=== PATIENT | female | born 1955 | race Caucasian/White ===

== ENCOUNTER 2018-10-09 07:00 | Day surgery (SDC) | payer OTHER ==
[~2018-10-09] VITALS: Ht 162.6 cm; Wt 83.9 kg
[~2018-10-09 07:00] MED LIST: 24 HOUR ALLERG9.9 ML NAS; ATENOLOL50 MG PO; BIOTIN1 MG PO; BUPROPION HCL200 MG PO; COZAAR100 MG PO; CYCLOBENZAPRINE10 MG PO; DOXYCYCLINE HY100 MG PO; FIBER THERAPY0.52 GM PO; FLUCONAZOLE150 MG PO; HAIR, SKIN & N1 EAC1 PO; HYDROCHLOROTH12.5 MG PO; LORATADINE10 MG PO; LOVASTATIN40 MG PO; MAGNESIUM400 M1 PO; MELOXICAM15 MG PO; NAPROXEN375 MG PO; NORCO 5-325 TA1 EACH PO; OMEPRAZOLE20 MG PO; OXYCODONE HCL5 MG PO; PROAIR HFA8.5 GM INH; PROBIOTIC1 EAC5 PO; VITAMIN D31000 UNI1 PO
--- NOTE | 2018-10-09 10:05 | NUR ---
10/09/18 Kurt5 Saranya Martin 1000 PT TO PACU AWAKE AND ALERT DENIES PAIN, RESP UNLABORDED. DRESSING CLEAN AND DRY
--- NOTE | 2018-10-09 10:23 | NUR ---
PT ALERT, ORIENTED AND SUPPORTED BY A FRIEND. THIS FWILL BE SURGERY #30 FOR PT. SHE SEEMED RELAXED AND HAD FEW QUESTIONS. PT REQUESTED PRAYER, WILL FOLLOW NEEDED
--- NOTE | 2018-10-09 16:07 | OR ---
[facility] [address], [place] [address] Signed DATE OF OPERATION: 10/09/2018 SURGEON: Ruslan Tamayo MD PREOPERATIVE DIAGNOSIS: Recurrent right axillary cyst/abscesses x3. POSTOPERATIVE DIAGNOSIS: Recurrent right axillary cyst/abscesses x3. PROCEDURE: Excision right axillary cyst x3. ESTIMATED BLOOD LOSS: None. INDICATIONS: Magi is a 63-year-old female who has had trouble with recurring right axillary cyst x3. There were two smaller ones inferiorly and one superiorly really up on proximal inner arm. It is closer to the axillary artery and vein. Her primary care provider had lanced these in the office, but felt they were too deep to pursue that any further. There was concern they were tracking as well since there were multiple. She was asked to see me as a general surgeon. She said she had them on and off for many years. She has also had some underneath her bra line and underneath her pannus. She said the doxycycline and the clindamycin have helped tremendously. She says she has never felt better in many many years. She has been very grateful to her primary care provider in that regard. In the office, I explained to Magi they often do track. We thought because of this and since there were multiple locations, we do it over at the hospital under good lighting with some IV sedation along with some local anesthetic. I reviewed with her the nature of the surgery along with the risks including, but not limited to bleeding, infection, scarring, change in contour of the skin as well as recurrent cyst in the same or other locations. She had expressed understanding and wished to proceed. PROCEDURE NOTE: Magi was seen in our preoperative area. We marked the three areas in the right axillary cyst. She was given 2 mg of Versed in our preop area. She was given preoperative antibiotics along with subcutaneous heparin. After this, she was taken into our operating room and placed in the supine position. SCDs were placed on her lower extremities. We did add 100 mcg of fentanyl in the operating room. After she was prepped and draped, we then used elliptical incisions around each of three areas and we Electronically Signed By: RUSLAN TAMAYO MD 10/09/18 1607 PATIENT NAME: MAGI MENA OPERATIVE REPORT DATE OF : 55 REPORT #: [id number] PHYSICIAN: RUSLAN TAMAYO MD PCP: REVA YOUNG REPORT IS CONFIDENTIAL AND NOT TO BE RELEASED WITHOUT AUTHORIZATION [facility] [address], [place] [address] Signed developed that sharply with a #15 blade knife as well as the cautery. We looked very carefully and did not find any tracking underneath the skin. All three cysts were markedly improved since I had seen her previously, I think with the help of her doxycycline and clindamycin. The underlying fat was quite healthy and we saw no tracking. After this, we had closed the dermis with interrupted 5-0 Monocryl sutures. The skin edges were reapproximated with a running 6-0 fast absorbing plain gut suture. Dry gauze and tape were then applied. Magi tolerated the procedure quite well. Ruslan Tamayo MD ALB/MODL /[id number] cc: VANITA Julian MD Copies: REVA YOUNG ANDREW L MD ~ Electronically Signed By: RUSLAN TAMAYO MD 10/09/18 1607 PATIENT NAME: MAGI MENA OPERATIVE REPORT DATE OF : 55 REPORT #: [id number] PHYSICIAN: RUSLAN TAMAYO MD PCP: REVA YOUNG REPORT IS CONFIDENTIAL AND NOT TO BE RELEASED WITHOUT AUTHORIZATION
== END 2018-10-09 10:47 | disposition home or self-care (01) ==
LOC: DS 07:00
PROVIDERS: Colon & Rectal Surgery
PROC: 0HBBXZZ Excision of Right Upper Arm Skin, External Approach (ICD-10-PCS; principal; 2018-10-09 09:00)
DX: L72.0 Epidermal cyst (principal); L02.411 Cutaneous abscess of right axilla; L90.5 Scar conditions and fibrosis of skin; I10 Essential (primary) hypertension; E78.5 Hyperlipidemia, unspecified; F17.210 Nicotine dependence, cigarettes, uncomplicated; Z88.2 Allergy status to sulfonamides; Z88.1 Allergy status to other antibiotic agents; Z88.8 Allergy status to other drugs, medicaments and biological substances; Z79.899 Other long term (current) drug therapy
CPT/HCPCS: 99153; G0500; J1100; J1644; J2250; J2405; J3010; J7120

== ENCOUNTER 2019-12-12 20:10 | Emergency (ER) | payer OTHER ==
[~2019-12-12] VITALS: Ht 162.6 cm; Wt 74.4 kg
--- OUTSIDE RECORDS SUMMARY | ~2019-12-12 | XMS | Encounter Summary ---
Demographics + + + | Address | [address] | | | [place] [address] | + + + | Home Phone | | + + + | Preferred Language | Unknown | + + + | Marital Status | Single | + + + | Anglican Affiliation | Unknown | + + + | Race | White | + + + | Ethnic Group | Not or | + + + Author + + + | Organization | Unknown | + + + | Address | Unknown | + + + | Phone | Unavailable | + + + Support + + + + + | Name | Relationship | Address | Phone | + + + + + | Kaila Ascencio | ECON | [place] | | | | | [address] | | + + + + + Care Team Providers + +------+ + | Care Director Operations Broadcast Name | Role | Phone | + +------+ + PCP | Unavailable | + +------+ + Encounter Details +--------+ + + + + | Date | Type | Department | Care Team | Description | +--------+ + + + + | 11/25/ | Transcribed | | Dictation, Other | Transcribed | | 1999 | | | | | +--------+ + + + [...] | | | + + + | Not on file | | + + + + + + + | Job Start Date | Occupation | Industry | + + + + | Not on file | Not on file | Not on file | + + + + + + + + | Travel History | Travel Start | Travel End | + + + + + + | No recent travel history available. | + + documented as of this encounter Progress Notes Interface, Pump House Technician In - 08/13/2006 3:11 AM [facility] [place] [address] [place], [place] [address] or November 25, 1998 DON SOLITARIO DO [address] [place] [address] RE: Magi Gómez MR#: [id number] Solitario: It was our pleasure to see Mrs. Gómez today in Urology Clinic. Thank you very much for sending with her the x-rays, nuclear scan and CT scan, as well as the summary of your excellent workup. You are well aware of her symptoms, so I will not bother to reiterate them for you. 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 Because of her chronic pain and recurring infections, I believe her best option is to have the upper pole segment removed. She is a single mom with four children at home, and is really unable to have this done before the end of the school year. I think it is acceptable for her to wait until then as long as she continues on suppressive antibiotics to prevent another round of pyelonephritis. Also, she is requiring occasional pain medication for which she ordinarily takes Ibuprofen and occasional Vicodin, and I think that is an acceptable treatment to see her through until January. Thank you for the kind referral and allowing me to participate in this woman's care. If you have any questions or concerns, please do not hesitate to give me a call. Sincerely, Keshav Prado M.D. EF:[id number] cc: ARLENE WEST MD [address], [address] [place] [email or web address] signed by Interface, Pump House Technician In at 08/13/2006 3:11 AM PSTdocumented in this encounter Plan of Treatment Not on filedocumented as of this encounter Visit Diagnoses Not on filedocumented in this encounter"
--- OUTSIDE RECORDS SUMMARY | ~2019-12-12 | XMS | Encounter Summary ---
Demographics + + + | Address | [address] | | | [place] [address] | + + + | Home Phone | | + + + | Preferred Language | Unknown | + + + | Marital Status | Single | + + + | Anabaptism Affiliation | Unknown | + + + | Race | White | + + + | Ethnic Group | Not or | + + + Author + + + | Author | [facility] | + + + | Organization | [facility] | + + + | Address | Unknown | + + + | Phone | Unavailable | + + + Support + + + + + | Name | Relationship | Address | Phone | + + + + + | Kaila Ascencio | [address] | [place] | | | | | [address] | | + + + + + Care Team Providers + +------+ + | Care Soda Fountain Operator Name | Role | Phone | + +------+ + PCP | Unavailable | + +------+ + Encounter Details +--------+ + + + + | Date | Type | Department | Care Team | Description | +--------+ + + + + | 01/10/ | Results | [facility] | Keshav Prado MD | | | 1998 | Only | [address] | | | | | | Loop Mailcode: [id number] | | | | | | Physician's | | | | | | [address] | | | | | | [place], [place] | | | | | | [address] | | | | | | [phone] | | | +--------+ + + + [...] as of this encounter Plan of Treatment Not on filedocumented as of this encounter Procedures + +--------+ + + + | Procedure Name | Priori | Date/Time | Associated Diagnosis | Comments | | | ty | | | | + +--------+ + + + | CHEST, 1 VIEW, | Urgent | 01/10/1999 | | Results for this | | PORTABLE | | 5:10 PM | | procedure are in the | | | | PDT | | results section. | + +--------+ + + + documented in this encounter Results CHEST, 1 VIEW, PORTABLE (01/10/1999 5:10 PM PDT) + + + + + + | Component | Value | Ref Range | Performed | Pathologist | | | | | At | Signature | + + + + + + | CHEST, 1 | Radiologist 1: MARIOLA, | | | | | VIEW, | Yasmine ALEJANDRO-Radiologist | | | | | PORTABLE | 2: FLAVIA GARNETT | | | | | Tamiko UnderwoodPORTABLE AP VIEW OF | | | | | | THE CHEST: 01/10/99. | | | | | | Dictated 01/12/99 | | | | | | FINDINGS: In the right | | | | | | mid lung, there is a | | | | | | small amount of | | | | | | linearsubsegmental | | | | | | atelectasis. The lungs | | | | | | are otherwise clear. | | | | | | The heartand | | | | | | mediastinal contours are | | | | | | unremarkable. There | | | | | | is no effusion | | | | | | orpneumothorax. The | | | | | | tip of an epidural | | | | | | catheter is over the | | | | | | midthoracic spine. | | | | | | IMPRESSION: 1. Small | | | | | | amount of right mid | | | | | | lung, linear | | | | | | subsegmental | | | | | | atelectasis. 2. | | | | | | Epidural catheter. | | | | | | END OF IMPRESSION: | | | | + + + + + + + + | Specimen | + + | | + + + +---------+ + + | Performing | Address | City/State/Zipcode | Phone Number | | Organization | | | | + +---------+ + + | [facility] | | | | | RADIOLOGY | | | | + +---------+ + + documented in this encounter Visit Diagnoses Not on filedocumented in this encounter"
--- OUTSIDE RECORDS SUMMARY | ~2019-12-12 | XMS | Encounter Summary ---
Demographics + + + | Address | [address] | | | [place] [address] | + + + | Home Phone | | + + + | Preferred Language | Unknown | + + + | Marital Status | Single | + + + | Mosque Affiliation | Unknown | + + + | Race | White | + + + | Ethnic Group | Not or | + + + Author + + + | Author | [facility] | + + + | Organization | [facility] | + + + | Address | Unknown | + + + | Phone | Unavailable | + + + Support + + + + + | Name | Relationship | Address | Phone | + + + + + | Kaila Ascencio | [address] | [place] | | | | | [address] | | + + + + + Care Team Providers + +------+ + | Care It Security Manager Name | Role | Phone | + +------+ + PCP | Unavailable | + +------+ + Encounter Details +--------+ + + + + | Date | Type | Department | Care Team | Description | +--------+ + + + + | 01/10/ | Results | LAB CORE [address] | Tam, Faculty | | | 1998 | Only | [address] | [phone] | | | | | [place], [place] | | | | | | [address] | | | | | | [phone] | | | +--------+ + + + [...] | + +--------+ + + + | SURGICAL PATHOLOGY | Routin | 01/10/1999 | | Results for this | | | e | | | procedure are in the | | | | | | results section. | + +--------+ + + + documented in this encounter Results SURGICAL PATHOLOGY (01/10/1999) + + + + + + | Component | Value | Ref Range | Performed | Pathologist | | | | | At | Signature | + + + + + + | SURGICAL | SOURCE OF SPECIMEN: SEE | | [facility] | | | PATHOLOGY | RESULTS | | DEPARTMENT | | | | Preliminary | | OF | | | | History:CLINICAL HISTORY | | PATHOLOGY | | | | Patient Age: | | | | | | 43 year old female. 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 | | | | | | Recurrentpyelonephritis | | | | | | and nonfunctioning upper | | | | | | pole. GROSS | | | | | | DESCRIPTION | | | | | | Specimens received: 1 | | | | | | in formalin. #1 | | | | | | UPPER POLE, LEFT | | | | | | KIDNEY AND LEFT UPPER | | | | | | POLE, URETER: Received | | | | | | is aportion of kidney | | | | | | measuring 2.5 x 2.5 x | | | | | | 1.5 cm, remnant of | | | | | | uretermeasuring 1.5 cm | | | | | | in length x 0.5 cm in | | | | | | diameter, and slight | | | | | | amounts ofattached | | | | | | perinephric fat weighing | | | | | | 8 grams. The serosa | | | | | | is varela to darkred, | | | | | | smooth to slightly | | | | | | scabrous. Also | | | | | | received is a length of | | | | | | ureter measuring 7.5 cm | | | | | | in length x 0.5 cmin | | | | | | diameter. The ureter | | | | | | is opened longitudinally | | | | | | to reveal a varela tolight | | | | | | pink, smooth mucosa | | | | | | with a circumference | | | | | | measuring 1.0 cm. | | | | | | Thecapsule pulls with | | | | | | ease to reveal a | | | | | | cortical surface that is | | | | | | varela to red,and | | | | | | granular. The specimen | | | | | | and the remnants of | | | | | | attached ureter | | | | | | arebivalved to reveal a | | | | | | patent ureter with a varela | | | | | | to pink mucosa. | | | | | | Thekidney reveals a | | | | | | varela to red cortex | | | | | | measuring 0.5 cm thick | | | | | | with medullaryrays and | | | | | | blunted pyramids. The | | | | | | ureter is probe patent | | | | | | into the renalpelvis. | | | | | | Palpation of the | | | | | | attached perinephric fat | | | | | | reveals no lymphnodes. | | | | | | CASSETTE INDEX:1A | | | | | | transverse and | | | | | | longitudinal section of | | | | | | ureter received free in | | | | | | specimen container, | | | | | | RS.1B anterior aspect | | | | | | of upper pole of | | | | | | kidney, with attached | | | | | | remnant of ureter, | | | | | | RS.1C posterior aspect | | | | | | of left upper pole of | | | | | | kidney with attached | | | | | | remnant of ureter, | | | | | | RS. All tissue | | | | | | sections taken are | | | | | | submitted for | | | | | | microscopic | | | | | | evaluation.SP/AH:EH/WR:t | | | | | | m FINAL | | | | | | DIAGNOSIS#1 UPPER | | | | | | POLE, LEFT KIDNEY AND | | | | | | LEFT UPPER POLE, URETER: | | | | | | RENAL TISSUE WITH | | | | | | CHANGES CONSISTENT WITH | | | | | | CHRONIC NEPHRITIS | | | | | | URETER WITH CHRONIC | | | | | | INFLAMMATION Case | | | | | | reviewed by: Dedrick Delarosa | | | | | | Yasmine MadrigalAlso seen by: | | | | | | Ronak Pino, | | | | | | Yasmine Anthony I have | | | | | | reviewed the keyfindings | | | | | | of this case with the | | | | | | fellow and agree with | | | | | | the | | | | | | interpretationprovided.T | | | | | | :01/13/99/ My | | | | | | electronic signature | | | | | | indicates that I have | | | | | | personally reviewed | | | | | | alldiagnostic slides, | | | | | | the gross and/or | | | | | | microscopic portion of | | | | | | thisreport and | | | | | | formulated the final | | | | | | diagnosis. | | | | + + + + + + + + | Specimen | + + | Other | + + + + + + + | Performing | Address | City/State/Zipcode | Phone Number | | Organization | | | | + + + + + | [facility] | [address] | [place] [address] | | | PATHOLOGY | [address] | | | + + + + + documented in this encounter Visit Diagnoses Not on filedocumented in this encounter"
--- OUTSIDE RECORDS SUMMARY | ~2019-12-12 | XMS | Clinical Summary ---
Demographics + + + | Address | [address] | | | [place] [address] | + + + | Home Phone | | + + + | Preferred Language | Unknown | + + + | Marital Status | | + + + | Mandaeism Affiliation | Unknown | + + + | Race | Unknown | + + + | Ethnic Group | Unknown | + + + Author + + + | Author | [facility] (Historical as of | | | 04-05-19) | + + + | Organization | [facility] (Historical as of | | | 04-05-19) | + + + | Address | Unknown | + + + | Phone | Unavailable | + + + Support + + +---------+ + | Name | Relationship | Address | Phone | + + +---------+ + | Janak Ascencio | ECON | Unknown | | + + +---------+ + | Jessica Thakkar | ECON | Unknown | | + + +---------+ + | Aure Ascencio | ECON | Unknown | | + + +---------+ + | Farhad Stearns | ECON | Unknown | | + + +---------+ + Care Team Providers + +------+ + | Care Shot Lighter Name | Role | Phone | + +------+ + | Karla Payna PA-C | STEVE | Unavailable | + +------+ + Allergies + + + + + + | Active Allergy | Reactions | Severity | Noted | Comments | | | | | Date | | + + + + + + | Sulfa Antibiotics | Hives | High | 10/01/19 | | | | | | 15 | | + + + + + + Current Medications + + +-------+---------+------+------+-------+ | Prescription | Sig. | Disp. | Refills | Star | End | Statu | | | | | | t | Date | s | | | | | | Date | | | + + +-------+---------+------+------+-------+ | TGT PSYLLIUM FIBER | Take 3 tablets by | | | | | Activ | | PO | mouth daily. | | | | | e | + + +-------+---------+------+------+-------+ | VIT | Take 1 tablet by | | | | | Activ | | W/NO-XJBJCCYNI-AR PO | mouth daily. | | | | | e | + + +-------+---------+------+------+-------+ | loratadine | Take 10 mg by mouth | | | | | Activ | | (CLARITIN) 10 MG | daily. | | | | | e | | tablet | | | | | | | + + +-------+---------+------+------+-------+ | naproxen sodium | Take 220 mg by mouth | | | | | Activ | | (ANAPROX) 220 MG | daily. | | | | | e | | tablet | | | | | | | + + +-------+---------+------+------+-------+ | omeprazole | Take 20 mg by mouth | | | | | Activ | | (PRILOSEC) 20 MG | every morning before | | | | | e | | capsule | breakfast. | | | | | | + + +-------+---------+------+------+-------+ | Calcium | Take 1 tablet by | | | | | Activ | | Citrate-Vitamin D | mouth daily. | | | | | e | | (CALCIUM CITRATE + | | | | | | | | D) 315-250 MG-UNIT | | | | | | | | TABS | | | | | | | + + +-------+---------+------+------+-------+ | doxycycline | Take 100 mg by mouth | | | | | Activ | | (MONODOX) 100 MG | 2 (two) times | | | | | e | | capsule | daily. | | | | | | + + +-------+---------+------+------+-------+ | Probiotic Product | Take 1 tablet by | | | | | Activ | | (TRIPLE PROBIOTIC | mouth daily. | | | | | e | | PO) | | | | | | | + + +-------+---------+------+------+-------+ | losartan (COZAAR) | Take 100 mg by mouth | | | | | Activ | | 100 MG tablet | daily. | | | | | e | + + +-------+---------+------+------+-------+ | | Take 25 mg by mouth | | | | | Activ | | hydrochlorothiazide | daily. | | | | | e | | (HYDRODIURIL) 25 MG | | | | | | | | tablet | | | | | | | + + +-------+---------+------+------+-------+ | buPROPion | Take 150 mg by mouth | | | | | Activ | | (WELLBUTRIN SR) 150 | 2 (two) times | | | | | e | | MG 12 hr tablet | daily. | | | | | | + + +-------+---------+------+------+-------+ | lovastatin | Take 20 mg by mouth | | | | | Activ | | (MEVACOR) 20 MG | nightly. | | | | | e | | tablet | | | | | | | + + +-------+---------+------+------+-------+ Active Problems + + + | Problem | Noted Date | + + + | Cervical radicular pain | 10/01/2014 | + + + + + | Last Assessment & Plan: This patient's symptoms started in | | 2013 without injury or trauma. The most severe pain she had was | | in May when her boyfriend was fighting cancer and passed | | away. Her pain over the past week has significant improved. She | | reports minimal neck pain, but the majority complaint is arm | | numbness and tingling and pain. She denies any bowel/bladder | | dysfunction. She denies any cervicogenic headaches. She has | | tried NSAIDs, Wellbutrin and a steroid pack. She had a cervical | | MRI that showed a mild broad based disk bulges at C5-6 Combined | | with facet hypertrophy contributes to severe bilateral foraminal | | narrowing. Broad based disk bulge with posterior ligament | | calcifications contributing to left foraminal narrowing. At this | | time her symptoms have mostly resolved. She is going to | | continue with conservative measures for now, however if her | | symptoms return, then she will call the office. Her symptoms are | | most likely due to the disk bulge at C5-6 and C6-7. Would | | probably proceed with a C7-T1 cervical epidural steroid injection | | under fluoroscopic guidance. We also discussed other treatment | | options, including physical therapy, gabapentin, NSAIDs, | | acupuncture, chiropractic, massage.Plan, alternatives, risks and | | potential benefits of the procedure were explained to the patient | | in great detail. The patient understands that there is no | | guarantee they will get pain relief with this procedure. They | | also understand that if they do get pain relief that there is no | | way to know how long it will last. They also understand there is | | a risk to the procedure itself which includes but are not | | limited to infection, abscess, hematoma, nerve damage, paraplegia | | or quadriplegia, increased pain, spinal headache, stroke, and | | side effects from the medications themselves. The patient wishes | | to proceed. 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) | | + + + + + | Last Assessment & Plan: Please see discussion under cervical | | radicular pain | + + Family History + + +------+ + | Medical History | Relation | Name | Comments | + + +------+ + | Heart disease | Father | | | + + +------+ + | Stroke | Father | | | + + +------+ + | Hypertension | Mother | | | + + +------+ + + +------+ + + | Relation | Name | Status | Comments | + +------+ + + | Father | | | | + +------+ + + | Mother | | Alive | | + +------+ + + Social History + +-------+ +--------+------+ | Tobacco Use | Types | Packs/Day | Years | Date | | | | | Used | | + +-------+ +--------+------+ | Current Every Day | | 0.5 | | | | Smoker | | | | | + +-------+ +--------+------+ + + +---------+ + | Alcohol Use | Drinks/We | oz/Week | Comments | | | ek | | | + + +---------+ + | Yes | 3-4 | 0.0 | | | | Standard | | | | | drinks or | | | | | | | | | | equivalen | | | | | t | | | + + +---------+ + + + + | Sex Assigned at | Date Recorded | | | | + + + | Not on file | | + + + Last Filed Vital Signs + + + + | Vital Sign | Reading | Time Taken | + + + + | Blood Pressure | 130/86 | 10/01/2014 11:39 AM PST | + + + + | Pulse | - | - | + + + + | Temperature | - | - | + + + + | Respiratory Rate | - | - | + + + + | Oxygen Saturation | - | - | + + + + | Inhaled Oxygen | - | - | | Concentration | | | + + + + | Weight | 81.6 kg (180 lb) | 10/01/2014 11:39 AM PST | + + + + | Height | 161.3 cm (5' 3.5") | 10/01/2014 11:39 AM PST | + + + + | Body Mass Index | 31.39 | 10/01/2014 11:39 AM PST | + + + + Plan of Treatment + + + + + | Health Maintenance | Due Date | Last Done | Comments | + + + + + | Vaccine: | | | | | Dtap/Tdap/Td (1 - | 4 | | | | Tdap) | | | | + + + + + | Cervical Cancer | | | | | Screening (Pap) | 5 | | | + + + + + | Vaccine: Zoster (1 | | | | | of 2) | 5 | | | + + + + + | Vaccine: Influenza | | | | | (Season Ended) | 0 | | | + + + + + Results Not on filefrom Last 3 Months Insurance + +--------+ +------+-------+ + | Payer | Benefi | Subscriber | Type | Phone | Address | | | t Plan | ID | | | | | | / | | | | | | | Group | | | | | + +--------+ +------+-------+ + | MEDICAID | [place] | [id number] | | | [address] | | | N | | | | [place], [place] | | | [place] | | | | [phone] | | | [employer] | | | | | + +--------+ +------+-------+ + + +--------+ +--------+ + + | Guarantor Name | Accoun | Relation to | Date | Phone | Billing Address | | | t Type | Patient | of | | | | | | | | | | + +--------+ +--------+ + + | MAGI GÓMEZ | Person | Self | [birth year] | Work: | [address] | | [address] | | [phone] | [phone] | [place] [address] | | | vince | | | [phone] Home: | | | | | | | | | | | | | | [phone] | | | | | | | 1 | | + +--------+ +--------+ + +
--- OUTSIDE RECORDS SUMMARY | ~2019-12-12 | XMS | Clinical Summary ---
Demographics + + + | Address | [address] | | | [place] [address] | + + + | Home Phone | | + + + | Preferred Language | Unknown | + + + | Marital Status | Single | + + + | Worship Affiliation | Unknown | + + + [...] [place] | | | | | [id number] | | + + + + + Care Team Providers + +------+ + | Care Pulper Tender Name | Role | Phone | + +------+ + PCP | Unavailable | + +------+ + Source Comments KEENAN is fully live on both [facility] and [facility] Allergies Not on File Medications Not on file Active Problems Not on file Social History + +-------+ +--------+------+ | Tobacco [...] recent travel history available. | + + Last Filed Vital Signs Not on file Plan of Treatment + + + + + | Health Maintenance | Due Date | Last Done | Comments | + + + + + | Influenza (Flu) | | | | | vaccination (#1) | 9 | | | + + + + + | Pneumococcal | Aged Out | | No longer eligible | | vaccination | | | based on patient's | | | | | age to complete this | | | | | topic | + + + + + Results Not on filefrom Last 3 Months"
--- OUTSIDE RECORDS SUMMARY | ~2019-12-12 | XMS | Encounter Summary ---
Demographics + + + | Address | [address] | | | [place] [address] | + + + | Home Phone | | + + + | Preferred Language | Unknown | + + + | Marital Status | Single | + + + | Hoahaoism Affiliation | Unknown | + + + | Race | White | + + + | Ethnic Group | Not or | + + + Author + + + | Author | [facility] | + + + | Organization | [facility] | + + + | Address | Unknown | + + + | Phone | Unavailable | + + + Support + + + + + | Name | Relationship | Address | Phone | + + + + + | Kaila Ascencio | JOEY | [place] | | | | | [phone] | | + + + + + Care Team Providers + +------+ + | Care Military Source Operations Specialist Name | Role | Phone | + +------+ + PCP | Unavailable | + +------+ + Encounter Details +--------+ + + + + | Date | Type | Department | Care Team | Description | +--------+ + + + + | 11/25/ | Office | [facility] | Note, Outpatient | Progress Note | | 1998 | Visit-Trans | MEDICINE | Clinic | | | | cribed | | | | +--------+ + + [...] as of this encounter Progress Notes Interface, Computer Forensics Analyst In - 08/13/2006 3:11 AM PSTCLINIC DATE: 11/25/1998 ADULT UROLOGY CLINIC HISTORY OF PRESENT ILLNESS: The patient is a 45-year-old female who is referred from her family practitioner, Dany Orozco M.D., in [facility] for chronic pyelonephritis. The patient notes that she has had urinary difficulties dating back as far as 20 years ago. She was hospitalized at age 18 for pyelonephritis and has had a history of one to two kidney infections since. The patient reports that her kidney infections are always on her left side. When she begins experiencing this left-sided flank pain, she contacts her family practitioner in [place], who then treats her with a 10-day course of antibiotics. The symptoms always resolve after the course of antibiotics, but then recur. The patient had a hysterectomy three years ago, and since the hysterectomy, the left-sided kidney infections have increased in frequency to three to four times per year. In July of 1998, the patient presented to an emergency room in [place] with excruciating left-sided flank pain and was found to have a white blood cell count of 23,000 and a temperature of 101F. She was hospitalized and treated for pyelonephritis for five days. After discharge from this hospital in [place], the patient received a Urology consult. A CAT scan showed a probable ureterocele and cystoscopy confirmed the ureterocele. 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 The patient reports that she is currently in constant left-sided flank pain, which she describes more as a discomfort. She takes aspirin and Tylenol for the pain, but has taken Vicodin in the past. She does have urgency with urination and gets up one to times per night to urinate. She denies having any dysuria. She does occasionally have stress incontinence. She denies any hematuria. She denies any fever or chills at this time. PAST MEDICAL HISTORY: Negative. PAST SURGICAL HISTORY: Includes: a hysterectomy in 1996 for irregular Pap smears; a right ovarian cyst removal at age 12; an appendectomy at age 12, at the same time as the right ovarian cyst removal; two subsequent surgeries for ovarian cysts; gallbladder removal in 1989; section in 1982; three vaginal births; and bone spur removal from her left elbow in 1984. MEDICATIONS: 1. Macrodantin, 100 mg q.h.s. 2. Premarin, 1.25 mg q.d. 3. Claritin-D, 24-Hour, 1 q.d. 4. Aspirin p.r.n. 5. Tylenol p.r.n. 6. Multivitamin. HABITS: The patient is a smoker. She smokes one-half pack per day for the past 20 years. She drinks alcohol in the amount of three to five beers per night. SOCIAL HISTORY: The patient lives in [facility]. She is a single mother with four children, ranging in age from 10 to 18. 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 FAMILY HISTORY: There is no family history of kidney problems and no family history of cancer. The patient's mother has hypertension. There is no family history of coronary artery disease or diabetes mellitus. REVIEW OF SYSTEMS: GENERAL: The patient is a pleasant 45-year-old white female who appears her stated age, is cooperative, and does not appear to be in any acute distress. HEENT: Negative, other than that the patient wears glasses. The patient denies any increased fatigue. She says that she is under a lot of stress and has gained 40 lb. since her hysterectomy three years ago. CARDIOVASCULAR: Negative. LUNGS: Negative. GI: Negative. NEUROLOGICAL: The patient does have some dizziness, which she attributes to inner ear problems. The patient also has occasional tension headaches, but denies any focal neural symptoms. MUSCULOSKELETAL: Negative. GENITOURINARY: As above. PHYSICAL EXAMINATION: VITAL SIGNS: BLOOD PRESSURE: 120/74. HEART: Regular rate and rhythm, without murmurs. LUNGS: Clear to auscultation bilaterally. ABDOMEN: Mildly obese, but nondistended. Normoactive bowel sounds are present. No tenderness is present, and no masses were felt. No hepatosplenomegaly is present. BACK: There is left-sided costovertebral angle tenderness but no right-sided costovertebral angle tenderness. EXTREMITIES: Show no edema. LABORATORY DATA: Urinalysis showed a specific gravity of 1.005, pH 6, and was negative for glucose, protein, blood, leukocyte esterase, and nitrites. ASSESSMENT: 1. Chronic pyelonephritis. 2. Left-sided duplex renal system with ureterocele. 3. Poorly-functioning left upper pole of kidney. PLAN: 1. A discussion was had with the patient regarding options for treatment of her chronic pyelonephritis. The patient was in agreement that surgery would be the best option. The patient will call Dr. Prado to schedule a left upper pole nephrectomy for sometime during the summer of 1998. 2. The patient was advised to continue Macrodantin, 100 mg q.h.s., which can be taken as 100 mg b.i.d. if the patient experiences symptoms of increasing left-sided flank pain. 3. The patient was given Vicodin, to be taken 1 q.6h., p.r.n., #30, for left-sided flank pain. Jennie Singh, MS3 Dictating for: Yasmine Fox/ documented in this encounter Plan of Treatment Not on filedocumented as of this encounter Visit Diagnoses Not on filedocumented in this encounter"
--- OUTSIDE RECORDS SUMMARY | ~2019-12-12 | XMS | Encounter Summary ---
Demographics + + + | Address | [address] | | | [place] [address] | + + + | Home Phone | | + + + | Preferred Language | Unknown | + + + | Marital Status | | + + + | Confucianist Affiliation | [id number] | + + + | Race | Unknown | + + + | Ethnic Group | Unknown | + + + Author + + + | Author | [facility] | | | and [place] | + + + | Organization | [facility] | | | and [place] | + + + | Address | Unknown | + + + | Phone | Unavailable | + + + Support + + +---------+ + | Name | Relationship | Address | Phone | + + +---------+ + | Aure Ascencio | ECON | Unknown | | + + +---------+ + Care Team Providers + +------+ + | Care Promotion Manager Name | Role | Phone | + +------+ + PCP | Unavailable | + +------+ + Encounter Details +--------+ + + + + | Date | Type | Department | Care Team | Description | +--------+ + + + + | 08/18/ | Hospital | [facility] [place] [facility] | Conversion | Pain | | 2014 | Encounter | CONVERSION DEP [address] | Transaction, | | | | | DERRICK RIZZO | Provider Unknown | | | | | [place] | | | | | | [phone] | | | | | | [phone] | | | +--------+ + + + [...] Note | + + | Magdaleno Michaels Conversion - 04/04/2019 6:02 PM PDT This is a non-reportable procedure | | without a radiologist report and isused for image storage only | + + documented in this encounter Visit Diagnoses + + | Diagnosis | + + | Pain Generalized pain | + + documented in this encounter"
--- OUTSIDE RECORDS SUMMARY | ~2019-12-12 | XMS | Clinical Summary ---
Demographics + + + | Address | [address] | | | [place] [address] | + + + | Home Phone | | + + + | Preferred Language | Unknown | + + + | Marital Status | Single | + + + | Congregation Affiliation | Unknown | + + + [...] [place] | | | | | [address] | | + + + + + Care Team Providers + +------+ + | Care Javascript Front End Developer Name | Role | Phone | + +------+ + PCP | Unavailable | + +------+ + Source Comments KEENAN is fully live on both [facility] and [facility] InPatient.[facility] Allergies Not on File Medications Not on [...]
--- OUTSIDE RECORDS SUMMARY | ~2019-12-12 | XMS | Encounter Summary ---
Demographics + + + | Address | [address] | | | [place] [address] | + + + | Home Phone [...] [place] | | | | | [address] | | + + + + + Care Team Providers + +------+ + | Care Poultry Farmer Name | Role | Phone | + [...] as of this encounter Progress Notes Interface, Shop Cooper In - 08/13/2006 3:11 AM [facility] and [place] [id number] [place], [place] [address] or November 25, 1998 DON SOLITARIO DO [address] [place] [address] RE: Magi Gómez MR#: [id number] [...] [address], [address] [place] [address]Urnaesggavsevs signed by Interface, Shop Cooper In at 08/13/2006 3:11 AM PSTdocumented in this encounter Plan of Treatment Not on filedocumented as of this encounter Visit Diagnoses Not on filedocumented in this encounter"
--- OUTSIDE RECORDS SUMMARY | ~2019-12-12 | XMS | Encounter Summary ---
Demographics + + + | Address | [address] | | | [place] [address] | + + + | Home Phone | | + + + | Preferred Language | Unknown | + + + | Marital Status | Single | + + + | Buddhism Affiliation | Unknown | + + + [...] [place] | | | | | [address] | | + + + + + Care Team Providers + +------+ + | Care Jewelry Setter Name | Role | Phone | + [...] | Transcriptions | + + | Interface, Inking Machine Tender In - 08/10/2006 5:08 AM PST | | [place] [address] | | [place], [place] [address] | | [facility] CountyOPER[facility] RECORDMed Rec No.: | | [id number] Date: 01/10/1999Name: Magi GómezREINALDO SURGEON:Keshav Daniels | | Yasmine PradoASSISTANTS: Bridger [...] a running 3-0 Chromic. Next, the 10th ztt72ky ribs were | | approximated with a single 0-Biosyn and the posterior fasciawas approximated using a | | running 0-Biosyn. Next, the anterior fascia wasclosed with xyuelm-cx-rrdgw 0-Maxon. | | Prior to starting the closure, weplaced a #20 Latvian red Macias catheter into | | the [...] | Urology Professor, Surgery/UrologyCK:x11D: 01/10/1999T: | | 01/11/1999#[id number]: | |incision was made over the 11th [...] the anterior fascia was | |closed with brrmfw-hd-ikiam 0-Maxon. Prior to starting the closure, we | |placed a #20 Latvian red Macias catheter into the pleural cavity [...] | | | | | | | |#[id number] | | | | | |[id number] | |CC: | + + documented in this encounter Visit Diagnoses Not on filedocumented in this encounter"
--- OUTSIDE RECORDS SUMMARY | ~2019-12-12 | XMS | Clinical Summary ---
Demographics + + + | Address | [address] | | | [place] [address] | + + + | Home Phone | | + + + | Preferred Language | Unknown | + + + | Marital Status | | + + + | Sikh Affiliation | 1073 | + + + | Race | Unknown | + + + | Ethnic Group | Unknown | + + + Author + + + | Author | [facility] | | | and [place] | + + + | Organization | [facility] | | | and [...] Providers + +------+ + | Care Child Care Aide Name | Role | Phone | + +------+ + | Karla Payan PA-C | PCP | | + +------+ + Allergies Not on File Medications Not on file Active Problems Not on file Family History + + +------+ + | [...] | | + +------+ + + | Father | | | | + +------+ + + | Mother | | Alive | | + +------+ + + | Mother | | | | + +------+ + [...] + + + | Hepatitis C | | | | | Screening | 5 | | | + + + + + | Vaccine: | | | | | Pneumococcal 19- | 1 | | | | (1 of 1 - PPSV23) | | | | + + + + + | Vaccine: | | | | | Dtap/Tdap/Td (1 - | 6 | | | | Tdap) | | | | + + + + + | Cervical Cancer | | | | | Screening (Pap) | 5 | | | + + + + + | Colorectal Cancer | | | | | Screening | 5 | | | | (Colonoscopy) | | | | + + + [...] Results Not on filefrom Last 3 Months Advance Directives + + + + + | Type | Date Recorded | Patient | Explanation | | | | Account Classification Clerk | | + + + + + | Power of | | | | | Repack Room Worker | | | | + + + + + | Advance | | | | | Directive | | | | + + + + +"
--- OUTSIDE RECORDS SUMMARY | ~2019-12-12 | XMS | Encounter Summary ---
Demographics + + + | Address | [address] | | | [place] [address] | + + + | Home Phone | | + + + | Preferred Language | Unknown | + + + | Marital Status | Single | + + + | Catholic Affiliation | Unknown | + + + [...] [place] | | | | | [address] | | + + + + + Care Team Providers + +------+ + | Care Willower Name | Role | Phone | + [...] | Transcriptions | + + | Interface, Municipal Court Magistrate In - 08/10/2006 5:08 AM PST | | [place] [address] [address] | | [place], [place] [address] | | [facility] | | [id number] Date: [...] a running 3-0 Chromic. Next, the 10th buo50qd ribs were | | approximated with a single 0-Biosyn and the posterior fasciawas approximated using a | | running 0-Biosyn. Next, the anterior fascia wasclosed with cftsar-dd-zhbzr 0-Maxon. | | Prior to starting the closure, weplaced a #20 Armenian red Macias catheter into | | the [...] | Urology Professor, Surgery/UrologyCK:x11D: 01/10/1999T: | | 01/11/1999#[id number]: | |incision was made over the 11th [...] the anterior fascia was | |closed with iyvmov-ou-oeyfb 0-Maxon. Prior to starting the closure, we | |placed a #20 Armenian red Macias catheter into the pleural cavity [...] | | | | | | | |#[id number] | | | | | |[id number] | |CC: | + + documented in this encounter Visit Diagnoses Not on filedocumented in this encounter"
--- OUTSIDE RECORDS SUMMARY | ~2019-12-12 | XMS | Encounter Summary ---
Demographics + + + | Address | [address] | | | [place] [address] | + + + | Home Phone | | + + + | Preferred Language | Unknown | + + + | Marital Status | Single | + + + | Gnosticism Affiliation | Unknown | + + + | Race | White | + + + | Ethnic Group | Not or | + + + Author + + + | Author | [facility] | + + + | Organization | [facility] | + + + | Address | Unknown | + + + | Phone | Unavailable | + + + Support + + + + + | Name | Relationship | Address | Phone | + + + + + | Kaila Ascencio | JOEY | [place] | | | | | [address] | | + + + + + Care Team Providers + +------+ + | Care Gas Station Cashier Name | Role | Phone | + [...] as of this encounter Progress Notes Interface, Dry Wall Plasterer In - 08/08/2006 1:08 AM PSTCLINIC DATE: [...] sought care at the emergency room in [place], [place] where she was started on antibiotics. [...] Follow up with her primary doctor in [place], [place]. Bridger Gonzalez M.D. Keshav Prado M.D. DORIS/niraj cc: ARLENE WEST DO [address] [facility] [id number] signed by Interface, Dry Wall Plasterer In at 08/08/2006 1 :08 AM PSTdocumented in this encounter Plan of Treatment Not on filedocumented as of this encounter Visit Diagnoses Not on filedocumented in this encounter"
--- OUTSIDE RECORDS SUMMARY | ~2019-12-12 | XMS | Encounter Summary ---
Demographics + + + | Address | [address] | | | [place] [address] | + + + | Home Phone | | + + + | Preferred Language | Unknown | + + + | Marital Status | Single | + + + | Jain Affiliation | Unknown | + + + [...] [place] | | | | | [address] | | + + + + + Care Team Providers + +------+ + | Care Bell Cleaner Name | Role | Phone | + [...] [id number] | | | | | | [place], [place] | | | | | | [address] | | | | | | [phone] | | | +--------+ + + + [...] + + + + + | [facility] | [address] | [place] [address] | | | PATHOLOGY | [address] [...] + + + + + | [facility] | [address] | [place] [address] | | | PATHOLOGY | [address] [...] + + + + + | [facility] | [address] | [place] [address] | | | PATHOLOGY | [address] | | | + + + + + documented in this encounter Visit Diagnoses Not on filedocumented in this encounter"
--- OUTSIDE RECORDS SUMMARY | ~2019-12-12 | XMS | Encounter Summary ---
Demographics + + + | Address | [address] | | | [place] [address] | + + + | Home Phone | | + + + | Preferred Language | Unknown | + + + | Marital Status | | + + + | Temple Affiliation | 1073 | + + + | Race | Unknown | + + + | Ethnic Group | Unknown | + + + Author + + + | Author | [facility] | | | and [place] | + + + | Organization | [facility] | | | and [place] | [...] Providers + +------+ + | Care Mold Puller Name | Role | Phone | + [...] | [address] | MD [address], | arthritis of right | | | | [address] [place], [place] | 6th FLO[address] [place], | knee (Primary Dx); | | | | [address] | [place] [address] | Acute medial | | | | | | meniscus tear of | | [...] be different fro m the original. R[place] SOW : 1955 [facility] MR#: [id number] [facility] MR#: February 13, 2019 History of [...] document has been authenticated but not proofread [id number] signed by Lauri Malave MD at 04/01/2019 3:06 PM P Lauri Vences MD - 02/13/2019 8:00 AM PDTThis note has been dictated. Lauri May MD - 02/13/2019 7:57 AM PDT R[place] SOW : 1955 [facility] MR#: [id number] [facility] MR#: February 13, 2019 History of [...] document has been authenticated but not proofread [id number] signed by Lauri Malave MD at 02/13/2019 10:11 AM P DTdocumented in this encounter Plan of Treatment Not on filedocumented as of this encounter Visit Diagnoses + [...] | | | | | ONCE, [facility] 02/13/19 at 0815, For 1 | | | | | | | dose, Shake well. Not for IV | | | | | | | use., | | | | | | + +--------+ +-------+------+------+ +---+---+ | | | +---+---+ documented in this encounter"
--- OUTSIDE RECORDS SUMMARY | ~2019-12-12 | XMS | Encounter Summary ---
Demographics + + + | Address | [address] | | | [place] [address] | + + + | Home Phone | | + + + | Preferred Language | Unknown | + + + | Marital Status | | + + + | Jain Affiliation | 1073 | + + + | Race | Unknown | + + + | Ethnic Group | Unknown | + + + Author + + + | Author | [facility] | | | and [place] | + + + | Organization | [facility] | | | and [place] [...] Team Providers + +------+ + | Care Wildlife Refuge Specialist Name | Role | Phone | + +------+ + PCP | Unavailable | + +------+ + Encounter Details +--------+ + + + + | Date | Type | Department | Care Team | Description | +--------+ + + + + | 08/18/ | Hospital | [facility] GENER[facility] IP | Conversion | Pain | | 2014 | Encounter | CONVERSION DEP [address] | Transaction, | | | | | DERRICK RIZZO | Provider Unknown | | | | | [place] | | | | | | [address] | | | | | | [phone] | | | +--------+ + + + [...]
--- OUTSIDE RECORDS SUMMARY | ~2019-12-12 | XMS | Clinical Summary ---
Demographics + + + | Address | [address] | | | [place] [address] | + + + | Home Phone | | + + + | Preferred Language | Unknown | + + + | Marital Status | | + + + | Quaker Affiliation | Unknown | + + + | Race | Unknown | + + + | Ethnic Group | Unknown | + + + Author + + + | Author | [facility] (Historical as of | | | 04-05-19) | + + + | Organization | [facility] (Historical as of | | | 04-05-19) [...] Team Providers + +------+ + | Care Stock Handler Floorperson Name | Role | Phone | + +------+ + | Karla Payan PA-C | STEVE | Unavailable | + [...] | | | | Activ | | [id number] PO | mouth daily. | | | [...] +------+-------+ + | MEDICAID | [place] | [id number] | | | [address] | | | N | | | | [place], [place] | | | [place] | | | | [address] | | | FISH TENDER | | | | | + +--------+ [...] | | al/Derek | | 1954 | [phone] | [place] [address] | | | vince | | | [phone] Home: | | | | | | | | | | | | | | [phone] | | | | | | | 1 | | + +--------+ +--------+ + +
--- OUTSIDE RECORDS SUMMARY | ~2019-12-12 | XMS | Encounter Summary ---
Demographics + + + | Address | [address] | | | [place] [address] | + + + | Home Phone | | + + + | Preferred Language | Unknown | + + + | Marital Status | Single | + + + | Roman Catholic Affiliation | Unknown | + + [...] [place] | | | | | [address] | | + + + + + Care Team Providers + +------+ + | Care Stave And Bolt Equalizer Name | Role | Phone | + [...] as of this encounter Discharge Summaries Interface, Kick Press Setter In - 08/10/2006 5:[address] [address] [facility] MEDICAL SUMMARY OF HOSPITALIZATION Med [...] nephrectomy. The patient agreed and presented to [facility] for management. HOSPITAL COURSE: The patient was [...] follow up with her referring physician in [place]. Should she have any complications or problems related to her surgery, we will be happy to see her again in [place]. Bridger Gonzalez M.D. Keshav Prado M.D. CFK/pad A cc: DON DOHERTY DO [address] [place] [address] ARLENE WETS DO [address] [place] [address]Oyrdxieabmozia signed by Interface, Kick Press Setter In at 08/10/2006 5:08 AM PSTdocumented in this encounter Plan of Treatment Not on filedocumented as of this encounter Visit Diagnoses Not on filedocumented in this encounter"
--- OUTSIDE RECORDS SUMMARY | ~2019-12-12 | XMS | Clinical Summary ---
Demographics + + + | Address | [address] | | | [place] [address] | + + + | Home Phone | | + + + | Preferred Language | Unknown | + + + | Marital Status | | + + + | Sabianist Affiliation | 1073 | + + + | Race | Unknown | + + + | Ethnic Group | Unknown | + + + Author + + + | Author | [facility] | | | and [place] | + + + | Organization | [facility] | | | and [place] [...] Team Providers + +------+ + | Care Casino Host Name | Role | Phone | + [...] Patient | Explanation | | | | Customer Support Representative | | + + + + + | Power of | | | | | Slag Worker | | | | + + + + + | Advance | | | | | Directive | | | | + + + + +"
--- OUTSIDE RECORDS SUMMARY | ~2019-12-12 | XMS | Encounter Summary ---
Demographics + + + | Address | [address] | | | [place] [address] | + + + | Home Phone | | + + + | Preferred Language | Unknown | + + + | Marital Status | | + + + | Jain Affiliation | 1073 | + + + | Race | Unknown | + + + | Ethnic Group | Unknown | + + + Author + + + | Author | [facility] | | | and [place] | + + + | Organization | [facility] | | | and [place] [...] Providers + +------+ + | Care Private Detective Name | Role | Phone | + +------+ + PCP | Unavailable | + +------+ + Encounter Details +--------+ + + + + | Date | Type | Department | Care Team | Description | +--------+ + + + + | 02/18/ | Hospital [facility] | Unknown, | | | 2000 | Encounter | MED CTR XRAY [address] | MD Leatha . | | | | | [address] | | | | | | [place] [address] | (Fax) | | | | | [phone] | | | +--------+ + + + [...]
--- OUTSIDE RECORDS SUMMARY | ~2019-12-12 | XMS | Encounter Summary ---
Demographics + + + | Address | [address] | | | [place] [address] | + + + | Home Phone | | + + + | Preferred Language | Unknown | + + + | Marital Status | Single | + + + | Buddhist Affiliation | Unknown | + + + [...] [place] | | | | | [address] | | + + + + + Care Team Providers + +------+ + | Care Hair Baler Name | Role | Phone | + [...] as of this encounter Progress Notes Interface, Media Relations Director In - 08/13/2006 3:11 AM [facility] [place] [facility] [place] [address] [place], [place] [address] or December 03, 1998 ARLENE WEST MD [address] [place] [address] [place] [address] RE:MAGI GÓMEZ MR#:[id number] West: Mrs. Gómez was seen in the Urology Clinic last week for her problem of chronic and recurring right flank pain and pyelonephritis. As you know, she was worked up by Dr. 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 Sincerely, Keshav Prado M.D. DILIP/cornelia [id number] signed by Interface, Media Relations Director In at 08/13/2006 3:11 AM PSTdocume nted in this encounter Plan of Treatment Not on filedocumented as of this encounter Visit Diagnoses Not on filedocumented in this encounter"
--- OUTSIDE RECORDS SUMMARY | ~2019-12-12 | XMS | Encounter Summary ---
Demographics + + + | Address | [address] | | | [place] [address] | + + + | Home Phone | | + + + | Preferred Language | Unknown | + + + | Marital Status | Single | + + + | Mu-Ism Affiliation | Unknown | + + + | Race | White | + + + | Ethnic Group | Not or | + + + Author + + + | Author | [facility] | + + + | Organization | [facility] | + + + | Address | Unknown | + + + | Phone | Unavailable | + + + Support + + + + + | Name | Relationship | Address | Phone | + + + + + | Kaila Ascencio | JOEY | [place] | | | | | [address] | | + + + + + Care Team Providers + +------+ + | Care Machine Hose Cutter Name | Role | Phone | [...] | Only | [address] | [phone] | | | | | [place], [place] | | | | | | [address] | | | | | | [phone] | | | +--------+ + + + [...] | + + + + + | [facility] | [address] | [place] [address] | | | PATHOLOGY | [address] | | | + + + + + documented in this encounter Visit Diagnoses Not on filedocumented in this encounter"
--- OUTSIDE RECORDS SUMMARY | ~2019-12-12 | XMS | Encounter Summary ---
Demographics + + + | Address | [address] | | | [place] [address] | + + + | Home Phone | | + + + | Preferred Language | Unknown | + + + | Marital Status | Single | + + + | Quaker Affiliation [...] [place] | | | | | [address] | | + + + + + Care Team Providers + +------+ + | Care Machine Hostler Name | Role | Phone | + [...] as of this encounter Discharge Summaries Interface, Litigation Specialist In - 08/10/2006 5:[address] [address] [facility] MEDICAL [...] nephrectomy. The patient agreed and presented to [facility] for management. HOSPITAL COURSE: The patient was [...] follow up with her referring physician in [place]. Should she have any complications or problems related to her surgery, we will be happy to see her again in [place]. Bridger Gonzalez M.D. Keshav Prado M.D. CFK/pad A cc: DON DOHERTY DO [address] [place] [address] ARLENE WEST DO [address] [place] [address]Xliaarsdmgfwgf signed by Interface, Litigation Specialist In at 08/10/2006 5:08 AM PSTdocumented in this encounter Plan of Treatment Not on filedocumented as of this encounter Visit Diagnoses Not on filedocumented in this encounter"
--- OUTSIDE RECORDS SUMMARY | ~2019-12-12 | XMS | Encounter Summary ---
Demographics + + + | Address | [address] | | | [place] [address] | + + + | Home Phone | | + + + | Preferred Language | Unknown | + + + | Marital Status | | + + + | Mosque Affiliation | 1073 | + + + | Race | Unknown | + + + | Ethnic Group | Unknown | + + + Author + + + | Author | [facility] | | | and [place] | + + + | Organization | [facility] | | | and [place] [...] Team Providers + +------+ + | Care Cracker Sprayer Name | Role | Phone | + +------+ + PCP | Unavailable | + +------+ + Encounter Details +--------+ + + + + | Date | Type | Department | Care Team | Description | +--------+ + + + + | 08/18/ | Hospital | [facility] | Conversion | Neck pain | | 2013 | Encounter | CONVERSION [address]P [address] | Transaction, | | | | | [address]IZZO | Provider Unknown | | | | | [place] | | | | | | [address] | | | | | | [phone] | | | +--------+ + + + [...]
--- OUTSIDE RECORDS SUMMARY | ~2019-12-12 | XMS | Encounter Summary ---
Demographics + + + | Address | [address] | | | [place] [address] | + + + | Home Phone | | + + + | Preferred Language | Unknown | + + + | Marital Status | | + + + | Denominational Affiliation | 1073 | + + + | Race | Unknown | + + + | Ethnic Group | Unknown | + + + Author + + + | Author | [facility] | | | and [place] | + + + | Organization | [facility] | | | and [place] [...] Team Providers + +------+ + | Care Lower In Supervisor Name | Role | Phone | + [...] | [address] | MD [address], | arthritis of right | | | | [address] [place], [place] | 6th FLO[address] [place], | knee (Primary Dx); | | | | [address] | [place] [address] | Acute medial | | | | [...] m the original. R[place] SOW : 1955 [facility] MR#: [id number] [facility] MR#: February 13, 2019 History [...] document has been authenticated but not proofread [id number] signed by Lauri Malave MD at 04/01/2019 3:06 PM P Lauri Vences MD - 02/13/2019 8:00 AM PDTThis note has been dictated. Lauri May MD - 02/13/2019 7:57 AM PDT [place] SOW : 1955 [facility] MR#: [id number] [facility] MR#: February 13, 2019 History [...] document has been authenticated but not proofread [id number] signed by Lauri Malave MD at 02/13/2019 [...] PDT | | | | | ONCE, [facility] 02/13/19 at 0815, For 1 | | | | | | | dose, Shake well. Not for IV | | | | | | | use., | | | | | | + +--------+ +-------+------+------+ +---+---+ | | | +---+---+ documented in this encounter"
--- OUTSIDE RECORDS SUMMARY | ~2019-12-12 | XMS | Encounter Summary ---
Demographics + + + | Address | [address] | | | [place] [address] | + + + | Home Phone | | + + + | Preferred Language | Unknown | + + + | Marital Status | | + + + | Mosque Affiliation | 1073 | + + + | Race | Unknown | + + + | Ethnic Group | Unknown | + + + Author + + + | Author | [facility] | | | and [place] | + + + | Organization | [facility] | | | and [place] [...] Team Providers + +------+ + | Care Full Time Babysitter Name | Role | Phone | + +------+ + PCP | Unavailable | + +------+ + Encounter Details +--------+ + + + + | Date | Type | Department | Care Team | Description | +--------+ + + + + | 02/18/ | Hospital | [facility] | Unknown, | | | 2000 | Encounter | MED CTR XRAY [address] | MD [address] . | | | | | [address] | | | | | | [place] [address] | (Fax) | | | | | [phone] | | | +--------+ + + + [...]
--- OUTSIDE RECORDS SUMMARY | ~2019-12-12 | XMS | Encounter Summary ---
Demographics + + + | Address | [address] | | | [place] [address] | + + + | Home Phone | | + + + | Preferred Language | Unknown | + + + | Marital Status | Single | + + + | Congregational Affiliation | Unknown | + + + | Race | White | + + + | Ethnic Group | Not or | + + + Author + + + | Author | [facility] | + + + | Organization | [facility] | + + + | Address | Unknown | + + + | Phone | Unavailable | + + + Support + + + + + | Name | Relationship | Address | Phone | + + + + + | Kaila Ascencio | JOEY | [place] | | | | | [address] | | + + + + + Care Team Providers + +------+ + | Care Window Installer Name | Role | Phone | + [...] [id number] | | | | | | [place], [place] | | | | | | [address] | | | | | | [phone] | | | +--------+ + + + [...] + + + + + | [facility] | [address] | [place] [address] | | | PATHOLOGY | [address] [...] + + + + + | [facility] | [address] | [place] [address] | | | PATHOLOGY | [address] [...] + + + + + | [facility] | [address] | [place] [address] | | | PATHOLOGY | [address] | | | + + + + + documented in this encounter Visit Diagnoses Not on filedocumented in this encounter"
--- OUTSIDE RECORDS SUMMARY | ~2019-12-12 | XMS | Encounter Summary ---
Demographics + + + | Address | [address] | | | [place] [address] | + + + | Home Phone | | + + + | Preferred Language | Unknown | + + + | Marital Status | Single | + + + | Jew Affiliation | Unknown | + + + | Race | White | + + + | Ethnic Group | Not or | + + + Author + + + | Author | [facility] | + + + | Organization | [facility] | + + + | Address | Unknown | + + + | Phone | Unavailable | + + + Support + + + + + | Name | Relationship | Address | Phone | + + + + + | Kaila Ascencio | JOEY | [place] | | | | | [address] | | + + + + + Care Team Providers + +------+ + | Care Dust Sampler Name | Role | Phone | + [...] [address] | | | | | | [place], [place] | | | | | | [address] | | | | | | [phone] | | | +--------+ + + + [...] | | + +---------+ + + | [facility] DEPARTMENT OF | | | | | RADIOLOGY | | | | + +---------+ + + documented in this encounter Visit Diagnoses Not on filedocumented in this encounter"
--- OUTSIDE RECORDS SUMMARY | ~2019-12-12 | XMS | Encounter Summary ---
Demographics + + + | Address | [address] | | | [place] [address] | + + + | Home Phone | | + + + | Preferred Language | Unknown | + + + | Marital Status | Single | + + + | Amish Affiliation | Unknown | + + + | Race | White | + + + | Ethnic Group | Not or | + + + Author + + + | Author | [facility] | + + + | Organization | [facility] | + + + | Address | Unknown | + + + | Phone | Unavailable | + + + Support + + + + + | Name | Relationship | Address | Phone | + + + + + | Kaila Ascencio | JOEY | [place] | | | | | [address] | | + + + + + Care Team Providers + +------+ + | Care Water Softener Service Supervisor Name | Role | Phone | [...] as of this encounter Progress Notes Interface, Electrician Chief In - 08/08/2006 1:08 AM PSTCLINIC DATE: [...] sought care at the emergency room in [place], [place] where she was started on antibiotics. [...] Follow up with her primary doctor in [place], [place]. Bridger Gonzalez M.D. Keshav Prado M.D. DORIS/niraj cc: ARLENE WEST DO [address] [facility] [id number] signed by Interface, Electrician Chief In at 08/08/2006 1 :08 AM PSTdocumented in this encounter Plan of Treatment Not on filedocumented as of this encounter Visit Diagnoses Not on filedocumented in this encounter"
--- OUTSIDE RECORDS SUMMARY | ~2019-12-12 | XMS | Encounter Summary ---
Demographics + + + | Address | [address] | | | [place] [address] | + + + | Home Phone [...] + + + | Author | [facility] | + + + | Organization | [facility] | + + + | Address | Unknown | + + + | Phone | Unavailable | + + + Support + + + + + | Name | Relationship | Address | Phone | + + + + + | Kaila Ascencio | JOEY | [place] | | | | | [address] | | + + + + + Care Team Providers + +------+ + | Care Dispatcher Service Or Work Name | Role | Phone | + [...] of this encounter Progress Notes Interface, Shop Tailor In - 08/13/2006 3:11 AM PSTCLINIC DATE: 11/25/1998 ADULT UROLOGY CLINIC HISTORY OF PRESENT ILLNESS: The patient is a 45-year-old female who is referred from her family practitioner, Dany Orozco M.D., in [facility] for chronic pyelonephritis. The patient notes that [...] pain, she contacts her family practitioner in [place], who then treats her with a 10-day course of antibiotics. The symptoms always resolve after the course of antibiotics, but then recur. The patient had a hysterectomy three years ago, and since the hysterectomy, the left-sided kidney infections have increased in frequency to three to four times per year. In July of 1998, the patient presented to an emergency room in [place] with excruciating left-sided flank pain and was found to have a white blood cell count of 23,000 and a temperature of 101F. She was hospitalized and treated for pyelonephritis for five days. After discharge from this hospital in [place], the patient received a Urology consult. A [...] night. SOCIAL HISTORY: The patient lives in [facility]. She is a single mother with four children, ranging in age from 10 to 18. 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 FAMILY HISTORY: There [...]
--- OUTSIDE RECORDS SUMMARY | ~2019-12-12 | XMS | Encounter Summary ---
Demographics + + + | Address | [address] | | | [place] [address] | + + + | Home Phone | | + + + | Preferred Language | Unknown | + + + | Marital Status | Single | + + + | Restorationist Affiliation | Unknown | + + + [...] [place] | | | | | [address] | | + + + + + Care Team Providers + +------+ + | Care Drift Miner Name | Role | Phone | + [...] as of this encounter Progress Notes Interface, Manager Language In - 08/13/2006 3:[address] [facility] [place] [address] [place], [place] [address] or December 03, 1998 ARLENE WEST MD [address] [place] [address] [place] [address] RE:MAGI GÓMEZ MR#:[id number] West: Mrs. Gómez was seen in the Urology Clinic last week for her problem of chronic and recurring right flank pain and pyelonephritis. As you know, she was worked up by Dr. 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 Sincerely, Keshav Prado M.D. DILIP/cornelia [id number] signed by Interface, Manager Language In at 08/13/2006 3:11 AM PSTdocume nted in this encounter Plan of Treatment Not on filedocumented as of this encounter Visit Diagnoses Not on filedocumented in this encounter"
--- OUTSIDE RECORDS SUMMARY | ~2019-12-12 | XMS | Encounter Summary ---
Demographics + + + | Address | [address] | | | [place] [address] | + + + | Home Phone | | + + + | Preferred Language | Unknown | + + + | Marital Status | | + + + | Adventism Affiliation | 1073 | + + + | Race | Unknown | + + + | Ethnic Group | Unknown | + + + Author + + + | Author | [facility] | | | and [place] | + + + | Organization | [facility] | | | and [place] [...] Team Providers + +------+ + | Care Record Changer Tester Name | Role | Phone | + +------+ + PCP | Unavailable | + +------+ + Encounter Details +--------+ + + + + | Date | Type | Department | Care Team | Description | +--------+ + + + + | 08/18/ | Hospital | [facility] | Conversion | Neck pain | | 2013 | Encounter | CONVERSION DEP [address] | Transaction, | | | | | DERRICK RIZZO | Provider Unknown | | | | | [place] | | | | | | [address] | | | | | | [phone] | | | +--------+ + + + [...]
[~2019-12-12 20:10] MED LIST changes: +CRUTCH1 EACH MISC
--- OUTSIDE RECORDS SUMMARY | 2019-12-12 20:12 | XMS ---
PreManage Notification: BRIDGER MENA Security Communications Instructor Events No recent Security Events currently on file CRITERIA MET - [facility] CARE PROVIDERS There are no care providers on record at this time. Ernst has no Care Guidelines for this patient. Ebonie VISIT COUNT (12 MO.) 2 [facility] Cobian TOTAL 2 NOTE: Visits indicate total known visits. ED/UCC VISIT TRACKING (12 MO.) 12/12/2019 20:11 [facility] [place] TYPE: Emergency COMPLAINT: - FLU SYMPTOMS 03/26/2019 18:[address] [facility] [place] TYPE: Emergency COMPLAINT: - RT KNEE PAIN,INJURY DIAGNOSES: - Pain in right knee - Essential (primary) hypertension - Other care home (current) drug therapy - Nicotine dependence, unspecified, uncomplicated - Pure hypercholesterolemia, unspecified - Allergy status to other drugs, medicaments and biological sub - Major depressive disorder, single episode, unspecified - Other and unspecified overexertion or strenuous movements or - Sprain of unspecified site of right knee, initial encounter - Allergy status to sulfonamides status INPATIENT VISIT TRACKING (12 MO.) No inpatient visits to display in this time frame [email or web address]
== END 2019-12-12 23:19 | disposition home or self-care (01) ==
LOC: ED 20:10
DX: B34.9 Viral infection, unspecified (principal); I10 Essential (primary) hypertension; E78.00 Pure hypercholesterolemia, unspecified; F32.9 Major depressive disorder, single episode, unspecified; F41.9 Anxiety disorder, unspecified; F17.200 Nicotine dependence, unspecified, uncomplicated; Z88.2 Allergy status to sulfonamides; Z88.8 Allergy status to other drugs, medicaments and biological substances; Z79.899 Other long term (current) drug therapy
CPT/HCPCS: 71045; 80053; 85025; 85610; 85730; 96361; 96374; 99284-25; J2405; J7030

== ENCOUNTER → 2020-05-14 | Emergency (ER) | payer OTHER ==
[~2020-05-14] VITALS: Ht 162.6 cm; Wt 75.3 kg
[~2020-05-14] MED LIST changes: +K-TAB ER20 MEQ PO
--- OUTSIDE RECORDS SUMMARY | ~2020-05-14 | XMS | Encounter Summary ---
Demographics + + + | Address | [address] | | | [place] [address] | + + + | Home Phone | | + + + | Preferred Language | Unknown | + + + | Marital Status | | + + + | Scientologist Affiliation | 1013 | + + + | Race | White | + + + | Ethnic Group | Not or | + + + Author + + + | Author | [facility] | | | and [place] | + + + | Organization | [facility] | | | and [...] Team Providers + +------+ + | Care Medical Staff Manager Name | Role | Phone | + +------+ + | Karla Payan PA-C | PCP | | + +------+ + Reason for Visit +--------+--------+ + | Reason | Onset | Comments | | | Date | | +--------+--------+ + | Other | 05/03/ | | | | 2020 | | +--------+--------+ + Encounter Details +--------+ + + + + | Date | Type | Department | Care Team | Description | +--------+ + + + + | 05/03/ | Telephone | [facility] | Melecio Galo Berto, | Other | | 2020 | | GASTROENTEROLOGY | SENIOR CARE ASSISTANT [address] | | | | | [address] | [address] [place] | | | | | [address] [place], [place] | [place] [address] | | | | | [address] | [phone] | | | | | [phone] | | | +--------+ + + + [...] Miscellaneous Notes Telephone Encounter - Soha Topete Labor Service Representative - 05/03/2020 4:22 PM PDTCyrus okay for patient to take Zofran every 8 hrs as needed. Patient notified. elephone Encounter - Chay Perez - 05/03/2020 2:18 PM PDTPatient called in saying that after [facility]us prescribed anti0-b iotic that she has had severe stomach pain and nausea. She said that she went to go see her PCP and they are wanting to prescribe her Zofran, but they want Galo's permission to prescr varghese that. Her PCP is Karla Payan at [phone] signed by Mildred Perez at 05/03/2020 2:20 PM PDTdocumented in this encounter Plan of Treatment +--------+---------+ + + + | Date | Type | Specialty | Care Team | Description | +--------+---------+ + + + | 07/01/ | Office | Gastroenterology | Galo Majano, | | 2019 | Visit | | SENIOR CARE ASSISTANT [address] | | | | | | [place] | | | | | | [place] [address] | | | | | | [phone] | | | | | | | | +--------+---------+ + + + documented as of this encounter Visit Diagnoses Not on filedocumented in this encounter"
--- OUTSIDE RECORDS SUMMARY | ~2020-05-14 | XMS | Encounter Summary ---
Demographics + + + | Address | [address] | | | [place] [address] | + + + | Home Phone | | + + + | Preferred Language | Unknown | + + + | Marital Status | | + + + | Judaism Affiliation | 1013 | + + + | Race | White | + + + | Ethnic Group | Not or | + + + Author + + + | Author | [facility] | | | and [place] | + + + | Organization | [facility] | | | and [place] | + + + | Address | Unknown | + + + | Phone | Unavailable | + + + Support + + +---------+ + | Name | Relationship | Address | Phone | + + +---------+ + | Arue Ascencio | ECON | Unknown | | + + +---------+ + Care Team Providers + +------+ + | Care Strap Cutting Machine Operator Name | Role | Phone | [...] | [address] | MD [address] | arthritis of right | | | | [address] [place], [place] | [address] [place], [place] | knee (Primary Dx); | | | | [phone] | [address] | Acute medial | | | | [phone] | | meniscus tear of | | [...] m the original. RICO SPARKS : 1955 [facility] MR#: [id number] [facility] MR#: February 13, 2019 History of Present [...] document has been authenticated but not proofread [id number] signed by Lauri Malave MD at 04/01/2019 3:06 PM P Lauri Vences MD - 02/13/2019 8:00 AM PDTThis note has been dictated. Lauri May MD - 02/13/2019 7:57 AM PDT RICO SPARKS : 1955 [facility] MR#: [id number] [facility] MR#: February 13, 2019 History of Present [...] document has been authenticated but not proofread [id number] signed by Lauri Malave MD at 02/13/2019 10:11 AM P DTdocumented in this encounter Plan of Treatment +--------+---------+ + + + | Date | Type | Specialty | Care Team | Description | +--------+---------+ + + + | 07/01/ | Office | Gastroenterology | Galo Majano, | | | 2019 | Visit | | [employer] [address] | | | | | | [facility] | | | | | | [place] [address] | | | | | | [phone] | | | | | | | [...] PDT | | | | | ONCE, [facility] 02/13/19 at 0815, For 1 | | | | | | | dose, Shake well. Not for IV | | | | | | | use., | | | | | | + +--------+ +-------+------+------+ +---+---+ | | | +---+---+ documented in this encounter"
--- OUTSIDE RECORDS SUMMARY | ~2020-05-14 | XMS | Encounter Summary ---
Demographics + + + | Address | [address] | | | [place] [address] | + + + | Home Phone | | + + + | Preferred Language | Unknown | + + + | Marital Status | | + + + | Quaker Affiliation | 1013 | + + + | Race | White | + + + | Ethnic Group | Not or | + + + Author + + + | Author | [facility] | | | and [place] | + + + | Organization | [facility] | | [...] Team Providers + +------+ + | Care Glass Cutter Helper Name | Role | Phone | + +------+ + | Karla Payan PA-C | PCP | | + +------+ + Reason for Visit + + + | Reason | Comments | + + + | Follow-up | bowel incontinence | + + + | Diarrhea | | + + + Evaluate & Treat (Routine) + +--------+ + + + + | Status | Reason | Specialty | Diagnoses / | Referred By | Referred To | | | | | Procedures | Contact | Contact | + +--------+ + + + + | Pending | | Gastroenterol | Diagnoses | [place], | [facility] | | Review | | ogy | Encopresis | [address] | Gastroenterol | | | | | not due to a | [place] | ogy [address] | | | | | substance | [place], | [address] | | | | | or known | [place] [address] | [address] [place] | | | | | physiologica | | [place], [place] | | | | | l condition | | [address] | | | | | Procedures | | Phone: | | | | | [facility] | | [phone] | | | | | VISIT | | Fax: | | | | | | | [phone] | + +--------+ + + + + Encounter Details +--------+---------+ + + + | Date | Type | Department | Care Team | Description | +--------+---------+ + + + | 04/28/ | Office | [facility] | Galo Majano, | Helicobacter pylori | | 2020 | Visit | GASTROENTEROLOGY | OXYGEN EQUIPMENT AIDE [address] | infection (Primary | | | | [address] | [address] [place] | Dx); | | | | [address] [place], [place] | [place] [address] | Gastroesophageal | | | | [address] | [phone] | reflux disease with | | | | [phone] | | esophagitis; | | | | | | Duodenitis | | | | | | determined by | | | | | | biopsy; Diarrhea, | | | | | | unspecified type; | | | | | | LFTs abnormal | +--------+---------+ + + + Social History [...] + + documented as of this encounter Last Filed Vital Signs + + + + + | Vital Sign | Reading | Time Taken | Comments | + + + + + | Blood Pressure | 140/78 | 04/28/2020 11:43 AM | | | | | PDT | | + + + + + | Pulse | 67 | 04/28/2020 11:43 AM | | | | | PDT | | + + + + + | Temperature | 36.6 C (97.8 F) | 04/28/2020 11:43 AM | | | | | PDT | | + + + + + | Respiratory Rate | 18 | 04/28/2020 11:43 AM | | | | | PDT | | + + + + + | Oxygen Saturation | 97% | 04/28/2020 11:43 AM | | | | | PDT | | + + + + + | Inhaled Oxygen | - | - | | | Concentration | | | | + + + + + | Weight | 74.4 kg (164 lb 0.4 | 04/28/2020 11:43 AM | | | | oz) | PDT | | + + + + + | Height | 161.3 cm (5' 3.5") | 04/28/2020 11:43 AM | | | | | PDT | | + + + + + | Body Mass Index | 28.6 | 04/28/2020 11:43 AM | | | | | PDT | | + + + + + documented in this encounter Progress Notes Galo Majano ARNP - 04/28/2020 11:30 AM PDT Gastroenterology Clinic Progress Note Date of Office Visit: 04/28/20 Primary Care Physician: Karla Payan PA-C Chief Complaint Follow-up (bowel incontinence ) and Diarrhea History of Present Illness Magi Gómez is a 65 y.o. female following up for chronic idiopathic diarrhea in which col onoscopy was completed without remarkable finding explained the etiology of the diarrhea. S he recently completed a EGD without remarkable finding subsequent pathology report revealed Helicobacter pylori infection. She denies nausea, vomiting, abdominal pain but continues virgen ving bouts of diarrhea. Imodium seemed to control the symptom better than colestipol. She denies having bloody stools. Lab work that was completed indicates she may have some gluten sensitivity. She has not tried gluten-free diet. Reports stool studies from approximately 4 months ago which were negative. Interval history: 02/2020 colonoscopy with findings of diverticulosis, internal hemorrhoids and negative patho logy on biopsy. 04/22 EGD Impression: - Normal upper third of esophagus, middle third of esophagus and lower third of esophagus. - Z-line regular, 39 cm from the incisors. - Erythematous mucosa in the stomach. Biopsied. - Duodenitis. Biopsied. Appearance is more suspicious for peptic duodenitis than Celiac disease FINAL PATHOLOGIC DIAGNOSIS: A. Gastric biopsy: - Diffuse superficial acute and chronic gastritis. - A Helicobacter immunostain is positive for organisms. B. Duodenal biopsy: - Benign duodenal mucosa, negative for specific diagnostic abnormality. Review of Systems A 10 point review of systems was conducted with the patient, pertinent positives and negati ves per HPI. 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 Diarrhea, unspecified type LFT elevation HTN (hypertension) SHIRIN/ARB Inhibitors - Daily Use GERD (gastroesophageal reflux disease) Beta Blockers - Daily Use Diverticulosis Past Medical History Past Medical History: Diagnosis Date Abnormal levels of other serum enzymes Abnormal Hepatic Enzyme Actinic keratosis Adverse drug effect of Hmg-coa Ruductase Inhibitiors Angular cheilitis Anserine bursitis Arthralgia of Pelvis/ Hip/ Femur left Arthritis Atherosclerosis of right carotid artery Carbuncle of right axilla Cervical dysplasia Concussion with brief LOC 2017 Depression with anxiety Diverticulitis Dry eye syndrome, bilateral Encopresis not due to a substance or known physiological condition Exposure to Contagious Viral Disease Fatigue Gastric ulcer Three superficial antral gastric ulcers. History of blood transfusion 1955 HTN (hypertension) Hyperlipidemia Hypokalemia Impaired fasting glucose Internal hemorrhoids Internal hemorrhoids Left sided abdominal pain Loose stools Melena Mild distal gastritis Mucoid diarrhea Myopathies Postcholecystectomy syndrome Reaction to chronic stress Rectal bleeding Right knee sprain SCC (squamous cell carcinoma), arm, right Sigmoid diverticulosis Skin Neoplasm squamous cell carcinoma of arm Thromboangiitis obliterans (Buerger's disease) (HCC) Considered Trochanteric bursitis, right Vasculitis limited to skin Viral syndrome Past Surgical History Past Surgical History: Procedure Laterality Date APPENDECTOMY SECTION 1982 CHOLECYSTECTOMY 1974 COLON SURGERY Reconstruction CYST REMOVAL 3 times EGD AND COLONOSCOPY 2012 PROCEDURE PO DX: Mild Distal gastritis, 3 superficial antral gastric ulcers, minimal sigmo id diverticulosis, minimal internal hemorrhoids. ~Александр Chavez M.D. [facility] ELBOW SURGERY Left FINGER TRIGGER RELEASE 2011 Dr. Martell HYSTERECTOMY Bilateral Hysterectomy with bladder sling, bowel reconstruction about 11 years ago, bilateral ovarie s removed. INCONTINENCE SURGERY KIDNEY SURGERY 1998 Removal of 3rd kidney SHOULDER SURGERY Right 05/2016 Dr. Pantoja SKIN EXCISION 2018 TONSILLECTOMY AND ADENOIDECTOMY 1963 TUBAL LIGATION UPPER GASTROINTESTINAL ENDOSCOPY N/A 04/22/2020 Procedure: EGD; Surgeon: Chele Wilson MD; Location: [facility] Allergies Allergies Allergen Reactions Sulfa Antibiotics Hives,Rash Intolerance Allergen Reactions Glucophage (Metformin) Diarrhea,Nausea And Vomiting,Other (See Comments) Reaction: Nausea, vomiting, diarrhea , urinary retention, edema Lipitor (Atorvastatin) Nausea And Vomiting Lisinopril Diarrhea,Nausea And Vomiting Tape (Adhesive & Tape) Other (See Comments) "Skin comes off with the adhesive on band aids" Medications Current Outpatient Medications on File Prior to Visit Medication Sig Dispense Refill atenolol (TENORMIN) 100 MG tablet Take 100 mg by mouth Daily. B Complex Vitamins (B COMPLEX PO) Take 1 tablet by mouth Daily. baclofen (LIORESAL) 10 mg tablet Take 10 mg by mouth 3 times daily. buPROPion (WELLBUTRIN SR) 150 mg 12 hr tablet Take 150 mg by mouth 2 times daily. ZTDDIAS-VJVHYFQFTF-EURM 333-133-8.3 MG TABS Take by mouth. cholecalciferol (VITAMIN D-3) 25 mcg (1,000 units) tablet Take 25 mcg by mouth Daily. clindamycin (CLEOCIN T) 1% external solution apply topically to affected area twice a d ay doxycycline (MONODOX) 100 mg capsule Take 100 mg by mouth 2 times daily. Ferrous Sulfate (IRON PO) Take 1 tablet by mouth Daily. fluticasone (FLONASE) 50 mcg/nasal spray 1 spray by Nasal route Daily. hydroCHLOROthiazide 25 mg tablet Take 25 mg by mouth Daily. Loperamide HCl (IMODIUM PO) Take by mouth. loratadine (CLARITIN) 10 mg tablet Take 10 mg by mouth Daily. losartan (COZAAR) 100 MG tablet Take 100 mg by mouth Daily. nicotine (NICODERM) 7 mg/24 hr apply 1 patch topically once daily as directed [place]-3 Fatty Acids (FISH OIL PO) Take 1 tablet by mouth Daily. omeprazole (PRILOSEC) 20 mg capsule Take 20 mg by mouth every morning (before breakfast ). pravastatin (PRAVACHOL) 40 MG tablet Take 40 mg by mouth nightly. Probiotic Product (TRIPLE PROBIOTIC PO) Take 1 tablet by mouth Daily. TGT PSYLLIUM FIBER PO Take 3 tablets by mouth Daily. No current facility-administered medications on file prior to visit. Physical Exam Vitals:There were no vitals taken for this visit. General: This is a well-developed,well-nurished female in no apparent distress, alert and o riented x 3. Head: Reveals normocephalic, atraumatic Eyes: Sclera anicteric, normal conjunctiva Neuro: Awake, alert, oriented x3. Grossly intact. Non-focal. Skin: Warm and dry, no erythematous rash. Labs 04/21/2020 Lab Results Component Value Date AGRATIO 1.2 01/05/2020 ALKPHOS 166 (A) 12/22/2019 Lab Results Component Value Date MCH 31.0 12/12/2019 MCHC 34.0 12/12/2019 BASOPCT 1.7 12/12/2019 No results found for: IRON, TIBC, FERRITIN No results found for: INR, PROTIME No results found for: CRP No results found for: OCCULTBLD Lab Results Component Value Date ALKPHOS 166 (A) 12/22/2019 No results found for: AMYLASE No results found for: LIPASE No results found for: CHOL No results found for: HDL No results found for: LDL No results found for: LDLDIRECT No results found for: TRIG No results found for: CHOLHDL Computed MELD-Na score unavailable. Necessary lab results were not found in the last year. Computed MELD score unavailable. Necessary lab results were not found in the last year. Imaging None for this encounter Assessment and Plan This is a 65 y.o. female ? Chronic idiopathic diarrhea ? Peptic duodenitis ? H. pylori infection ? Mild transaminitis o Quadruple therapy for H. pylori infection. Metronidazole 500 mg twice a day for 14 days. Omeprazole 20 mg twice daily for 14 days. Bismuth 520 mg 4 times a day. Tetracycline 500 mg 4 times a day for 14 days. o Stop taking doxycycline while she on medication for H. pylori infection. o On completion of triple therapy of H. pylori infection patient will resume doxycycline. o Daily probiotics, fermented foods encouraged. o After completion of therapy she will stop taking the PPIs [omeprazole] for 4 weeks then r epeat H. pylori breath test. o Gluten free diet-she may have gluten sensitivity. Hand out provided o If she starts having diarrhea she will continue with loperamide, will take a maximum of 3 tablets/day. o Avoid hepatotoxic drugs o Repeat hepatic function panel the next 3 to 6 months if still elevated she will need a co mplete liver work-up to rule out overlapping hepatic syndromes and hepatitis.. o Notify GI if the symptom gets worse. o 8-week follow-up. Spent 25 minutes with over half of the time spent in discussion with the patient regarding diagnostics and possible treatment options. Signed by STEPHON Ramirez Date:04/28/2020 Patient Name: Magi Gómez : 1955 Portions of this chart may have been created with [employer] voice recognition software. Occasi onal wrong-word or sound-alike substitutions may have occurred due to the inherent sears itations of voice recognition software. Please read the chart carefully and recognize, using context, where these substitutions have occurred documented in this encounter Plan of Treatment +--------+---------+ + + + | Date | Type | Specialty | Care Team | Description | +--------+---------+ + + + | 07/01/ | Office | Gastroenterology | Galo Majano, | | 2019 | Visit | | OXYGEN EQUIPMENT AIDE [address] | | | | | | [place] | | | | | | [place] [address] | | | | | | [phone] | | | | | | | | +--------+---------+ + + + + + +--------+ + + | Name | Type | Priori | Associated Diagnoses | Order Schedule | | | | ty | | | + + +--------+ + + | H Pylori Breath Test | Procedures | Routin | Helicobacter | Expected: | | | | e | pylori infection | 06/11/2020, Expires: | | | | | Duodenitis | 04/28/2021 | | | | | determined by biopsy | | | | | | Diarrhea, | | | | | | unspecified type | | + + +--------+ + + | Clostridioides | Microbiolog | Routin | Helicobacter | 1 Occurrences | | difficle NAAT reflex | y | e | pylori infection | starting 04/28/2020 | | to Tox Ag | | | Duodenitis | until 04/28/2021 | | | | | determined by biopsy | | | | | | Diarrhea, | | | | | | unspecified type | | + + +--------+ + + | Culture, Stool | Microbiolog | Routin | Helicobacter | Expected: | | | y | e | pylori infection | 04/28/2020, Expires: | | | | | Duodenitis | 08/26/2020 | | | | | determined by biopsy | | | | | | Diarrhea, | | | | | | unspecified type | | + + +--------+ + + | Ova and Parasite | Microbiolog | Routin | Helicobacter | Expected: | | Examination | y | e | pylori infection | 04/28/2020, Expires: | | | | | Duodenitis | 08/26/2020 | | | | | determined by biopsy | | | | | | Diarrhea, | | | | | | unspecified type | | + + +--------+ + + | Giardia Ag, EIA, | Microbiolog | Routin | Helicobacter | Expected: | | Stool | y | e | pylori infection | 04/28/2020, Expires: | | | | | Duodenitis | 08/26/2020 | | | | | determined by biopsy | | | | | | Diarrhea, | | | | | | unspecified type | | + + +--------+ + + documented as of this encounter Visit Diagnoses + + | Diagnosis | + + | Helicobacter pylori infection - Primary Helicobacter pylori (H. pylori) | + + | Gastroesophageal reflux disease with esophagitis | + + | Duodenitis determined by biopsy | + + | Diarrhea, unspecified type | + + | LFTs abnormal Other abnormal blood chemistry | + + documented in this encounter
--- OUTSIDE RECORDS SUMMARY | ~2020-05-14 | XMS | Encounter Summary ---
Demographics + + + | Address | [address] | | | [place] [address] | + + + | Home Phone | | + + + | Preferred Language | Unknown | + + + | Marital Status | | + + + | Religion Affiliation | 1013 | + + + | Race | White | + + + | Ethnic Group | Not or | + + + Author + + + | Author | [facility] | | | and [place] | + + + | Organization | [facility] | | | [...] Team Providers + +------+ + | Care Lumber Bearer Name | Role | Phone | + +------+ + | Karla Payan PA-C | PCP | | + +------+ + Reason for Visit + +--------+ + | Reason | Onset | Comments | | | Date | | + +--------+ + | Diarrhea | 04/19/ | extremely loose stools with change in medication | | | 2019 | | + +--------+ + Encounter Details +--------+ + + + + | Date | Type | Department | Care Team | Description | +--------+ + + + + | 04/19/ | Telephone | [facility] | Gaol Majano, | Diarrhea (extremely | | 2019 | | GASTROENTEROLOGY | MAINTENANCE SUPERINTENDENT [address] | loose stools with | | | | [address] | [address] [place] | change in | | | | [address] [place], [place] | [place] [address] | medication) | | | | [address] | [phone] | | | | | [phone] | | | +--------+ + + + [...] beer, | | | | | whiskey 3/mo | + + +---------+ + + + + | Sex Assigned at | Date Recorded | | | | + + + | Female | 03/31/2020 1:19 PM PDT | + + + documented as of this encounter Miscellaneous Notes Telephone Encounter - Galo Majano ARNP - 04/20/2020 5:11 PM PDTI called patient with regards to loose stools. I recommended taking Imodium 2 mg on the first incident of loose stools, she can repeat this to maximum of 3 to 4 pills. If this works for her she will con tinue taking Imodium 1 tablet/day or titrate to effect. elephone Encounter - Malgorzata Funk RN - 2019 10:49 AM PDTPatient called in; she stated that she has tried the Questran and her stool s are like pancake batter; she stated that at least with colestipol there was soft form stoo ls at 6x a day. Still has colestipol on hand; scheduled for EGD on 04/[address] Johnson. Advised I would route back to Galo to see if he would recommend she go back on the Col estipol pending her procedure outcome as this provided her more consistent stools than Quest ran. She verbalized understanding.Electronically signed by Malgorzata Funk RN at 04/19 10:55 AM PDTdocumented in this encounter Plan of Treatment +--------+---------+ + + + | Date | Type | Specialty | Care Team | Description | +--------+---------+ + + + | 07/01/ | Office | Gastroenterology | Galo Majano, | | | 2019 | Visit | | MAINTENANCE SUPERINTENDENT [address] | | | | | | [facility] [address] [place] | | | | | | [place] [address] | | | | | | [phone] | | | | | | | | +--------+---------+ + + + documented as of this encounter Visit Diagnoses Not on filedocumented in this encounter"
--- OUTSIDE RECORDS SUMMARY | ~2020-05-14 | XMS | Encounter Summary ---
Demographics + + + | Address | [address] | | | [place] [address] | + + + | Home Phone | | + + + | Preferred Language | Unknown | + + + | Marital Status | Single | + + + | Jainism Affiliation | Unknown | + + + | Race | White | + + + | Ethnic Group | Not or | + + + Author + + + | Author | [facility] | + + + | Organization | [facility] | + + + | Address | Unknown | + + + | Phone | Unavailable | + + + Support + + + + + | Name | Relationship | Address | Phone | + + + + + | Kaila Ascencio | JOEY | [place] | | | | | [address] | | + + + + + Care Team Providers + +------+ + | Care Design Tech Name | Role | Phone | + [...] as of this encounter Progress Notes Interface, Sleeve Separator In - 08/13/2006 3:11 AM PSTCLINIC DATE: 11/25/1998 ADULT UROLOGY CLINIC HISTORY OF PRESENT ILLNESS: The patient is a 45-year-old female who is referred from her family practitioner, Dany Orozco M.D., in [facility] for chronic pyelonephritis. The patient notes that [...] pain, she contacts her family practitioner in [place], who then treats her with a 10-day course of antibiotics. The symptoms always resolve after the course of antibiotics, but then recur. The patient had a hysterectomy three years ago, and since the hysterectomy, the left-sided kidney infections have increased in frequency to three to four times per year. In July of 1998, the patient presented to an emergency room in [place] with excruciating left-sided flank pain and was found to have a white blood cell count of 23,000 and a temperature of 101F. She was hospitalized and treated for pyelonephritis for five days. After discharge from this hospital in [place], the patient received a Urology consult. A [...] night. SOCIAL HISTORY: The patient lives in [facility]. She is a single mother with four children, ranging in age from 10 to 18. 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 FAMILY HISTORY: There [...] upper pole nephrectomy for sometime during the summer. 2. The patient was advised to continue [...]
--- OUTSIDE RECORDS SUMMARY | ~2020-05-14 | XMS | Encounter Summary ---
Demographics + + + | Address | [address] | | | [place] [address] | + + + | Home Phone | | + + + | Preferred Language | Unknown | + + + | Marital Status | Single | + + + | Taoism Affiliation | Unknown | + + + | Race | White | + + + | Ethnic Group | Not or | + + + Author + + + | Author | [facility] | + + + | Organization | [facility] | + + + | Address | Unknown | + + + | Phone | Unavailable | + + + Support + + + + + | Name | Relationship | Address | Phone | + + + + + | Kaila Ascencio | JOEY | [place] | | | | | [address] | | + + + + + Care Team Providers + +------+ + | Care Airline Manager Name | Role | Phone | + +------+ + PCP | Unavailable | + +------+ + Encounter Details +--------+ + + + + | Date | Type | Department | Care Team | Description | +--------+ + + + + | 01/10/ | Results | Registration [id number] | | | | 1998 | Only | [address] | | | | | | Kevin Mailcode: [id number] | | | | | | [place], [place] | | | | | | [address] | | | | | | [phone] | | | +--------+ + + + [...] | + +--------+ + + + | CBC TESTS 2 | Routin | 01/12/1999 | | Results for this | | | e | 6:22 AM | | procedure are in the | | | | PDT | | results section. | + +--------+ + + + | CHEMISTRY TESTS 4 | Routin | 01/10/1999 | | Results for this | | | e | 11:15 AM | | procedure are in the | | | | PDT | | results section. | + +--------+ + + + | CBC TESTS 2 | Routin | 01/10/1999 | | Results for this | | | e | 11:15 AM | | procedure are in the | | | | PDT | | results section. | + +--------+ + + + documented in this encounter Results CBC TESTS 2 (01/12/1999 6:22 AM PDT) + + + + + + | Component | Value | Ref Range | Performed | Pathologist | | | | | At | Signature | + + + + + + | HEMATOCRIT | 30.9 (L) | % | | | + + + + + + + + | Specimen | + + | | + + + + + + + | Performing | Address | City/State/Zipcode | Phone Number | | Organization | | | | + + + + + | [facility] | [address] | [place] [address] | | | PATHOLOGY | [address] | | | + + + + + CBC TESTS 2 (01/10/1999 11:15 AM PDT) + + + + + + | Component | Value | Ref Range | Performed | Pathologist | | | | | At | Signature | + + + + + + | WHITE CELL | 9.4 | K/CU MM | | | | COUNT | | | | | + + + + + + | RED CELL | 4.06 | M/CU MM | | | | COUNT | | | | | + + + + + + | HEMOGLOBIN | 12.7 | GM/DL | | | + + + + + + | HEMATOCRIT | 36.3 (L) | % | | | + + + + + + | MCV | 89.4 | FL | | | + + + + + + | MCH | 31.4 | PG | | | + + + + + + | MCHC | 35.1 (H) | GM/DL | | | + + + + + + | RDW | 12.3 | % | | | + + + + + + | PLATELET | 320. | K/CU MM | | | | COUNT | | | | | + + + + + + | MPV | 8.5 | [place] | | | + + + + + + + + | Specimen | + + | | + + + + + + + | Performing | Address | City/State/Zipcode | Phone Number | | Organization | | | | + + + + + | [facility] | [address] | [place] [address] | | | PATHOLOGY | [address] | | | + + + + + CHEMISTRY TESTS 4 (01/10/1999 11:15 AM PDT) + + + + + + | Component | Value | Ref Range | Performed | Pathologist | | | | | At | Signature | + + + + + + | SODIUM, | 140. | mmol/l | | | | PLASMA | | | | | | (LAB) | | | | | + + + + + + | POTASSIUM, | 3.6 | mmol/l | | | | PLASMA | | | | | | (LAB) | | | | | + + + + + + | CHLORIDE, | 114. (H) | mmol/l | | | | PLASMA | | | | | | (LAB) | | | | | + + + + + + | TOTAL CO2, | 24. | mmol/l | | | | PLASMA | | | | | | (LAB) | | | | | + + + + + + | BUN, PLASMA | 13. | mg/dL | | | | (LAB) | | | | | + + + + + + | CREATININE | 0.7 | mg/dL | | | | PLASMA | | | | | | (LAB) | | | | | + + + + + + | GLUCOSE, | 92. | mg/dL | | | | PLASMA | | | | | | (LAB) | | | | | + + + + + + + + | Specimen | + + | | + + + + + + + | Performing | Address | City/State/Zipcode | Phone Number | | Organization | | | | + + + + + | [facility] | [address] | [place] [address] | | | PATHOLOGY | [address] | | | + + + + + documented in this encounter Visit Diagnoses Not on filedocumented in this encounter"
--- OUTSIDE RECORDS SUMMARY | ~2020-05-14 | XMS | Encounter Summary ---
Demographics + + + | Address | [address] | | | [place] [address] | + + + | Home Phone | | + + + | Preferred Language | Unknown | + + + | Marital Status | Single | + + + | Islam Affiliation | Unknown | + + + [...] [place] | | | | | [address] | | + + + + + Care Team Providers + +------+ + | Care Sales Strategy Manager Name | Role | Phone | [...] as of this encounter Progress Notes Interface, Multimedia Teacher In - 08/13/2006 3:11 AM [facility] OR [address] [address] or November 25, 1998 DON SOLITARIO DO [address] [place] [address] RE: Magi Gómez MR#: [id number] [...] [address], [address] [place] [id number] signed by Interface, Multimedia Teacher In at 08/13/2006 3:11 AM PSTdocumented in this encounter Plan of Treatment Not on filedocumented as of this encounter Visit Diagnoses Not on filedocumented in this encounter"
--- OUTSIDE RECORDS SUMMARY | ~2020-05-14 | XMS | Encounter Summary ---
Demographics + + + | Address | [address] | | | [place] [address] | + + + | Home Phone [...] [place] | | | | | [address] | | + + + + + Care Team Providers + +------+ + | Care Front Office Secretary Name | Role | Phone | + +------+ + PCP | Unavailable | + +------+ + Encounter Details +--------+ + + + + | Date | Type | Department | Care Team | Description | +--------+ + + + + | 12/03/ | Transcribed | | Dictation, Other | [...] as of this encounter Progress Notes Interface, Pricing Intern In - 08/13/2006 3:11 AM [facility] OR [address] [address] or December 03, 1998 ARLENE WEST MD [address] [place] [address] [place] [address] RE:MAGI GÓMEZ MR#:[id number] West: Mrs. Gómez was seen in the Urology Clinic last week for her problem of chronic and recurring right flank pain and pyelonephritis. As you know, she was worked up by Dr. 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 The ureterocele is the cause of the obstruction. She has had multiple urinary tract infections and, recently, an episode of severe pyelonephritis. She has a more than 20-year history of recurring right flank pain. There is little doubt that her duplicated system with the upper pole obstruction is the cause of her recurring symptoms. I have recommended that she have this segment of kidney removed as well as as much of the ureter as can be removed through a single incision. I believe this will relieve her symptoms and stop her episodes of pyelonephritis. It is important to understand that it may not stop her bladder infections, which could be related to something entirely different. In any event, she will be letting us know when she can arrange the time from her family and from her work to have this surgery done. We will be sure to keep you informed of her progress. Thank you for the kind referral allowing me to participate in this woman's care. Enclosed is a copy of her Urology Clinic note from November 25, 1998. Do not hesitate to call if you have any questions or concerns. Sincerely, Keshav Prado M.D. DILIP/cornelia [id number] signed by Interface, Pricing Intern In at 08/13/2006 3:11 AM PSTdocume nted in this encounter Plan of Treatment Not on filedocumented as of this encounter Visit Diagnoses Not on filedocumented in this encounter"
--- OUTSIDE RECORDS SUMMARY | ~2020-05-14 | XMS | Encounter Summary ---
Demographics + + + | Address | [address] | | | [place] [address] | + + + | Home Phone | | + + + | Preferred Language | Unknown | + + + | Marital Status | Single | + + + | Baptism Affiliation | Unknown | + + + [...] [place] | | | | | [address] | | + + + + + Care Team Providers + +------+ + | Care Sales Planning Coordinator Name | Role | Phone | + +------+ + PCP | Unavailable | + +------+ + Encounter Details +--------+ + + + + | Date | Type | Department | Care Team | Description | +--------+ + + + + | 01/10/ | Procedure - | | Record, Operation | Operative Report | | 1998 | | | | | | | Transcribed | | | | +--------+ + + [...] + + documented as of this encounter Procedure Notes Interface, Technical Testing Engineer In - 08/10/2006 5:[address] [address] [facility] OPERATION RECORD Med Rec No.: [id number] Date: 01/10/1999 Name: Magi Gómez ATTENDING SURGEON:Keshav Prado M.D. ASSISTANTS: Bridger Gonzalez M.D. PREOPERATIVE DIAGNOSIS(ES): Chronic pyelonephritis with nonfunctioning left upper pole of the kidney. POSTOPERATIVE DIAGNOSIS(ES): Chronic pyelonephritis with nonfunctioning left upper pole of the kidney. OPERATIONS PERFORMED: Left upper pole nephrectomy. SPECIMEN(S) REMOVED: Upper pole of the left kidney and of the ureter. ESTIMATED BLOOD LOSS: 300 cc. COMPLICATIONS: None. INDICATIONS: Ms. Gómez is a 43-year-old woman who has a history of chronic pyelonephritis for over 25 years. Recent work up with a CT scan, renal scan, and retrograde ureteral pyelograms showed a duplicated system with a nonfunctioning left upper pole. 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 The patient was evaluated in clinic and presents for left upper pole nephrectomy. FINDINGS: The patient had a small atrophic left upper pole. There was a single renal artery and vein supplying this left upper pole. The patient had a severed ureter that was not encased in the sheath surrounding the middle and lower pole ureter. PROCEDURE: After the patient was properly consented and identified, she was taken to the Operating Room where general anesthesia was induced. She was next converted to the left flank position and all pressure points were padded appropriately. Next, she was prepped and draped sterilely and a left flank incision was made over the 11th rib. This was carried down to the subcutaneous tissue using electrocautery. Once we entered the retroperitoneum just over the 11th rib, we swept the peritoneal contents anteriorly and we created a cavity posteriorly under the 11th rib. We took down the diaphragmatic fascia to the left rib in order to create a working space. We next inserted the appropriate retractors and dissected away the retroperitoneal fat in Gerota fascia. We next found the kidney and sharply dissected the capsule of the kidney. Once we had done this, we easily identified the atrophic left upper pole. We continued to dissect the capsule of the left upper pole until we encountered the vessels anteriorly. There was a single artery and a single vein and these were tied with 2-0 silk and ligated. We next used the Bovie to dissect the atrophic upper pole off the remainder of the kidney. Once we had successfully done this, we dissected the ureter down as far as roughly the level of the iliac vessels. At this point, we stopped the dissection and placed a medium clip around the ureter and ligated it. The specimen was then sent off the field to Pathology. We closed the kidney using 0-Chromic bolsters. This was closed using horizontal mattress sutures. We next examined for any bleeding. Having found none, we proceeded to close. A small hole in the peritoneum was closed with a running 3-0 Chromic and the hold in the pleural cavity was closed with a running 3-0 Chromic. Next, the 10th and 11th ribs were approximated with a single 0-Biosyn and the posterior fascia was approximated using a running 0-Biosyn. Next, the anterior fascia was closed with [id number] 0-Maxon. Prior to starting the closure, we placed a #20 Martiniquais red Macias catheter into the pleural cavity through the small hole we created. Once the fascia was closed, we put the patient into Trendelenburg and placed the catheter under water. The patient was then given a deep breath to evacuate all the air from the pleural cavity. The catheter was then removed and the soft tissues easily infiltrated the tract. Last to close was the See fascia with a running 3-0 Chromic and the skin was closed with hernan. A sterile dressing was applied and the patient was taken to the recovery room and awakened in good condition. Dr. Prado was present, scrubbed, and participated in the entire operation. Bridger Gonzalez M.D. Keshav Prado M.D. Resident, Urology Professor, Surgery/Urology CK:x11 #[id number] CC: documente d in this encounter Plan of Treatment Not on filedocumented as of this encounter Procedures + +--------+ + + + | Procedure Name | Priori | Date/Time | Associated Diagnosis | Comments | | | ty | | | | + +--------+ + + + | OPERATION RECORD | | 01/10/1999 | | Results for this | | | | | | procedure are in the | | | | | | results section. | + +--------+ + + + documented in this encounter Results OPERATION RECORD (01/10/1999) + + | Transcriptions | + + | Interface, Technical Testing Engineer In - 08/10/2006 5:08 AM PST | | [address] | | [place], [place] [address] | | [facility]ORDMed Rec No.: | | [id number] Date: 01/10/1999Name: Casey Gómez SURGEON:Keshav Daniels | | Yasmine PradoASSISTANTS: Bridger Gonzalez M.D.PREOPERATIVE | | DIAGNOSIS(ES):Chronic pyelonephritis with nonfunctioning left upper pole of the | | kidney.POSTOPERATIVE DIAGNOSIS(ES):Chronic pyelonephritis with nonfunctioning left upper | | pole of the kidney.OPERATIONS PERFORMED:Left upper pole nephrectomy.SPECIMEN(S) | | REMOVED:Upper pole of the left kidney and of the ureter.ESTIMATED BLOOD LOSS:300 | | cc.COMPLICATIONS:None.INDICATIONS:Ms. Gómez is a 43-year-old woman who has a | | history of chronicpyelonephritis for over 25 years. Recent work up with a CT | | scan, renalscan, and retrograde ureteral pyelograms showed a duplicated system with | | anonfunctioning left upper pole. The left upper ureter ended as aureterocele. | | The patient was evaluated in clinic and presents for leftupper pole | | nephrectomy.FINDINGS:The patient had a small atrophic left upper pole. There was a | | single renalartery and vein supplying this left upper pole. The patient had a | | severedureter that was not encased in the sheath surrounding the middle and lowerpole | | ureter.PROCEDURE:After the patient was properly consented and identified, she was | | taken tothe Operating Room where general anesthesia was induced. She was | | nextconverted to the left flank position and all pressure points were | | paddedappropriately. Next, she was prepped and draped sterilely and a left | | flankincision was made over the 11th rib. This was carried down to | | thesubcutaneous tissue using electrocautery. Once we entered | | theretroperitoneum just over the 11th rib, we swept the peritoneal contentsanteriorly | | and we created a cavity posteriorly under the 11th rib. We tookdown the diaphragmatic | | fascia to the left rib in order to create a workingspace. We next inserted the | | appropriate retractors and dissected away theretroperitoneal fat in Gerota fascia. We | | next found the kidney and sharplydissected the capsule of the kidney. Once we had | | done this, we easilyidentified the atrophic left upper pole. We continued to | | dissect thecapsule of the left upper pole until we encountered the vessels | | anteriorly.There was a single artery and a single vein and these were tied with | | 2-0silk and ligated. We next used the Bovie to dissect the atrophic upperpole off | | the remainder of the kidney. Once we had successfully done this,we dissected the | | ureter down as far as roughly the level of the iliacvessels. At this point, we | | stopped the dissection and placed a medium cliparound the ureter and ligated it. The | | specimen was then sent off the fieldto Pathology. We closed the kidney using | | 0-Chromic bolsters. This wasclosed using horizontal mattress sutures. We next | | examined for anybleeding. Having found none, we proceeded to close. A small hole | | in theperitoneum was closed with a running 3-0 Chromic and the hold in thepleural | | cavity was closed with a running 3-0 Chromic. Next, the 10th nil01xq ribs were | | approximated with a single 0-Biosyn and the posterior fasciawas approximated using a | | running 0-Biosyn. Next, the anterior fascia wasclosed with dwwjyk-kl-ipykj 0-Maxon. | | Prior to starting the closure, weplaced a #20 Martiniquais red Macias catheter into | | the pleural cavity throughthe small hole we created. Once the fascia was closed, we | | put the patientinto Trendelenburg and placed the catheter under water. The patient | | wasthen given a deep breath to evacuate all the air from the pleural cavity.The | | catheter was then removed and the soft tissues easily infiltrated thetract. Last to | | close was the See fascia with a running 3-0 Chromic andthe skin was closed with | | hernan. A sterile dressing was applied and thepatient was taken to the recovery room | | and awakened in good condition.Dr. Prado was present, scrubbed, and participated in the | | entire operation.Bridger Gonzalez M.D. Keshav Prado M.D.Resident, | | Urology Professor, Surgery/UrologyCK:x11D: 01/10/1999T: | | 01/11/1999#[id number]: | |incision was made over the 11th rib. This was carried down to the | |subcutaneous tissue using electrocautery. Once we entered the | |retroperitoneum just over the 11th rib, we swept the peritoneal contents | |anteriorly and we created a cavity posteriorly under the 11th rib. We took | |down the diaphragmatic fascia to the left rib in order to create a working | |space. We next inserted the appropriate retractors and dissected away the | |retroperitoneal fat in Gerota fascia. We next found the kidney and sharply | |dissected the capsule of the kidney. Once we had done this, we easily | |identified the atrophic left upper pole. We continued to dissect the | |capsule of the left upper pole until we encountered the vessels anteriorly. | |There was a single artery and a single vein and these were tied with 2-0 | |silk and ligated. We next used the Bovie to dissect the atrophic upper | |pole off the remainder of the kidney. Once we had successfully done this, | |we dissected the ureter down as far as roughly the level of the iliac | |vessels. At this point, we stopped the dissection and placed a medium clip | |around the ureter and ligated it. The specimen was then sent off the field | |to Pathology. We closed the kidney using 0-Chromic bolsters. This was | |closed using horizontal mattress sutures. We next examined for any | |bleeding. Having found none, we proceeded to close. A small hole in the | |peritoneum was closed with a running 3-0 Chromic and the hold in the | |pleural cavity was closed with a running 3-0 Chromic. Next, the 10th and | |11th ribs were approximated with a single 0-Biosyn and the posterior fascia | |was approximated using a running 0-Biosyn. Next, the anterior fascia was | |closed with lwgxjt-vq-eycfb 0-Maxon. Prior to starting the closure, we | |placed a #20 Martiniquais red Macias catheter into the pleural cavity through | |the small hole we created. Once the fascia was closed, we put the patient | |into Trendelenburg and placed the catheter under water. The patient was | |then given a deep breath to evacuate all the air from the pleural cavity. | |The catheter was then removed and the soft tissues easily infiltrated the | |tract. Last to close was the See fascia with a running 3-0 Chromic and | |the skin was closed with hernan. A sterile dressing was applied and the | |patient was taken to the recovery room and awakened in good condition. | | | |Dr. Prado was present, scrubbed, and participated in the entire operation. | | | | | | | |Bridger Gonzalez M.D. Keshav Prado M.D. | |Resident, Urology Professor, Surgery/Urology | | | |CK:x11 | | | | | | | |#[id number] | | | | | |[id number] | |CC: | + + documented in this encounter Visit Diagnoses Not on filedocumented in this encounter"
--- OUTSIDE RECORDS SUMMARY | ~2020-05-14 | XMS | Encounter Summary ---
Demographics + + + | Address | [address] | | | [place] [address] | + + + | Home Phone | | + + + | Preferred Language | Unknown | + + + | Marital Status | | + + + | Sikh Affiliation | 1013 | + + + | Race | White | + + + | Ethnic Group | Not or | + + + Author + + + | Author | [facility] | | | and [place] | + + + | Organization | [facility] | | | [...] Team Providers + +------+ + | Care Professor Of Engineering Name | Role | Phone | + +------+ + | Karla Payan PA-C | PCP | | + +------+ + Reason for Visit + +--------+ + | Reason | Onset | Comments | | | Date | | + +--------+ + | Medication Question | 05/14/ | | | | 2019 | | + +--------+ + Encounter Details +--------+ + + + + | Date | Type | Department | Care Team | Description | +--------+ + + + + | 05/14/ | Telephone | [facility] | Galo Majano, | Medication Question | | 2019 | | GASTROENTEROLOGY | BINDING CUTTER [address] | | | | | [address] | [address] [place] | | | | | [address] [place], [place] | [place] [address] | | | | | [address] | [phone] | | | | | [phone] | | | +--------+ + + + [...] Miscellaneous Notes Telephone Encounter - Soha Topete Sexologist - 05/14/2020 12:09 PM PDTContinue wi th Imodium as discussed during visit. Notified patient that she can continue with Imodium as discussed during the office visit. Patient verbalized understanding. She stated that she is heading to the ER due to a kidney i nfection and her blood pressure dropping, also that she has been feeling very nauseous. Elec tronically signed by Soha Topete Sexologist at 05/14/2020 12:11 PM PDTTelephone Enc Soha Martinez Sexologist - 05/14/2020 10:10 AM PDTRouting to [place] to [facility]. eleph one Encounter - Javi Hebert - 05/14/2020 8:44 AM PDTName of Caller: Magi Darcy Gómez Name of Patient: Magi Gómez Reason for call: Patient called and stated that she completed her 6 weeks regime and is now taking chewy pepto bismol, can she continue with imodium medication. Routing to clinical aff. Provider/Nurse: Galo Majano Call back number: [phone] documented in this encou nter Plan of Treatment +--------+---------+ + + + | Date | Type | Specialty | Care Team | Description | +--------+---------+ + + + | 07/01/ | Office | Gastroenterology | Galo Majano, | | | 2019 | Visit | | BINDING CUTTER [address] | | | | | | [facility] [address] [place] | | | | | | [place] [address] | | | | | | [phone] | | | | | | | | +--------+---------+ + + + documented as of this encounter Visit Diagnoses Not on filedocumented in this encounter"
--- OUTSIDE RECORDS SUMMARY | ~2020-05-14 | XMS | Encounter Summary ---
Demographics + + + | Address | [address] | | | [place] [address] | + + + | Home Phone | | + + + | Preferred Language | Unknown | + + + | Marital Status | | + + + | Episcopal Affiliation | 1013 | + + + | Race | White | + + + | Ethnic Group | Not or | + + + Author + + + | Author | [facility] | | | and [place] | + + + | Organization | [facility] | | [...] Team Providers + +------+ + | Care Power Shovel Mechanic Name | Role | Phone | + +------+ + PCP | Unavailable | + +------+ + Encounter Details +--------+ + + + + | Date | Type | Department | Care Team | Description | +--------+ + + + + | 08/18/ | Hospital | [facility] | Conversion | Neck pain | | 2013 | Encounter | CONVERSION DEP [address] | Transaction, | | | | | DERRICK RIZZO | Provider Unknown | | | | | [place] | | | | | | [address] | (Fax) | | | | | [phone] | | | +--------+ + + + [...] | | 2019 | Visit | | PLODDING MACHINE OPERATOR [address] | | | | | | [address] | | | | | | [place] [address] | | | | | | [phone] | | | | | | | | +--------+---------+ + + + documented as of this encounter Procedures + +--------+ + + + | Procedure Name | Priori | Date/Time | Associated Diagnosis | Comments | | | ty | | | | + +--------+ + + + | MRI CERVICAL SPINE | Routin | 07/29/2014 | | Results for this | | WO CONTRAST | e | 2:48 PM | | procedure are in the | | | | PST | | results section. | + +--------+ + + + documented in this encounter Results MRI Cervical Spine wo Contrast (07/29/2014 2:48 PM PST) + + | Specimen | + + [...] + | Diagnosis | + + | Neck pain Cervicalgia | + + documented in this encounter"
--- OUTSIDE RECORDS SUMMARY | ~2020-05-14 | XMS | Encounter Summary ---
Demographics + + + | Address | [address] | | | [place] [address] | + + + | Home Phone | | + + + | Preferred Language | Unknown | + + + | Marital Status | | + + + | Samaritan Affiliation | 1013 | + + + | Race | White | + + + | Ethnic Group | Not or | + + + Author + + + | Author | [facility] | | | and [place] | + + + | Organization | [facility] | | [...] Team Providers + +------+ + | Care Child And Adolescent Psychiatrist Name | Role | Phone | + [...] + | 04/30/ | Telephone | [facility] | Galo Majano, | Medication Question | | 2019 | | GASTROENTEROLOGY | BUYER PLANNER [address] | | | | | [address] | [address] [place] | | | | | [address] [place], [place] | [place] [address] | | | | | [address] | [phone] | | | | | [phone] | | | +--------+ + + + [...] Miscellaneous Notes Telephone Encounter - Soha Topete Tree Shear Operator - 04/30/2020 11:23 AM PDTLVM for blayne [...] see Galo Provider/Nurse: Soha Call back number: [phone] signed by Grace Hawley at 04/30/2020 9: 06 AM PDTdocumented in this encounter Plan of Treatment +--------+---------+ + + + | Date | Type | Specialty | Care Team | Description | +--------+---------+ + + + | 07/01/ | Office | Gastroenterology | Galo Majano, | | | 2019 | Visit | | BUYER PLANNER [address] | | | | | | [address] [place] | | | | | | [place] [address] | | | | | | [phone] | | | | | | | | +--------+---------+ + + + documented as of this encounter Visit Diagnoses Not on filedocumented in this encounter"
--- OUTSIDE RECORDS SUMMARY | ~2020-05-14 | XMS | Encounter Summary ---
Demographics + + + | Address | [address] | | | [place] [address] | + + + | Home Phone | | + + + | Preferred Language | Unknown | + + + | Marital Status | Single | + + + | Restoration Affiliation | Unknown | + + + | Race | White | + + + | Ethnic Group | Not or | + + + Author + + + | Author | [facility] | + + + | Organization | [facility] | + + + | Address | Unknown | + + + | Phone | Unavailable | + + + Support + + + + + | Name | Relationship | Address | Phone | + + + + + | Kaila Ascencio | [address] | [place] | | | | | [address] | | + + + + + Care Team Providers + +------+ + | Care Education Department Registrar Name | Role | Phone | + [...] as of this encounter Progress Notes Interface, Lung Puller In - 08/08/2006 1:08 AM PSTCLINIC DATE: [...] sought care at the emergency room in [place], [place] where she was started on antibiotics. [...] Follow up with her primary doctor in [place], [place]. Bridger Gonzalez M.D. Keshav Prado M.D. DORIS/nriaj cc: ARLENE WEST DO [address] [facility] [id number] signed by Interface, Lung Puller In at 08/08/2006 1 :08 AM PSTdocumented in this encounter Plan of Treatment Not on filedocumented as of this encounter Visit Diagnoses Not on filedocumented in this encounter"
--- OUTSIDE RECORDS SUMMARY | ~2020-05-14 | XMS | Encounter Summary ---
Demographics + + + | Address | [address] | | | [place] [address] | + + + | Home Phone | | + + + | Preferred Language | Unknown | + + + | Marital Status | | + + + | Advent Affiliation | 1013 | + + + | Race | White | + + + | Ethnic Group | Not or | + + + Author + + + | Author | [facility] | | | and [place] | + + + | Organization | [facility] | | [...] Providers + +------+ + | Care Oil Laboratory Analyst Name | Role | Phone | + [...] | | not due to a | [place] | [address] | | | | | substance | [place], | [address] | | | | | or known | [place] [address] | [address] [place] | | | | | physiologica | | [place], [place] | | | | | l condition | | [address] | | | | | Procedures | | Phone: | | | | | BUSINESS DEVELOPMENT COORDINATOR OFFICE | | [phone] | | | | | VISIT | | Fax: | | | | | | | [phone] | + +--------+ + + + + Encounter Details +--------+---------+ + + + | Date | Type | Department | Care Team | Description | +--------+---------+ + + + | 04/01/ | Office | [facility] | Galo Majano, | Diarrhea, | | 2020 | Visit | GASTROENTEROLOGY | KNIFE MACHINE OPERATOR [address] | unspecified type | | | | [address] | [address] [place] | (Primary Dx); LFT | | | | [address] [place], [place] | [place] [address] | elevation; | | | | [address] | [phone] | Hypokalemia | | | | [phone] | | | +--------+---------+ + + + [...] in this encounter Progress Notes Soha Topete Corporate Specialist - 04/01/2020 1:00 PM PDTScheduled pt for [...] prior to procedure, Patient will report to [facility] clinic on 04/17/20; order created; info given [...] December 11 when she was hospitalized in [facility] in which was diagnosed with COVID-19 based [...] Take 1 tablet by mout h Daily. RCQJKUG-FUSSWSTARZ-VZKP 333-133-8.3 MG TABS Take by mouth. cholecalciferol [...] Take 40 mg by mouth nightly. VIT W/XA-NVBYQBVEW-EZ PO Take 1 tablet by mouth Daily. [...] this chart may have been created with Werk[employer] voice recognition software. Occasi onal wrong-word or [...] | | 2019 | Visit | | KNIFE MACHINE OPERATOR [address] | | | | | | [place] | | | | | | [place] [address] | | | | | | [phone] | | | | | | | [...]
--- OUTSIDE RECORDS SUMMARY | ~2020-05-14 | XMS | Clinical Summary ---
Demographics + + + | Address | [address] | | | [place] [address] | + + + | Home Phone | | + + + | Preferred Language | Unknown | + + + | Marital Status | | + + + | Scientology Affiliation | 1013 | + + + | Race | White | + + + | Ethnic Group | Not or | + + + Author + + + | Author | [facility] | | | and [place] | + + + | Organization | [facility] | | | and [...] Team Providers + +------+ + | Care Overedge Sewer Name | Role | Phone | + [...] 0 | | | Activ | | ZTDDAST-ACXBVLADXQ-F | | | | | | e [...] e | + + + +---------+------+------+-------+ | [place]-3 Fatty | Take 1 tablet by | [...] | | + + + +---------+------+------+-------+ | VIT | Take 1 tablet by | | 0 | | 09/0 | Disco | | W/VT-KTHDKJHOK-GJ PO | mouth Daily. | | | | 2/20 | ntinu | | | | | | | 20 | ed | | | | | | | | (Ther | | | | | | | | apy | | | | | | | | compl | | | | | | | | eted) | + + + +---------+------+------+-------+ | calcium | Take 1 tablet by | | 0 | | 09/0 | Disco | | citrate-vitamin D | mouth Daily. | | | | 2/20 | ntinu | | (CITRACAL MAXIMUM) | | | | | 20 | ed | | 315-250 MG-UNIT TABS | | | | | | (Ther | | | | | | | | apy | | | | | | | | compl | | | | | | | | eted) | + + + +---------+------+------+-------+ | omeprazole | Take 20 mg by mouth | | 0 | | 09/0 | Disco | | (PRILOSEC) 20 mg | every morning | | | | 9/20 | ntinu | | capsule | (before breakfast). | | | | 20 | ed | + + + +---------+------+------+-------+ | aspirin 81 mg EC | Take 81 mg by mouth | | 0 | | 09/0 | Disco | | tablet | Daily. | | | | 2/20 | ntinu | | | | | | | 20 | ed | | | | | | | | (Ther | | | | | | | | apy | | | | | | | | compl | | | | | | | | eted) | + + + +---------+------+------+-------+ | potassium chloride | Take 10 mEq by mouth | | 0 | | 09/0 | Disco | | (KLOR-CON) 10 MEQ | 2 times daily. | | | | 2/20 | ntinu | | ER tablet | | | | | 20 | ed | | | | | | | | (Ther | | | | | | | | apy | | | | | | | | compl | | | | | | | | eted) | + + + +---------+------+------+-------+ | cholestyramine | Take 4 g by mouth 3 | 90 | 0 | 08/2 | 09/0 | Disco | | (QUESTRAN) 4 GM/DOSE | times daily for 30 | packet | | 4/20 | 2/20 | ntinu | | powder | days 4 g = 1 scoop. | | | 20 | 20 | ed | | | | | | | | (Ther | | | | | | | | apy | | | | | | | | compl | | | | | | | | eted) | + + + +---------+------+------+-------+ | bismuth | Chew and swallow 2 | 112 | 0 | 09/0 | 09/2 | Expir | | subsalicylate (PEPTO | tablets 4 times | tablet | | 9/20 | 3/20 | ed | | BISMOL) 262 mg [...] 2 times daily | tablet | | 9/20 | 3/20 | ed | | tablet | for [...] | 28 | 0 | 09/0 | 09/ | Expir | | (PRILOSEC) 20 mg | mouth 2 times daily | capsule | | / | 11/06 | ed | | capsule | (before [...] automatically from request for surgery | | [id number] | + + + + + | LFT elevation | 04/16/2020 | + + + + + | Overview: Added automatically from request for surgery | | [id number] | + + + + + | [...] Medication Question | | 2019 | | | TIRE WORKER | | +--------+ + + + + | 05/03/ | Telephone | Gastroenterology | Galo Majano, | Other | | 2020 | | | TIRE WORKER | | +--------+ + + + + | 04/30/ | Telephone | Gastroenterology | Galo Majano, | Medication Question | | 2019 | | | TIRE WORKER | | +--------+ + + + + | 04/28/ | Office | Gastroenterology | Galo Majano, | Helicobacter pylori | | 2019 | Visit | | TIRE WORKER | infection (Primary | | | | [...] Other | | 2019 | | | TIRE WORKER | | +--------+ + + + + [...] Urgent Care | | Preop testing | | 2019 | Encounter | | | (Primary Dx) | +--------+ + + + + | 04/19/ | Telephone | Gastroenterology | Galo Majano | Diarrhea (extremely | | 2019 | | | TIRE WORKER | loose stools with | | | | | | change in | | | | | | medication) | +--------+ + + + + | 04/14/ | Telephone | Gastroenterology | Chele Lynn | Testing (COVID) | | 2019 | | | MD Scott | | +--------+ + + + + | 04/12/ | Orders Only | Gastroenterology | Galo Majano, | | | 2019 | | | TIRE WORKER | | +--------+ + + + + | 04/12/ | Telephone | Gastroenterology | Galo Majano, | Other (medication ) | | 2020 | | | TIRE WORKER | | +--------+ + + + + | 04/01/ | Office | Gastroenterology | Galo Majano, | Diarrhea, | | 2019 | Visit | | TIRE WORKER | unspecified type | | | | | | (Primary Dx); LFT | | | | | | elevation; | | | | | | Hypokalemia | +--------+ + + + + | 03/30/ | Abstract | Gastroenterology | Provider, | | | 2019 | | | HistoricalMD | | +--------+ + + + + | 03/24/ | Abstract | Gastroenterology | Provider, | | | 2019 | | | HistoricalMD | | +--------+ + + + + [...] | | 2019 | Visit | | TIRE WORKER [address] | | | | | | [address] [facility] | | | | | | [place] [address] | | | | | | [phone] | | | | | | | [...] | 04/07/20 | | | | | , | | | | | 06/05/20 | | | | | , | | | | | 04/17/20 | [...] + +--------+ + + + | *TERMED* [place] UPPER GI | Routin | 04/22/2020 | [...] Performed At | + + + | Emilee | [facility] | | [facility]ologyPatient Name: Magi Gómez | PROVATION | | S.Procedure Date: 04/22/2020 9:47 AMMRN: [id number] Number: | | | [id number] of : 1955Note Status: FinalizedAttending MD: | | | CHELE LYNN MDProcedure Type: Upper GI | | | endoscopyIndications: Abdominal bloating, | | | DiarrheaProviders: CHELE LYNN MD, | | | Nola Vieira RN, Claudia | | | ISRAEL Rivera, Toby Palmer, TechnicianReferring MD: | | | Karla Payan (Referring [...] AMNumber of Addenda: 0 | | | [facility] | | | - Duodenitis. [...] |Number of Addenda: 0 | | | [facility] | | + + + + +---------+ + + | Performing | Address | City/State/[facility] Centercode | Phone Number | | Organization | [...] performance | | | characteristics determined by [facility]. It has not been | | | cleared or approved by the U.S. Food and Drug Administration. The | | | FDA has determined that such clearance or approval is not necessary. | | | This test is used for clinical purposes. It should not be regarded | | | as investigational or for research. [facility] is certified | | | under the Clinical Laboratory Improvement Amendments of 1988 (CLIA) | | | as qualified to perform high complexity clinical laboratory testing. | | | PERFORMING LABORATORY: The technical component was performed by | | | [facility], [address] [place] [address] (Medical | | | Director: Jennie Roberts MD; CLIA# [id number]). Professional | | | interpretation was performed by [facility] | | | [facility], [address] [place] [address] | | | [id number] (Collection Systems Worker: Antoni Prince M.D.). Diagnostician: | | | Antoni Prince MD Pathologist Electronically Signed 04/23/2020 | | | | | + + + + +---------+ + + | Performing | Address | City/State/Zipcode | Phone Number | | Organization | | | | + +---------+ + + | [place] [facility] | | | | | [facility] | | | | + +---------+ + [...] + + | Performed at: 01 - [facility] [address], | REFERENCE LAB | | [place], [place] [id number] Parts Assembler: Isra Spears MD, Phone: | [facility] | | [phone] | | + + + + + + + + | Performing | Address | City/State/Zipcode | Phone Number | | Organization | | | | + + + + + | REFERENCE LAB | [address] | [place], [place] | [phone] | | [facility] | [facility] | [address] | | + + + + + [...] +--------+ +---------+--------+ | MEDICARE | MEDICA | [id number] | 02/18/20 | [phone] | | Medica | | | RE | | 20-Pre | 5 | | re | | | PART A | | sent | | | | + +--------+ +--------+ +---------+--------+ | GEHA | GEHA | [id number] | | [phone] | | PPO | [...] | 1955 | [phone] | [place] [address] | | | vince | | | 1 (Home) | | | | | | | [phone] | | | | | | | 5 (Work) | | + +--------+ +--------+ + + Advance Directives + + + + + | Type | Date Recorded | Patient | Explanation | | | | Trim Setter Helper | | + + + + + | Power of | | | | | Feather Stitcher | | | | + + + + + | Advance | 04/22/2020 8:22 | | | | Directive | AM | | | + + + + +
--- OUTSIDE RECORDS SUMMARY | ~2020-05-14 | XMS | Clinical Summary ---
Demographics + + + | Address | [address] | | | [place] [address] | + + + | Home Phone | | + + + | Preferred Language | Unknown | + + + | Marital Status | Single | + + + | Cheondoism Affiliation | Unknown | + + + [...] [place] | | | | | [address] | | + + + + + Care Team Providers + +------+ + | Care Roof Bolter Operator Name | Role | Phone | + +------+ + PCP | Unavailable | + +------+ + Source Comments KEENAN is fully live on both [facility] Ambulatory and [facility] InPatient.[facility] Allergies Not on File Medications Not on [...]
--- OUTSIDE RECORDS SUMMARY | ~2020-05-14 | XMS | Encounter Summary ---
Demographics + + + | Address | [address] | | | [place] [address] | + + + | Home Phone | | + + + | Preferred Language | Unknown | + + + | Marital Status | | + + + | Worship Affiliation | 1013 | + + + | Race | White | + + + | Ethnic Group | Not or | + + + Author + + + | Author | [facility] | | | and [place] | + + + | Organization | [facility] | | | [...] Team Providers + +------+ + | Care Regulatory Compliance Director Name | Role | Phone | [...] [place] | | | | | | [address] | (Fax) | | | | | [phone] | | | +--------+ + + + [...] | | 2019 | Visit | | WORK STUDY STUDENT [address] | | | | | | [address] [place] | | | | | | [place] [address] | | | | | | [phone] | | | | | | | [...]
--- OUTSIDE RECORDS SUMMARY | ~2020-05-14 | XMS | Encounter Summary ---
Demographics + + + | Address | [address] | | | [place] [address] | + + + | Home Phone [...] [place] | | | | | [address] | | + + + + + Care Team Providers + +------+ + | Care Produce Team Lead Name | Role | Phone | + +------+ + PCP | Unavailable | + +------+ + Encounter Details +--------+ + + + + | Date | Type | Department | Care Team | Description | +--------+ + + + + | 01/10/ | Results | LAB CORE [address] | Tam, Faculty | | | 1998 | Only | [address] | [phone] | | | | | [place], [place] | | | | | | [address] | | | | | | [phone] | | | +--------+ + + + [...] [facility] | [address] | [place] [address] | | | PATHOLOGY | [address] | | | + + + + + documented in this encounter Visit Diagnoses Not on filedocumented in this encounter"
--- OUTSIDE RECORDS SUMMARY | ~2020-05-14 | XMS | Encounter Summary ---
Demographics + + + | Address | [address] | | | [place] [address] | + + + | Home Phone | | + + + | Preferred Language | Unknown | + + + | Marital Status | | + + + | Baptist Affiliation | 1013 | + + + | Race | White | + + + | Ethnic Group | Not or | + + + Author + + + | Author | [facility] | | | and [place] | + + + | Organization | [facility] | | | [...] Team Providers + +------+ + | Care Recruitment Specialist Name | Role | Phone | + +------+ + PCP | Unavailable | + +------+ + Encounter Details +--------+ + + + + | Date | Type | Department | Care Team | Description | +--------+ + + + + | 02/18/ | Hospital | [facility] | Unknown, | | | 2000 | Encounter | MED CTR XRAY [address] | MD Leatha . | | | | | [place] | | | | | | [place] [address] | (Fax) | | | | | [phone] | | | +--------+ + + + [...] | | 2019 | Visit | | NUCLEAR LOGGING ENGINEER [address] | | | | | | [address] [place] | | | | | | [place] [address] | | | | | | [phone] | | | | | | | | +--------+---------+ + + + documented as of this encounter Visit Diagnoses Not on filedocumented in this encounter"
--- OUTSIDE RECORDS SUMMARY | ~2020-05-14 | XMS | Encounter Summary ---
Demographics + + + | Address | [address] | | | [place] [address] | + + + | Home Phone | | + + + | Preferred Language | Unknown | + + + | Marital Status | | + + + | Cheondoism Affiliation | 1013 | + + + | Race | White | + + + | Ethnic Group | Not or | + + + Author + + + | Author | [facility] | | | and [place] | + + + | Organization | [facility] | | | [...] Team Providers + +------+ + | Care Instructional Services Specialist Name | Role | Phone | [...] | | 2020 | | GASTROENTEROLOGY | FRUIT LOADER MACHINE OPERATOR [address] | | | | | [address] | [address] [place] | | | | | [address] [place], [place] | [place] [address] | | | | | [address] | [phone] | | | | | [phone] | | | +--------+ + + + [...] AM PDTPer Galo Garcia Notified patient that Imler ordered Cholestyramine 4g by mouth 3 times daily for 30 days. Will need to take 2-3 hours after morning medications. Will need to d/c Colestipol. [facility] Patient verbalized understanding. elephone Encounter - [...] w ith her loose stools. Routing to Imler to advice. documented in this encounter Plan [...] | | | | | | [place] [address] | | | | | | [phone] | | | | | | | | +--------+---------+ + + + documented as of this encounter Visit Diagnoses Not on filedocumented in this encounter"
--- OUTSIDE RECORDS SUMMARY | ~2020-05-14 | XMS | Encounter Summary ---
Demographics + + + | Address | [address] | | | [place] [address] | + + + | Home Phone | | + + + | Preferred Language | Unknown | + + + | Marital Status | | + + + | Catholic Affiliation | 1013 | + + + | Race | White | + + + | Ethnic Group | Not or | + + + Author + + + | Author | [facility] | | | and [place] | + + + | Organization | [facility] | | | [...] Team Providers + +------+ + | Care Ring Facer Name | Role | Phone | + +------+ + | Karla Payan PA-C | PCP | | + +------+ + Reason for Visit +---------+--------+ + | Reason | Onset | Comments | | | Date | | +---------+--------+ + | Testing | 04/14/ | COVID | | | 2020 | | +---------+--------+ + Encounter Details +--------+ + + + + | Date | Type | Department | Care Team | Description | +--------+ + + + + | 04/14/ | Tele[facility] | [facility] | Chele Wilson | Testing (COVID) | | 2019 | | GASTROENTEROLOGY | MD Jong [address] | | | | | [address] | [address] [place] | | | | | [address] [place], [place] | [place] [address] | | | | | [address] | [phone] | | | | | [phone] | | | +--------+ + + + [...] this encounter Miscellaneous Notes Telephone Encounter - Malgorzata Funk RN - 04/14/2020 5:37 PM PDTSpoke with patient to advise of change in COVID testing from 5 to 3 days prior to procedure; she will go on 04/19 between 6-9 for testing; procedure on 04/[address] Wilson for EGD. Electronically mally d by Malgorzata Funk RN at 04/14/2020 5:38 PM PDTdocumented in this encounter Plan of Treatment +--------+---------+ + + + | Date | Type | Specialty | Care Team | Description | +--------+---------+ + + + | 07/01/ | Office | Gastroenterology | Galo Majano, | | 2019 | Visit | | STEPHON [address] | | | | | | [address] [facility] | | | | | | [place] [address] | | | | | | [phone] | | | | | | | | +--------+---------+ + + + documented as of this encounter Visit Diagnoses Not on filedocumented in this encounter"
--- OUTSIDE RECORDS SUMMARY | ~2020-05-14 | XMS | Encounter Summary ---
Demographics + + + | Address | [address] | | | [place] [address] | + + + | Home Phone [...] Author + + + | Author | [facility] | + + + | Organization | [facility] | + + + | Address | Unknown | + + + | Phone | Unavailable | + + + Support + + + + + | Name | Relationship | Address | Phone | + + + + + | Kaila Ascencio | JOEY | [place] | | | | | [address] | | + + + + + Care Team Providers + +------+ + | Care Twill Cutter Name | Role | Phone | + [...] [address] | | | | | | [place], [place] | | | | | | [address] | | | | | | [phone] | | | +--------+ + + + [...] | | + +---------+ + + | [facility] DEPARTMENT OF | | | | | RADIOLOGY | | | | + +---------+ + + documented in this encounter Visit Diagnoses Not on filedocumented in this encounter"
--- OUTSIDE RECORDS SUMMARY | ~2020-05-14 | XMS | Encounter Summary ---
Demographics + + + | Address | [address] | | | [place] [address] | + + + | Home Phone | | + + + | Preferred Language | Unknown | + + + | Marital Status | | + + + | Adventism Affiliation | 1013 | + + + | Race | White | + + + | Ethnic Group | Not or | + + + Author + + + | Author | [facility] | | | and [place] | + + + | Organization | [facility] | | [...] Team Providers + +------+ + | Care Electronic Page Makeup System Operator Name | Role | Phone | [...] | | | Procedures | | [place] [address] | | | | | [place] | | Phone: | | | | | ESOPHAGOGAST | | [phone] | | | | | RODUODENOSCO | | Fax: | | | | | PY TRANSORAL | | [phone] | | | | | DIAGNOSTIC | | | | | | | FL EGD | | | | | | | TRANSORAL | | | | | | | BIOPSY | | | | | | | SINGLE/MULTI | | | | | | | PLE EGD | | | +--------+--------+ + + + + Encounter Details +--------+ + + + + | Date | Type | Department | Care Team | Description | +--------+ + + + + | 04/22/ | Hospital | [facility] | Chele Lynn | Diarrhea, | | 2020 | Encounter | MED CTR MP INTRA OP | MD Scott [address] | unspecified type; | | | | [address] | [address] [place] | LFT elevation | | | | [place], [place] | [place] [address] | | | | | [address] | [phone] | | | | | [phone] | | | +--------+ + + + [...] + + + | Blood Pressure | 133/58 | 04/22/2020 11:00 AM | | | | | PDT | | + + + + + | Pulse | 64 | 04/22/2020 11:04 AM | | | | | PDT | | + + + + + | Temperature | 36.6 C (97.9 F) | 04/22/2020 9:16 AM | | | | | PDT | | + + + + + | Respiratory Rate | 16 | 04/22/2020 10:28 AM | | | | | PDT | | + + + + + | Oxygen Saturation | 100% | 04/22/2020 11:04 AM | | | | | PDT [...] + documented in this encounter Discharge Instructions Instructions Emilee Johnson RN - 04/22/2020 Recovery After Procedural Sedation [...] You can't be awakened Fever New rash [employer] last reviewed this educational content on 04/20/201919996282-1786 [employer]. [address] [place] [address]. All righ ts reserved. This information is [...] | | 0 | | | | FTLAYUQ-CIQZRECCSH-N | | | | | | | [...] + + + +---------+ + + | Jackson-3 Fatty | Take 1 tablet by | [...] diverticulosis, minimal internal hemorrhoids. ~Александр Chavez M.D. [facility] ELBOW SURGERY Left FINGER TRIGGER RELEASE 2011 [...] 150 mg by mouth 2 times daily. OHAAMRI-KPTFKPQBBL-DLBK 333-133-8.3 MG TABS Take by mouth. cholecalciferol [...] 1 patch topically once daily as directed Jackson-3 Fatty Acids (FISH OIL PO) Take 1 [...] Class 2 (upper half of tonsil fossa) [place] Society of Anesthesia Grade:ASA 2 - A [...] Electronically Signed by: Chele Lynn MD 04/22/2020 [facility] VERIFICATION OF CONSENT (PARQ) The patient was counseled regarding the procedure, its indications, risks, potential compli cations and alternatives. Any questions were answered. Consent was obtained. Chele Lynn MD, 04/22/2020 9:59 AM [facility] Portions of this chart may have been created with [employer] voice recognition software. Occasi onal wrong-word or [...] Endoscopy Patient: Magi Gómez : 1955 Acct: [id number] Exam Date: April Doctor: CHELE LYNN MD [...] If unable to reach your physician, call [facility] Emergency Department at Ext. 2500 Your doctor [...] | | 2019 | Visit | | DEHYDRATOR [address] | | | | | | [place] | | | | | | [place] [address] | | | | | | [phone] | | | | | | | [...] + +--------+ + + + | *TERMED* [place] UPPER GI | Routin | 04/22/2020 | [...] Performed At | + + + | [facility] | [facility] | | [facility]ologyPatient Name: Magi Gómez | [place] | | [place].Procedure Date: 04/22/2020 9:47 AMMRN: [id number] Number: | | | [id number] of : 1955Note Status: FinalizedAttending MD: | | | CHELE LYNN , [facility]cedure Type: Upper GI | | | endoscopyIndications: [...] AMNumber of Addenda: 0 | | | [facility] | | | - Duodenitis. [...] |Number of Addenda: 0 | | | [facility] | | + + + [...] performance | | | characteristics determined by [facility]. It has not been | | | cleared or approved by the U.S. Food and Drug Administration. The | | | FDA has determined that such clearance or approval is not necessary. | | | This test is used for clinical purposes. It should not be regarded | | | as investigational or for research. [facility] is certified | | | under the Clinical Laboratory Improvement Amendments of 1988 (CLIA) | | | as qualified to perform high complexity clinical laboratory testing. | | | PERFORMING LABORATORY: The technical component was performed by | | | [facility], [address] [place] [id number] (Medical | | | Director: Jennie Roberts MD; CLIA# [id number]). Professional | | | interpretation was performed by [facility] [place] | | | [facility], [address] [place] [address] | | | [phone] (Hydrogeologist: Antoni Prince M.D.). Diagnostician: | | | Antoni Prince MD Pathologist Electronically Signed 04/23/2020 | | | | | + + + + +---------+ + + | Performing | Address | City/State/[facility] Centercode | Phone Number | | Organization | | | | + +---------+ + + | [facility] | | | | | [email or web address] | | | | + +---------+ + [...] abnormal blood chemistry | + + | HTN (hypertension) Unspecified essential hypertension | + + | Diverticulosis Diverticulosis of colon (without mention of hemorrhage) | + + documented in this encounter [...]
--- OUTSIDE RECORDS SUMMARY | ~2020-05-14 | XMS | Encounter Summary ---
Demographics + + + | Address | [address] | | | [place] [address] | + + + | Home Phone | | + + + | Preferred Language | Unknown | + + + | Marital Status | | + + + | Jainism Affiliation | 1013 | + + + [...] Team Providers + +------+ + | Care Mail Agent Name | Role | Phone | + [...] [place] | | | | | | [address] | | | | | | [phone] | | | +--------+ + + + [...] | | 0 | | | | [id number] | | | | | | | [...] + + + +---------+ + + | [place]-3 Fatty | Take 1 tablet by | [...] | | 0 | | | | [id number]/NH-[id number] PO | mouth Daily. | | | | 0 | + + + +---------+ + + documented as of this encounter Miscellaneous Notes [facility] Triage Notes - Emily Sparks, Telehealth Nurse Educator - 04/19/2020 8:47 AM PDTPRE-PROCED URE COVID [...] [] Asymptomatic - testing requested by authorized [facility] personnel, [facility] Infection Prevention Nurse or Caregiver Health [] Asymptomatic, regardless of age, pre-travel screening only [] Asymptomatic, regardless of age, housing screening PROVIDER EVALUATION REQUIRED [] Patient identified as having symptoms associated with COVID-19, patient encouraged to notify their PCP or procedure ordering physician of symptoms. Discharge: [x] Social Distancing/Quarantine GuidelinesElectronically signed by Emily Sparks [place] altagraciaal Amusement Or Recreation Card Checker at 04/19/2020 8:48 AM PDTdocumented in this encounter Plan of Treatment +--------+---------+ + + + | Date | Type | Specialty | Care Team | Description | +--------+---------+ + + + | 07/01/ | Office | Gastroenterology | Sherinestephanie Galo Berto, | | | 2019 | Visit | | FLATWORK TIER [address] | | | | | | [address] [place] | | | | | | [place] [address] | | | | | | [phone] | | | | | | | [...] + + | Performed at: [address] [address], | REFERENCE LAB | | [place], [place] [id number] Orthopedic Surgeon: Isra Spears MD, Phone: | [facility] | | [phone] | | + + + + + + + + | Performing | Address | City/State/Zipcode | Phone Number | | Organization | | | | + + + + + | REFERENCE LAB | [address] | [place], [place] | [phone] | | [facility] | [facility] | [address] | | + + + + + documented in this encounter Visit Diagnoses + + | Diagnosis | + + | Preop testing - Primary Preoperative examination, unspecified | + + documented in this encounter"
--- OUTSIDE RECORDS SUMMARY | ~2020-05-14 | XMS | Encounter Summary ---
Demographics + + + | Address | [address] | | | [place] [address] | + + + | Home Phone [...] Team Providers + +------+ + | Care Base Cloth Inspector Name | Role | Phone | + [...] | | 2020 | | GASTROENTEROLOGY | MENTAL HEALTH ORDERLY [address] | | | | | [address] | [address] [place] | | | | | [address] [place], [place] | [place] [address] | | | | | [address] | [phone] | | | | | [phone] | | | +--------+ + + + [...] Miscellaneous Notes Telephone Encounter - Soha Topete Piece Hand - 04/29/2020 8:35 AM PDTOr[facility]e d [facility] [place] Patient notified. elephone Encounter - Grace Hawley - 04/28/2020 3:36 PM PDTPatient called and stated her orders for her stool [facility], patient would like to complete this today. Patients phone [phone] tronically signed by Grace Hawley at 04/28/2020 3:43 PM PDTdocumented in this encount er Plan of Treatment +--------+---------+ + + + | Date | Type | Specialty | Care Team | Description | +--------+---------+ + + + | 07/01/ | Office | Gastroenterology | Galo Majano, | | 2019 | Visit | | MENTAL HEALTH ORDERLY [address] | | | | | | [place] | | | | | | [place] [address] | | | | | | [phone] | | | | | | | | +--------+---------+ + + + documented as of this encounter Visit Diagnoses Not on filedocumented in this encounter"
--- OUTSIDE RECORDS SUMMARY | ~2020-05-14 | XMS | Encounter Summary ---
Demographics + + + | Address | [address] | | | [place] [address] | + + + | Home Phone [...] Team Providers + +------+ + | Care Amortization Schedule Clerk Name | Role | Phone | + [...] [place] | [place] [address] | | | | | [address] | | | | | | [phone] | | | +--------+ + + + [...] | | 2019 | Visit | | REGULATORY ASSOCIATE [address] | | | | | | [address] [place] | | | | | | [place] [address] | | | | | | [phone] | | | | | | | [...]
--- OUTSIDE RECORDS SUMMARY | ~2020-05-14 | XMS | Encounter Summary ---
Demographics + + + | Address | [address] | | | [place] [address] | + + + | Home Phone | | + + + | Preferred Language | Unknown | + + + | Marital Status | Single | + + + | Scientology Affiliation | Unknown | + + + [...] [place] | | | | | [address] | | + + + + + Care Team Providers + +------+ + | Care Chief Service Dispatcher Name | Role | Phone | [...] as of this encounter Discharge Summaries Interface, Sports Team Marketing Intern In - 08/10/2006 5:[address] [address] [facility] MEDICAL SUMMARY OF HOSPITALIZATION Med Rec No: [...] nephrectomy. The patient agreed and presented to [facility] for management. HOSPITAL COURSE: The [...] follow up with her referring physician in [place]. Should she have any complications or problems related to her surgery, we will be happy to see her again in [place]. Bridger Gonzalez M.D. Keshav Prado M.D. DORIS/juan A cc: DON DOHERTY DO [address] [place] [address] ARLENE WEST DO [address] [place] [email or web address] signed by Interface, Sports Team Marketing Intern In at 08/10/2006 5:08 AM PSTdocumented in this encounter Plan of Treatment Not on filedocumented as of this encounter Visit Diagnoses Not on filedocumented in this encounter"
--- OUTSIDE RECORDS SUMMARY | ~2020-05-14 | XMS | Encounter Summary ---
Demographics + + + | Address | [address] | | | [place] [address] | + + + | Home Phone | | + + + | Preferred Language | Unknown | + + + | Marital Status | | + + + | Rastafari Affiliation | 1013 | + + + | Race | White | + + + | Ethnic Group | Not or | + + + Author + + + | Author | [facility] | | | and [place] | + + + | Organization | [facility] | | | [...] Team Providers + +------+ + | Care Print Machine Operator Name | Role | Phone [...] | | | Procedures | | [place] [address] | | | | | [place] | | Phone: | | | | | ESOPHAGOGAST | | [phone] | | | | | RODUODENOSCO | | Fax: | | | | | PY TRANSORAL | | [phone] | | | | | DIAGNOSTIC | | | | | | | [place] EGD | | | | | | [...] | | | | | [address] | [address] | | | | | [place] | [place] [address] | | | | | [address] | [phone] | | | | | [phone] | | | +--------+---------+ + + + [...] Allyssa last reviewed this educational content on 04/20/201919996760-6106 [employer]. [address] [place] [address]. All righ ts reserved. This information is [...] | | 0 | | | | [id number] | | | | | | | [...] + + + +---------+ + + | [place]-3 Fatty | Take 1 tablet by | [...] diverticulosis, minimal internal hemorrhoids. ~Александр Chavez M.D. [facility] ELBOW SURGERY Left FINGER TRIGGER RELEASE 2011 [...] 150 mg by mouth 2 times daily. [id number] 333-133-8.3 MG TABS Take by mouth. cholecalciferol [...] 1 patch topically once daily as directed [place]-3 Fatty Acids (FISH OIL PO) Take 1 [...] Class 2 (upper half of tonsil fossa) [place] [employer] of Anesthesia Grade:ASA 2 - A [...] Electronically Signed by: Chele Lynn MD 04/22/2020 [facility] VERIFICATION OF CONSENT (PARQ) The patient was counseled regarding the procedure, its indications, risks, potential compli cations and alternatives. Any questions were answered. Consent was obtained. Chele Lynn MD, 04/22/2020 9:59 AM [facility] Portions of this chart may have been created with [employer] voice recognition software. Occasi onal wrong-word or [...] Endoscopy Patient: Magi Gómez : 1955 Acct: [id number] Exam Date: April Doctor: CHELE LYNN MD [...] If unable to reach your physician, call [facility] Emergency Department at Ext. 2500 Your doctor [...] | | 2019 | Visit | | DATA OPERATIONS MANAGER [address] | | | | | | [place] | | | | | | [place] [address] | | | | | | [phone] | | | | | | | [...] + +--------+ + + + | *TERMED* [place] UPPER GI | Routin | 04/22/2020 | [...] Performed At | + + + | [facility] | [facility] | | [facility] Name[facility] Magi [facility] | PROVATION | | S.Procedure Date: 04/22/2020 9:47 AMMRN: [id number] Number: | | | [id number] of : 1955Note Status: FinalizedAttending MD: | [...] AMNumber of Addenda: 0 | | | [facility] | | | - Duodenitis. Biopsied. Appearance [...] |Number of Addenda: 0 | | | [facility] | | + + + + +---------+ [...] performance | | | characteristics determined by [facility]. It has not been | | | cleared or approved by the U.S. Food and Drug Administration. The | | | FDA has determined that such clearance or approval is not necessary. | | | This test is used for clinical purposes. It should not be regarded | | | as investigational or for research. [facility] is certified | | | under the Clinical Laboratory Improvement Amendments of 1988 (CLIA) | | | as qualified to perform high complexity clinical laboratory testing. | | | PERFORMING LABORATORY: The technical component was performed by | | | [facility], [address] [facility] [address] (Medical | | | Director: Jennie Roberts MD; IA# [id number]). Professional | | | interpretation was performed by [facility] | | | [facility], [address] [place], [place] | | | [address] (Farm Equipment Engineer: Antoni Prince M.D.). Diagnostician: | | | Antoni Prince MD Pathologist Electronically Signed 04/23/2020 | | | | | + + + + +---------+ + + | Performing | Address | City/State/Zipcode | Phone Number | | Organization | | | | + +---------+ + + | [place] [facility] | | | | | [facility] | | | | + +---------+ + [...]
--- OUTSIDE RECORDS SUMMARY | ~2020-05-14 | XMS | Encounter Summary ---
Demographics + + + | Address | [address] | | | [place] [address] | + + + | Home Phone | | + + + | Preferred Language | Unknown | + + + | Marital Status | | + + + | Caodaism Affiliation | 1013 | + + + | Race | White | + + + | Ethnic Group | Not or | + + + Author + + + | Author | [facility] | | | and [place] | + + + | Organization | [facility] | | | [...] Team Providers + +------+ + | Care Stroke Program Coordinator Name | Role | Phone | [...] [place] | [place] [address] | | | | | [address] | | | | | | [phone] | | | +--------+ + + + [...] | | 2019 | Visit | | MANAGER SOCIAL RESPONSIBILITY [address] | | | | | | [address] [place] | | | | | | [place] [address] | | | | | | [phone] | | | | | | | [...]
--- OUTSIDE RECORDS SUMMARY | ~2020-05-14 | XMS | Encounter Summary ---
Demographics + + + | Address | [address] | | | [place] [address] | + + + | Home Phone | | + + + | Preferred Language | Unknown | + + + | Marital Status | | + + + | Jain Affiliation | 1013 | + + + [...] Providers + +------+ + | Care It Operations Specialist Name | Role | Phone [...] | | 2019 | | GASTROENTEROLOGY | PREPARATION CENTER COORDINATOR [address] | | | | | [address] | [address] [place] | | | | | [address] [place], [place] | [place] [address] | | | | | [address] | [phone] | | | | | [phone] | | | +--------+ + + + [...] | | 2019 | Visit | | PREPARATION CENTER COORDINATOR [address] | | | | | | [address] [place] | | | | | | [place] [address] | | | | | | [phone] | | | | | | | | +--------+---------+ + + + documented as of this encounter Visit Diagnoses Not on filedocumented in this encounter"
--- OUTSIDE RECORDS SUMMARY | 2020-05-14 13:28 | XMS ---
PreManage Notification: [facility] [employer] Custodian Events No recent Security Events currently on file CRITERIA MET - PDMP CARE PROVIDERS REVA YOUNG Physician Director Of Institutional Sales 12/15/2019-Current PHONE: Unknown Ernst has no Care Guidelines for this patient. [facility] VISIT COUNT (12 MO.) 2 WILIAN Cobian TOTAL 2 NOTE: Visits indicate total known visits. ED/UCC VISIT TRACKING (12 MO.) 05/14/2020 13:26 W[facility] Ramirez [place] TYPE: Emergency COMPLAINT: - DIZZINESS, NAUSEA/VOMITING 12/12/2019 20:11 [facility] [place] TYPE: Emergency COMPLAINT: - FLU SYMPTOMS DIAGNOSES: - Nicotine dependence, unspecified, uncomplicated - Pure hypercholesterolemia, unspecified - Essential (primary) hypertension - Other bed bug exterminator (current) drug therapy - Major depressive disorder, single episode, unspecified - Allergy status to sulfonamides status - Allergy status to other drugs, medicaments and biological sub - Viral infection, unspecified - Anxiety disorder, unspecified - Unspecified abdominal pain INPATIENT VISIT TRACKING (12 MO.) No inpatient visits to display in this time frame [email or web address]
== END ==
LOC: ED 13:24
DX: E86.0 Dehydration (principal); R11.2 Nausea with vomiting, unspecified; I10 Essential (primary) hypertension; E78.00 Pure hypercholesterolemia, unspecified; F32.9 Major depressive disorder, single episode, unspecified; F41.9 Anxiety disorder, unspecified; F17.200 Nicotine dependence, unspecified, uncomplicated; Z88.2 Allergy status to sulfonamides; Z88.8 Allergy status to other drugs, medicaments and biological substances; Z79.899 Other long term (current) drug therapy
CPT/HCPCS: 80053; 81001; 83690; 83735; 85025; 96374; 96375; 99284-25; J1885; J2405; J7040

== ENCOUNTER 2020-05-26 08:23 | Emergency (ER) | payer OTHER ==
[~2020-05-26] VITALS: Ht 162.6 cm; Wt 75.3 kg
--- OUTSIDE RECORDS SUMMARY | ~2020-05-26 | XMS | Encounter Summary ---
Demographics + + + | Address | [address] | | | [place] [address] | + + + | Home Phone | | + + + | Preferred Language | Unknown | + + + | Marital Status | | + + + | Scientologist Affiliation | 1013 | + + + | Race | White | + + + | Ethnic Group | Not or | + + + Author + + + | Author | [facility] | | | and [place] | + + + | Organization | [facility] | | | and [place] | + + + | Address | Unknown | + + + | Phone | Unavailable | + + + Support + + +---------+ + | Name | Relationship | Address | Phone | + + +---------+ + | Aure Ascencio | ECON | Unknown | | + + +---------+ + Care Team Providers + +------+ + | Care Charge Loader Name | Role | Phone | + +------+ + PCP | Unavailable | + +------+ + Encounter Details +--------+ + + + + | Date | Type | Department | Care Team | Description | +--------+ + + + + | 08/18/ | Hospital | [facility] GENERIC IP | Conversion | Pain | | 2014 | Encounter | CONVERSION DEP [address] | Transaction, | | | | | [address] | Provider Unknown | | | | | [place] | | | | | | [address] | (Fax) | | | | | [phone] | | | +--------+ + + + + Social History + +-------+ +--------+------+ | Tobacco Use | Types | Packs/Day | Years | Date | | | | | Used | | + +-------+ +--------+------+ | Never Assessed | | | | | + +-------+ +--------+------+ + + + | Sex Assigned at | Date Recorded | | | | + + + | Female | | + + + documented as of this encounter Plan of Treatment +--------+---------+ + + + | Date | Type | Specialty | Care Team | Description | +--------+---------+ + + + | 07/01/ | Office | Gastroenterology | Galo Majano, | | | 2019 | Visit | | MUSIC SOUND LIGHT TECHNICIAN [address] | | | | | | [address] [place] | | | | | | [place] [address] | | | | | | [phone] | | | | | | | | +--------+---------+ + + + documented as of this encounter Procedures + +--------+ + + + | Procedure Name | Priori | Date/Time | Associated Diagnosis | Comments | | | ty | | | | + +--------+ + + + | XR CERVICAL SPINE | Routin | 01/05/2014 | | Results for this | | FLEXION AND | e | 10:50 PM | | procedure are in the | | EXTENSION ONLY | | PDT | | results section. | + +--------+ + + + documented in this encounter Results XR CSP Flexion and Extension Only (01/05/2014 10:50 PM PDT) + + | Specimen | + + | | + + + + + | Narrative | Performed At | + + + | This is a non-reportable procedure without a radiologist report and | | | is used for image storage only | | + + + + + | Procedure Note | + + | Magdaleno Michaels - 04/04/2019 6:02 PM PDT This is a non-reportable procedure | | without a radiologist report and isused for image storage only | + + documented in this encounter Visit Diagnoses + + | Diagnosis | + + | Pain Generalized pain | + + documented in this encounter"
--- OUTSIDE RECORDS SUMMARY | ~2020-05-26 | XMS | Encounter Summary ---
Demographics + + + | Address | [address] | | | [place] [address] | + + + | Home Phone | | + + + | Preferred Language | Unknown | + + + | Marital Status | | + + + | Pentecostal Affiliation | 1013 | + + + | Race | White | + + + | Ethnic Group | Not or | + + + Author + + + | Author | [facility] | | | and [place] | + + + | Organization | [facility] | | | and [...] Team Providers + +------+ + | Care Mold Capper Helper Name | Role | Phone | + +------+ + | Karla Payan PA-C | PCP | | + +------+ + Reason for Visit + +--------+ + | Reason | Onset | Comments | | | Date | | + +--------+ + | Medication Question | 04/30/ | | | | 2020 | | + +--------+ + Encounter Details +--------+ + + + + | Date | Type | Department | Care Team | Description | +--------+ + + + + | 04/30/ | Telephone | [facility] | Galo Majano, | Medication Question | | 2019 | | GASTROENTEROLOGY | WHARF LABOURER [address] | | | | | [address] | [address] [place] | | | | | [address] [place], [place] | [facility] [place] [address] | | | | | [address] | [phone] | | | | | [phone] | | | +--------+ + + + + Social History + +-------+ +--------+------+ | Tobacco Use | Types | Packs/Day | Years | Date | | | | | Used | | + +-------+ +--------+------+ | Current Every Day | | 0.5 | | | | Smoker | | | | | + +-------+ +--------+------+ + +---+---+---+ | Smokeless Tobacco: | | | | | Never Used | | | | + +---+---+---+ + + | Comments: 1 10/d x 40+ yrs, now 2 cigarettes daily | + + + + +---------+ + | Alcohol Use | Drinks/Week | oz/Week | Comments | + + +---------+ + | Yes | | | Alcohol beer, | | | | | whiskey rarely | + + +---------+ + + + + | Sex Assigned at | Date Recorded | | | | + + + | Female | 03/31/2020 1:19 PM PDT | + + + documented as of this encounter Miscellaneous Notes Telephone Encounter - Soha Topete Oil Tank Car Cleaner - 04/30/2020 11:23 AM PDTLVM for bl[place]ne [place] to return my call. Returned patients call. elephone Encounter - Aziza Clinton CMA - 04/30/20 11:20 AM PDTReturned patients call, she states her medication list is incorrect, she take s her Baclofen one tablet at night, our chart states she takes it three times daily. Updated her med list to show she takes it once at night. She is also instructed to contact her PCP' s office to verify that this is correct, since her PCP is the prescribing provider.Schuyler lopez signed by Aziza Clinton CMA at 04/30/2020 11:25 AM PDTTelephone Encounter - Grace Hawley - 04/30/2020 9:03 AM PDTName of Caller: magi mathew Name of Patient: magi mathew Reason for call: questions regarding medications, patient was just recently in on 04/28 to see Galo Provider/Nurse: Soha Call back number: [phone] signed by Grace Hawley at 04/30/2020 9: 06 AM PDTdocumented in this encounter Plan of Treatment +--------+---------+ + + + | Date | Type | Specialty | Care Team | Description | +--------+---------+ + + + | 07/01/ | Office | Gastroenterology | Galo Majano, | | | 2019 | Visit | | WHARF LABOURER [address] | | | | | | [address] [place] | | | | | | [place] [address] | | | | | | [phone] | | | | | | | | +--------+---------+ + + + documented as of this encounter Visit Diagnoses Not on filedocumented in this encounter"
--- OUTSIDE RECORDS SUMMARY | ~2020-05-26 | XMS | Encounter Summary ---
Demographics + + + | Address | [address] | | | [place] [address] | + + + | Home Phone | | + + + | Preferred Language | Unknown | + + + | Marital Status | | + + + | Mormon Affiliation | 1013 | + + + | Race | White | + + + | Ethnic Group | Not or | + + + Author + + + | Author | [facility] | | | and [place] | + + + | Organization | [facility] | | | and [...] Team Providers + +------+ + | Care Human Resources Recruiter Name | Role | Phone | + +------+ + PCP | Unavailable | + +------+ + Reason for Visit + + + | Reason | Comments | + + + | Knee Pain | | + + + Encounter Details +--------+---------+ + + + | Date | Type | Department | Care Team | Description | +--------+---------+ + + + | 02/13/ | Office | [facility] | Lauri Malave, | Patellofemoral | | 2019 | Visit | [address] | MD [address] | arthritis of right | | | | [address] [place], [place] | [address] [place] | knee (Primary Dx); | | | | [address] | [address] | Acute medial | | | | [phone] | | meniscus tear of | | | | | | right knee, initial | | | | | | encounter | +--------+---------+ + + + Social History + +-------+ [...] + + documented as of this encounter Patient Instructions Patient Instructions Lauri Malave MD - 02/13/2019 8:00 AM PDTI discussed the findings, diagnosis and the treatment recommendations with the patient. documented in this encounter Progress Notes Lauri Malave MD - 04/01/2019 1:57 PM PDTFormatting of this note might be different fro m the original. RICO SPARKS : 1955 [facility] MR#: [id number] [facility] MR#: February 13, 2019 History of Present Illness: Rico is well known to me. He comes in today for evaluation of his right knee. He has known arthritis but has some degenerative meniscus tears. He st ates that he was considering possibly an arthroscopy but then was wondering if there were so me other options for him as well. He is getting some pain both anterior and anteromedially. Past Medical History: Per his data intake form. 1. Asthma. 2. Hypertension. 3. Neuroma. 4. Spinal stenosis. Past Surgical History: 1. ACL reconstructions bilaterally. 2. Arthroplasty of his left knee. 3. Foot surgery. 4. Shoulder surgery. 5. Vein surgery. 6. Spine surgery. Current Medications: He is currently on: 1. Ventolin. 2. Tenormin. 3. Voltaren gel. 4. Flonase. 5. Zyrtec. 6. Tylenol. Allergies: 1. Cephalexin. 2. Codeine. 3. Latex. 4. Penicillin. 5. Adhesive tapes. Family History: 1. Asthma. 2. Hypertension. 3. Gout. Social History: He does not smoke or drink. Physical Examination: He is 5 feet 6 inches tall and weighs about 200 pounds. Alert and o riented x3. Normal affect and generalized healthy appearance. He has some varus. He has s ome patellofemoral crepitus. He lacks about 3 or 4 of extension and flexes to approxima tely 120. He has a little bit of medial joint line tenderness but negative Nohemy's. N ormal neurovascular examination. Impression: Arthritis of the right knee. Plan: I realize he has a degenerative medial meniscus tear, but at this point, I think we should try a cortisone injection for his arthritis. He was in agreement and wanted to proce ed. He understood the risks of infection and facial flushing. Procedure: Under sterile conditions, I injected the knee through a lateral approach with 3 mL of 1% lidocaine followed by 40 mg of Kenalog. He tolerated procedure well. We talked about the importance of keeping weight down and low-impact exercises. Lauri Malave M.D. This document has been authenticated but not proofread [id number] signed by Lauri Malave MD at 04/01/2019 3:06 PM P Lauri Vences MD - 02/13/2019 8:00 AM PDTThis note has been dictated. Lauri May MD - 02/13/2019 7:57 AM PDT RICO SPARKS : 1955 [facility] MR#: [id number] [facility] MR#: February 13, 2019 History of Present Illness: Rico comes in today for followup on his right knee. He saw Dr. Knutson earlier this year. Dr. Knutson did a cortisone injection for presumed patellofem oral arthritis. It gave him a little bit of relief, but Rico it has been back doing a lo t of golfing and states now his pain is aggravated. It is kind of in the anteromedial aspec t of his knee. Rico knows that he had a little degenerative medial meniscus tear and govind lly think the meniscus may be the cause of his problem. He has pain going up and down hills and when he twists playing golf. He has not had much swelling. Physical Examination: He has mild patellofemoral crepitus. No effusion. No varus or valg us laxity. Solid Zeynep's. No posterior drawer. A little bit of anteromedial joint line tenderness. No posteromedial joint line tenderness. Negative Nohemy's. No lateral joint line tenderness. Impression: Degenerative medial meniscus tear and arthritis of the patellofemoral joint. Plan: We had a long discussion regarding his knee, and I told him that I really think the main problem is probably the patellofemoral arthritis; however, he is quite adamant he thoug ht arthroscopic clean up would be indicated at some point in time, potentially after the gol f season. I think we should try a cortisone injection and then as a last resort, possibly c onsider arthroscopy, although it is not predictable at all. He wanted to proceed with corti sone. He understood the risks of infection. Procedure: Under sterile conditions, I injected the knee through a lateral approach with 3 mL of 1% lidocaine followed by 40 mg of Kenalog. He tolerated the procedure well. Lauri Malave M.D. This document has been authenticated but not proofread [id number] signed by Lauri Malave MD at 02/13/2019 10:11 AM P DTdocumented in this encounter Plan of Treatment +--------+---------+ + + + | Date | Type | Specialty | Care Team | Description | +--------+---------+ + + + | 07/01/ | Office | Gastroenterology | Galo Majano, | | | 2019 | Visit | | FOREST MANAGEMENT PROFESSOR [address] | | | | | | [facility] | | | | | | [place] [address] | | | | | | [phone] | | | | | | | | +--------+---------+ + + + documented as of this encounter Visit Diagnoses + + | Diagnosis | + + | Patellofemoral arthritis of right knee - Primary | + + | Acute medial meniscus tear of right knee, initial encounter | + + documented in this encounter Administered Medications + +--------+ +-------+------+------+ | Medication Order | MAR | Action | Dose | Rate | Site | | | Action | Date | | | | + +--------+ +-------+------+------+ | triamcinolone acetonide | Given | 02/14/20 | 40 mg | | | | (KENALOG-40) 40 mg/mL injection | | 19 7:59 | | | | | 40 mg 40 mg, Intra-articular, | | AM PDT | | | | | ONCE, [facility] 02/13/19 at 0815, For 1 | | | | | | | dose, Shake well. Not for IV | | | | | | | use., | | | | | | + +--------+ +-------+------+------+ +---+---+ | | | +---+---+ documented in this encounter"
--- OUTSIDE RECORDS SUMMARY | ~2020-05-26 | XMS | Encounter Summary ---
Demographics + + + | Address | [address] | | | [place] [address] | + + + | Home Phone | | + + + | Preferred Language | Unknown | + + + | Marital Status | | + + + | Yazidi Affiliation | 1013 | + + + | Race | White | + + + | Ethnic Group | Not or | + + + Author + + + | Author | [facility] | | | and [place] | + + + | Organization | [facility] | | | [...] Team Providers + +------+ + | Care Oil Pipeline Dispatcher Name | Role | Phone | + +------+ + | Karla Payan PA-C | PCP | | + +------+ + Reason for Visit +--------+--------+ + | Reason | Onset | Comments | | | Date | | +--------+--------+ + | Other | 04/28/ | | | | 2020 | | +--------+--------+ + Encounter Details +--------+ + + + + | Date | Type | Department | Care Team | Description | +--------+ + + + + | 04/28/ | Telephone | [facility] | MelecioBrianGalo Berto, | Other | | 2020 | | GASTROENTEROLOGY | SKIVER MACHINE OPERATOR [address] | | | | | [address] | [address] [place] | | | | | [address] [place], [place] | [place] [address] | | | | | [address] | [phone] | | | | | [phone] | | | +--------+ + + + [...] Miscellaneous Notes Telephone Encounter - Soha Topete Resistor Coater - 04/29/2020 8:35 AM PDTOr[facility] d [facility] [place] Patient notified. elephone Encounter - Grace Hawley - 04/28/2020 3:36 PM PDTPatient called and stated her orders for her stool sample were not sent to [facility], patient would like to complete this today. Patients phone [phone] tronically signed by Grace Hawley at 04/28/2020 3:43 PM PDTdocumented in this encount er Plan of Treatment +--------+---------+ + + + | Date | Type | Specialty | Care Team | Description | +--------+---------+ + + + | 07/01/ | Office | Gastroenterology | Galo Majano, | | 2019 | Visit | | SKIVER MACHINE OPERATOR [address] | | | | | | [place] | | | | | | [place] [address] | | | | | | [phone] | | | | | | | | +--------+---------+ + + + documented as of this encounter Visit Diagnoses Not on filedocumented in this encounter"
--- OUTSIDE RECORDS SUMMARY | ~2020-05-26 | XMS | Encounter Summary ---
Demographics + + + | Address | [address] | | | [place] [address] | + + + | Home Phone | | + + + | Preferred Language | Unknown | + + + | Marital Status | | + + + | Catholic Affiliation | 1013 | + + + | Race | White | + + + | Ethnic Group | Not or | + + + Author + + + | Author | [facility] | | | and [place] | + + + | Organization | [facility] | | | and [...] Team Providers + +------+ + | Care Local Company Truck Driver Name | Role | Phone | + +------+ + | Karla Payan PA-C | PCP | | + +------+ + Encounter Details +--------+ + + + + | Date | Type | Department | Care Team | Description | +--------+ + + + + | 04/12/ | Orders Only | [facility] [place] | Galo Majano, | | | 2019 | | GASTROENTEROLOGY | SEO TEAM LEAD [address] | | | | | [address] | [address] [place] | | | | | [address] [place], [place] | [place] [address] | | | | | [address] | [phone] | | | | | [phone] | | | +--------+ + + + [...] | | 2019 | Visit | | SEO TEAM LEAD [address] | | | | | | [address] [place] | | | | | | [place] [address] | | | | | | [phone] | | | | | | | | +--------+---------+ + + + documented as of this encounter Visit Diagnoses Not on filedocumented in this encounter"
--- OUTSIDE RECORDS SUMMARY | ~2020-05-26 | XMS | Encounter Summary ---
Demographics + + + | Address | [address] | | | [place] [address] | + + + | Home Phone | | + + + | Preferred Language | Unknown | + + + | Marital Status | Single | + + + | Yarsani Affiliation | Unknown | + + + | Race | White | + + + | Ethnic Group | Not or | + + + Author + + + | Author | [facility] | + + + | Organization | [facility] | + + + | Address | Unknown | + + + | Phone | Unavailable | + + + Support + + + + + | Name | Relationship | Address | Phone | + + + + + | Kaila Ascencio | JOEY | [place] | | | | | [address] | | + + + + + Care Team Providers + +------+ + | Care Behaviorist Name | Role | Phone | + +------+ + PCP | Unavailable | + +------+ + Encounter Details +--------+ + + + + | Date | Type | Department | Care Team | Description | +--------+ + + + + | 01/20/ | Office | [facility] | Note, [...] on file | | + + + documented as of this encounter Progress Notes Interface, Metal Drill Operator In - 08/08/2006 1:08 AM PSTCLINIC DATE: 01/20/1999 ADULT UROLOGY CLINIC SUBJECTIVE: Ms. Gómez returns to clinic today for evaluation of her wound. 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 She had an uneventful recovery and was discharged home five days ago. Last night she noted drainage from the wound. She sought care at the emergency room in [place], [place] where she was started on antibiotics. She presented to clinic today for evaluation. Since discharge the patient denies nausea and vomiting, she has had no fever or chills. She is tolerating a general diet and in generally is feeling better. OBJECTIVE: On examination of the wound, the skin edges are intact. At the posterior aspect, the dermis was uneven and overlying the epidermis. There was a mild amount of fat necrosis but no evidence of wound infection. There was no purulent drainage, no erythema and no tenderness. Again, the skin edges were intact along the entire length of the wound. ASSESSMENT: Fat necrosis secondary to dermal edges that were not equally approximated. PLAN: The Steri-Strips were removed. Dry dressing changes as needed. Follow up with her primary doctor in [place], [place]. Bridger Gonzalez M.D. Keshav Prado M.D. DORIS/niraj cc: ARLENE WEST DO [address] [facility] [id number] signed by Interface, Metal Drill Operator In at 08/08/2006 1 :08 AM PSTdocumented in this encounter Plan of Treatment Not on filedocumented as of this encounter Visit Diagnoses Not on filedocumented in this encounter"
--- OUTSIDE RECORDS SUMMARY | ~2020-05-26 | XMS | Encounter Summary ---
Demographics + + + | Address | [address] | | | [place] [address] | + + + | Home Phone | | + + + | Preferred Language | Unknown | + + + | Marital Status | | + + + | Christian Affiliation | 1013 | + + + | Race | White | + + + | Ethnic Group | Not or | + + + Author + + + | Author | [facility] | | | and [place] | + + + | Organization | [facility] | | [...] Providers + +------+ + | Care Medical Imaging Director Name | Role | Phone | + +------+ + | Karla Payan PA-C | PCP | | + +------+ + Reason for Visit + +--------+ + | Reason | Onset | Comments | | | Date | | + +--------+ + | Patient Concerns | 05/20/ | | | | 2020 | | + +--------+ + Encounter Details +--------+ + + + + | Date | Type | Department | Care Team | Description | +--------+ + + + + | 05/20/ | Telephone | [facility] | Galo Majano, | Patient Concerns | | 2020 | | GASTROENTEROLOGY | FELT TIPPING MACHINE TENDER [address] | | | | | [address] | [address] [place] | | | | | [address] [place], [place] | [place] [address] | | | | | [address] | [phone] | | | | | [phone] | | | +--------+ + + + [...] Miscellaneous Notes Telephone Encounter - Soha Topete Medical Assistant - 05/20/2020 2:10 PM PDTPer Galo. Black stool are normal when taking Bismuth. Galo want her to continue with medication for h er loose stools, and to follow up with him next month after her H.pylori breath test. Electr onically signed by Juan Antonio Lopez at 05/20/2020 2:12 PM PDTTelephone Encou nter - Soha Topete Medical Assistant - 05/20/2020 10:51 AM PDTPatient called to let Galo know that she has had 3 black firm stools. Patient is taking Bismuth 8 times daily. Patient denied having any pain. She is worried about her black stools, since she has never had this issue before. documented in this encounter Plan of Treatment +--------+---------+ + + + | Date | Type | Specialty | Care Team | Description | +--------+---------+ + + + | 07/01/ | Office | Gastroenterology | Galo Majano, | | 2019 | Visit | | FELT TIPPING MACHINE TENDER [address] | | | | | | [address] [place] | | | | | | [place] [address] | | | | | | [phone] | | | | | | | | +--------+---------+ + + + documented as of this encounter Visit Diagnoses Not on filedocumented in this encounter"
--- OUTSIDE RECORDS SUMMARY | ~2020-05-26 | XMS | Clinical Summary ---
Demographics + + + | Address | [address] | | | [place] [address] | + + + | Home Phone | | + + + | Preferred Language | Unknown | + + + | Marital Status | | + + + | Taoist Affiliation | 1013 | + + + | Race | White | + + + | Ethnic Group | Not or | + + + Author + + + | Author | [facility] | | | and [place] | + + + | Organization | [facility] | | | [...] Team Providers + +------+ + | Care Backend Developer Name | Role | Phone | + +------+ + | Karla Payan PA-C | PCP | | + +------+ + Allergies + + + + + + | Active Allergy | Reactions | Severity | Noted | Comments | | | | | Date | | + + + + + + | Metformin | Diarrhea, Nausea And | Low | 03/24/20 | Reaction: Nausea, | | | Vomiting, Other | | 20 | vomiting, diarrhea , | | | (See Comments) | | | urinary retention, | | | | | | edema | + + + + + + | Atorvastatin | Nausea And Vomiting | Low | 03/24/20 | | | | | | 20 | | + + + + + + | Lisinopril | Diarrhea, Nausea And | Low | 03/24/20 | | | | Vomiting | | 20 | | + + + + + + | Sulfa Antibiotics | Hives, Rash | Medium | 10/01/19 | | | | | | 15 | | + + + + + + | Adhesive & Tape | Other (See Comments) | Low | 04/21/20 | "Skin comes off | | | | | 20 | with the adhesive on | | | | | | band aids" | + + + + + + Medications + + + +---------+------+------+-------+ | Medication | Sig | Dispensed | Refills | Star | End | Statu | | | | | | t | Date | s | | | | | | Date | | | + + + +---------+------+------+-------+ | Probiotic Product | Take 1 tablet by | | 0 | | | Activ | | (TRIPLE PROBIOTIC | mouth Daily. | | | | | e | | PO) | | | | | | | + + + +---------+------+------+-------+ | TGT PSYLLIUM FIBER | Take 3 tablets by | | 0 | | | Activ | | PO | mouth Daily. | | | | | e | + + + +---------+------+------+-------+ | buPROPion | Take 150 mg by mouth | | 0 | | | Activ | | (WELLBUTRIN SR) 150 | 2 times daily. | | | | | e | | mg 12 hr tablet | | | | | | | + + + +---------+------+------+-------+ | doxycycline | Take 100 mg by mouth | | 0 | | | Activ | | (MONODOX) 100 mg | 2 times daily. | | | | | e | | capsule | | | | | | | + + + +---------+------+------+-------+ | | Take 25 mg by mouth | | 0 | | | Activ | | hydroCHLOROthiazide | Daily. | | | | | e | | 25 mg tablet | | | | | | | + + + +---------+------+------+-------+ | loratadine | Take 10 mg by mouth | | 0 | | | Activ | | (CLARITIN) 10 mg | Daily. | | | | | e | | tablet | | | | | | | + + + +---------+------+------+-------+ | losartan (COZAAR) | Take 100 mg by mouth | | 0 | | | Activ | | 100 MG tablet | Daily. | | | | | e | + + + +---------+------+------+-------+ | atenolol | Take 100 mg by mouth | | 0 | | | Activ | | (TENORMIN) 100 MG | Daily. | | | | | e | | tablet | | | | | | | + + + +---------+------+------+-------+ | baclofen | Take 10 mg by mouth | | 0 | | | Activ | | (LIORESAL) 10 mg | nightly . | | | | | e | | tablet | | | | | | | + + + +---------+------+------+-------+ | | Take by mouth. | | 0 | | | Activ | | [id number] | | | | | | e | | INC [phone] MG | | | | | | | | TABS | | | | | | | + + + +---------+------+------+-------+ | fluticasone | 1 spray by Nasal | | 0 | | | Activ | | (FLONASE) 50 | route Daily. | | | | | e | | mcg/nasal spray | | | | | | | + + + +---------+------+------+-------+ | cholecalciferol | Take 25 mcg by mouth | | 0 | | | Activ | | (VITAMIN D-3) 25 mcg | Daily. | | | | | e | | (1,000 units) | | | | | | | | tablet | | | | | | | + + + +---------+------+------+-------+ | clindamycin | apply topically to | | 0 | 06/2 | | Activ | | (CLEOCIN T) 1% | affected area twice | | | 3/20 | | e | | external solution | a day | | | 20 | | | + + + +---------+------+------+-------+ | nicotine | apply 1 patch | | 0 | 06/0 | | Activ | | (NICODERM) 7 mg/24 | topically once daily | | | 1/20 | | e | | hr | as directed | | | 20 | | | + + + +---------+------+------+-------+ | pravastatin | Take 40 mg by mouth | | 0 | | | Activ | | (PRAVACHOL) 40 MG | nightly. | | | | | e | | tablet | | | | | | | + + + +---------+------+------+-------+ | Loperamide HCl | Take by mouth. | | 0 | | | Activ | | (IMODIUM PO) | | | | | | e | + + + +---------+------+------+-------+ | Ferrous Sulfate | Take 1 tablet by | | 0 | | | Activ | | (IRON PO) | mouth Daily. | | | | | e | + + + +---------+------+------+-------+ | [place]-3 Fatty | Take 1 tablet by | | 0 | | | Activ | | Acids (FISH OIL PO) | mouth Daily. | | | | | e | + + + +---------+------+------+-------+ | B Complex Vitamins | Take 1 tablet by | | 0 | | | Activ | | (B COMPLEX PO) | mouth Daily. | | | | | e | + + + +---------+------+------+-------+ | colestipol | Take 1 g by mouth 2 | | 0 | | | Activ | | (COLESTID) 5 g | times daily . | | | | | e | | packet | | | | | | | + + + +---------+------+------+-------+ | omeprazole | Take 20 mg by mouth | | 0 | | 09/0 | Disco | | (PRILOSEC) 20 mg | every morning | | | | 9/20 | ntinu | | capsule | (before breakfast). | | | | 20 | ed | + + + +---------+------+------+-------+ | bismuth | Chew and swallow 2 | 112 | 0 | 09/0 | 09/2 | Expir | | subsalicylate (PEPTO | tablets 4 times | tablet | | 05/09 | 11/06 | ed | | BISMOL) 262 mg | daily (before meals | | | 20 | 20 | | | chewable tablet | and nightly) for 14 | | | | | | | | days. | | | | | | + + + +---------+------+------+-------+ | metroNIDAZOLE | Take 1 tablet by | 28 | 0 | 09/0 | 09/2 | Expir | | (FLAGYL) 500 MG | mouth 2 times daily | tablet | | / | 320 | ed | | tablet | for 14 days. | | | 20 | 20 | | + + + +---------+------+------+-------+ | tetracycline | Take 1 capsule by | 56 | 0 | 09/0 | 09/2 | Expir | | (ACHROMYCIN,SUMYCIN) | mouth 4 times daily | capsule | | 9/20 | 3/20 | ed | | 500 MG capsule | for 14 days. | | | 20 | 20 | | + + + +---------+------+------+-------+ | omeprazole | Take 1 capsule by | 28 | 0 | 09/0 | 04/21 | Expir | | (PRILOSEC) 20 mg | mouth 2 times daily | capsule | | /20 | 3/20 | ed | | capsule | (before meals) for | | | 20 | 20 | | | | 14 days. | | | | | | + + + +---------+------+------+-------+ Active Problems + + + | Problem | Noted Date | + + + | Diarrhea, unspecified type | 04/16/2020 | + + + + + | Overview: Added automatically from request for surgery | | [id number] | + + + + + | LFT elevation | 04/16/2020 | + + + + + | Overview: Added automatically from request for surgery | | [id number] | + + + + + | Cervical radicular pain | 10/01/2014 | + + + + + | Overview: Last Assessment & Plan: This patient's symptoms | | started in 2013 without injury or trauma. The most severe pain | | she had was in May when her boyfriend was fighting cancer and | | . Her pain over the past week has significant | | improved. She reports minimal neck pain, but the majority | | complaint is arm numbness and tingling and pain. She denies any | | bowel/bladder dysfunction. She denies any cervicogenic | | headaches. She has tried NSAIDs, Wellbutrin and a steroid pack. | | She had a cervical MRI that showed a mild broad based disk | | bulges at C5-6 Combined with facet hypertrophy contributes to | | severe bilateral foraminal narrowing. Broad based disk bulge | | with posterior ligament calcifications contributing to left | | foraminal narrowing. At this time her symptoms have mostly | | resolved. She is going to continue with conservative measures | | for now, however if her symptoms return, then she will call the | | office. Her symptoms are most likely due to the disk bulge at | | C5-6 and C6-7. Would probably proceed with a C7-T1 cervical | | epidural steroid injection under fluoroscopic guidance. We also | | discussed other treatment options, including physical therapy, | | gabapentin, NSAIDs, acupuncture, chiropractic, massage.Plan, | | alternatives, risks and potential benefits of the procedure were | | explained to the patient in great detail. The patient | | understands that there is no guarantee they will get pain relief | | with this procedure. They also understand that if they do get | | pain relief that there is no way to know how long it will last. | | They also understand there is a risk to the procedure itself | | which includes but are not limited to infection, abscess, | | hematoma, nerve damage, paraplegia or quadriplegia, increased | | pain, spinal headache, stroke, and side effects from the | | medications themselves. The patient wishes to proceed. | + + + + + | DDD (degenerative disc disease), cervical | 10/01/2014 | + + + + + | Overview: bulge at C5-6 and C6-7. 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 | 10/01/2014 | | region | | + + + + + | Overview: Last Assessment & Plan: | | Please see discussion under cervical radicular pain | + + + +---+ | HTN (hypertension) | | + +---+ | SHIRIN/ARB Inhibitors - Daily Use | | + +---+ | GERD (gastroesophageal reflux disease) | | + +---+ | Beta Blockers - Daily Use | | + +---+ | Diverticulosis | | + +---+ + + | Overview: 02/2020 colonoscopy with findings of diverticulosis, | | internal hemorrhoids | + + Encounters +--------+ + + + + | Date | Type | Specialty | Care Team | Description | +--------+ + + + + | 05/25/ | Telephone | Gastroenterology | Chele Lynn | Appointment Question | | 2019 | | | MD Scott | | +--------+ + + + + | 05/20/ | Telephone | Gastroenterology | Galo Majano, | Patient Concerns | | 2020 | | | HAZARDOUS MATERIALS ANALYST | | +--------+ + + + + | 05/14/ | Telephone | Gastroenterology | Galo Majano, | Medication Question | | 2020 | | | HAZARDOUS MATERIALS ANALYST | | +--------+ + + + + | 05/03/ | Telephone | Gastroenterology Galo Anderson, | Other | | 2019 | | | HAZARDOUS MATERIALS ANALYST | | +--------+ + + + + | 04/30/ | Telephone | Gastroenterology | Galo Majano, | Medication Question | | 2020 | | | HAZARDOUS MATERIALS ANALYST | | +--------+ + + + + | 04/28/ | Office | Gastroenterology | Galo Majano, | Helicobacter pylori | | 2019 | Visit | | HAZARDOUS MATERIALS ANALYST | infection (Primary | | | | | | Dx); | | | | | | Gastroesophageal | | | | | | reflux disease with | | | | | | esophagitis; | | | | | | Duodenitis | | | | | | determined by | | | | | | biopsy; Diarrhea, | | | | | | unspecified type; | | | | | | LFTs abnormal | +--------+ + + + + | 04/28/ | Telephone | Gastroenterology | Galo Majano, | Other | | 2019 | | | HAZARDOUS MATERIALS ANALYST | | +--------+ + + + + | 04/22/ | Surgery | | Chele Lynn | EGD | | 2019 | | | MD Scott | | +--------+ + + + + | 04/22/ | Hospital | | Chele Lynn | Diarrhea, | | 2019 | Encounter | | MD Scott | unspecified type; | | | | | | LFT elevation | +--------+ + + + + | 04/19/ | Hospital | Urgent Care | | Preop testing | 2019 | Encounter | | | (Primary Dx) | +--------+ + + + + | 04/19/ | Telephone | Gastroenterology | Galo Majano, | Diarrhea (extremely | 2019 | | | HAZARDOUS MATERIALS ANALYST | loose stools with | | | | | | change in | | | | | | medication) | +--------+ + + + + | 04/14/ | Telephone | Gastroenterology | Chele Lynn | Testing (COVID) | 2019 | | | MD Scott | | +--------+ + + + + | 04/12/ | Orders Only | Gastroenterology | Galo Majano, | | | 2019 | | | HAZARDOUS MATERIALS ANALYST | | +--------+ + + + + | 04/12/ | Telephone | Gastroenterology | Galo Majano, | Other (medication ) | | 2019 | | | HAZARDOUS MATERIALS ANALYST | | +--------+ + + + + | 04/01/ | Office | Gastroenterology | Galo Majano, | Diarrhea, | | 2019 | Visit | | HAZARDOUS MATERIALS ANALYST | unspecified type | | | | | | (Primary Dx); LFT | | | | | | elevation; | | | | | | Hypokalemia | +--------+ + + + + | 03/30/ | Abstract | Gastroenterology | Provider, | | | 2019 | | | MD Giana | | +--------+ + + + + | 03/24/ | Abstract | Gastroenterology | Provider, | | | 2020 | | | Historical, MD | | +--------+ + + + + from Last 3 Months Family History + + +------+ + | Medical History | Relation | Name | Comments | + + +------+ + | Cancer | Father | | Bladder cancer | + + +------+ + | Heart disease | Father | | | + + +------+ + | Stroke | Father | | | + + +------+ + | Cataracts | Mother | | | + + +------+ + | Hypertension | Mother | | | + + +------+ + | Crohn's disease | Son | | | + + +------+ + + +------+ + + | Relation | Name | Status | Comments | + +------+ + + | Father | | | | + +------+ + + | Mother | | Alive | | + +------+ + + | Son | | | | + +------+ + + Social [...] 1:19 PM PDT | + + + Last Filed Vital [...] | | + + + + + Plan of Treatment +--------+---------+ + + + | Date | Type | Specialty | Care Team | Description | +--------+---------+ + + + | 07/01/ | Office | Gastroenterology | Galo Majano, | | | 2019 | Visit | | HAZARDOUS MATERIALS ANALYST [address] | | | | | | [address] | | | | | | [place] [address] | | | | | | [phone] | | | | | | | | +--------+---------+ + + + + + + + + | Health Maintenance | Due Date | Last | Comments | | | | Done | | + + + + + | Med Mgmt: Vit D | | | | | | 5 | | | + + + + + | Medication | | | | | Management | 5 | | | + + + + + | Vaccine: | | 04/08/20 | | | Dtap/Tdap/Td (1 - | 4 | 02 | | | Tdap) | | | | + + + + + | Breast Cancer | | | | | Screening | 0 | | | + + + + + | Adult Annual | | | | | Wellness Visit | 9 | | | + + + + + | Vaccine: | | | | | Pneumococcal 65+ (1 | 0 | | | | of 1 - PPSV23) | | | | + + + + + | Med Mgmt: Cr | | 01/05/20 | | | | 1 | 20, | | | | | 01/05/20 | | | | | 20 | | + + + + + | Med Mgmt: K | | 01/05/20 | | | | 1 | 20, | | | | | 01/05/20 | | | | | 20 | | + + + + + | Med Mgmt: Na | | 01/05/20 | | | | 1 | 20, | | | | | 01/05/20 | | | | | 20 | | + + + + + | Colorectal Cancer | | 09/26/19 | | | Screening | 2 | 12, | | | (Colonoscopy) | | 08/20/19 | | | | | 12 | | + + + + + | Vaccine: Zoster | Completed | 03/11/20 | | | | | 19, | | | | | 04/17/20 | | | | | 18, | | | | | 06/22/20 | | | | | 15 | | + + + + + | Hepatitis C | Completed | 12/22/19 | | | Screening | | 20 | | + + + + + | Vaccine: Influenza | Completed | 04/07/20 | | | | | 20, | | | | | 06/05/20 | | | | | 19, | | | | | 04/17/20 | | | | | 18, | | | | | Addition | | | | | al | | | | | history | | | | | exists | | + + + + + Procedures + +--------+ + + + | Procedure Name | Priori | Date/Time | Associated Diagnosis | Comments | | | ty | | | | + +--------+ + + + | LABS - EXTERNAL SCAN | | 04/30/2020 | | Results for this | | | | 12:00 AM | | procedure are in the | | | | PDT | | results section. | + +--------+ + + + | LABS - EXTERNAL SCAN | | 04/30/2020 | | Results for this | | | | 12:00 AM | | procedure are in the | | | | PDT | | results section. | + +--------+ + + + | EGD | | 04/22/2020 | Diarrhea, | | | | | 9:57 AM | unspecified type | | | | | PDT | LFT elevation | | + +--------+ + + + | *TERMED* CT UPPER GI | Routin | 04/22/2020 | | Results for this | | ENDOSCOPY,EXAM | e | 9:47 AM | | procedure are in the | | | | PDT | | results section. | + +--------+ + + + | SURGICAL PATHOLOGY | Routin | 04/22/2020 | | Results for this | | EXAM | e | 12:00 AM | | procedure are in the | | | | PDT | | results section. | + +--------+ + + + | LABS - EXTERNAL SCAN | | 04/20/2020 | | Results for this | | | | 12:00 AM | | procedure are in the | | | | PDT | | results section. | + +--------+ + + + | LABS - EXTERNAL SCAN | | 04/20/2020 | | Results for this | | | | 12:00 AM | | procedure are in the | | | | PDT | | results section. | + +--------+ + + + | CORONAVIRUS | Routin | 04/19/2020 | Preop testing | Results for this | | (COVID-19) NAAT | e | 8:50 AM | | procedure are in the | | | | PDT | | results section. | + +--------+ + + + | LABS - EXTERNAL SCAN | | 03/26/2020 | | Results for this | | | | 12:00 AM | | procedure are in the | | | | PDT | | results section. | + +--------+ + + + | PATHOLOGY - EXTERNAL | | 03/10/2020 | | Results for this | | SCAN | | 12:00 AM | | procedure are in the | | | | PDT | | results section. | + +--------+ + + + | DIAGNOSTIC REPORT - | | 03/09/2020 | | Results for this | | EXTERNAL SCAN | | 12:00 AM | | procedure are in the | | | | PDT | | results section. | + +--------+ + + + | DIAGNOSTIC REPORT - | | 03/09/2020 | | Results for this | | EXTERNAL SCAN | | 12:00 AM | | procedure are in the | | | | PDT | | results section. | + +--------+ + + + from Last 3 Months Results LABS - EXTERNAL SCAN (04/30/2020 12:00 AM PDT)Only the most recent of 5 results within the time period is included. + + + | Narrative | Performed At | + + + | Ordered by an | | | unspecified provider. | | + + + EGD (04/22/2020 9:47 AM PDT) + + | Specimen | + + | | + + + + + | Narrative | Performed At | + + + | [facility] | [facility] | | [facility] CenterGastroenterologyPatient Name: Magi Gómez | [facility] | | S.Procedure Date: 04/22/2020 9:47 AMMRN: [id number] Number: | | | [id number] of : 1955Note Status: FinalizedAttending MD: | | | LUÍS DAVISONrocedure Type: Upper GI | | | endoscopyIndications: Abdominal bloating, | | | DiarrheaProviders: CHELE LYNN MD, | | | Nola Vieira RN, Claudia | | | ISRAEL Rivera, Toby Palmer, TechnicianRefrudy MD: | | | Karla Payan (Referring MD), Galo Majano | | | (Referring MD)Medicines: Fentanyl | | | 125 micrograms IV, Midazolam 6 mg IV, | | | Benzocaine sprayComplications: No immediate | | | complications.Procedure: Pre-Anesthesia Assessment: - | | | Prior to the procedure, a History and Physical was performed, and | | | patient medications and allergies were reviewed. The patient is | | | competent. The risks and benefits of the procedure and the | | | sedation options and risks were discussed with the patient. All | | | questions were answered and informed consent was obtained. | | | Patient identification and proposed procedure were verified by | | | the physician and the nurse in the pre-procedure area in the | | | procedure room. Mental Status Examination: alert and oriented. | | | Airway Examination: Mallampati Class II (the uvula but not | | | tonsillar pillars visualized). Respiratory Examination: clear to | | | auscultation. CV Examination: normal. Prophylactic Antibiotics: The | | | patient does not require prophylactic antibiotics. Prior | | | Anticoagulants: The patient has taken no previous anticoagulant | | | or antiplatelet agents. ASA Grade Assessment: II - A patient | | | with mild systemic disease. After reviewing the risks and | | | benefits, the patient was deemed in satisfactory condition to | | | undergo the procedure. The anesthesia plan was to use moderate | | | sedation / analgesia (conscious sedation). Immediately prior to | | | administration of medications, the patient was re-assessed for | | | adequacy to receive sedatives. The heart rate, respiratory | | | rate, oxygen saturations, blood pressure, adequacy of pulmonary | | | ventilation, and response to care were monitored throughout | | | the procedure. The physical status of the patient was | | | re-assessed after the procedure. After obtaining informed | | | consent, the endoscope was passed under direct vision. | | | Throughout the procedure, the patient's blood pressure, pulse, | | | and oxygen saturations were monitored continuously. The Endoscope was | | | introduced through the mouth, and advanced to the second part | | | of duodenum. The upper GI endoscopy was accomplished without | | | difficulty. The patient tolerated the procedure well.Estimated | | | Blood Loss: Estimated blood loss: none.Moderate Sedation: | | | Moderate (conscious) sedation was administered by the endoscopy nurse | | | and supervised by the endoscopist. The patient's oxygen | | | saturation, heart rate, blood pressure and response to care | | | were monitored. Total physician intraservice time was 12 | | | minutes.Findings: The upper third of the esophagus, middle third | | | of the esophagus and lower third of the esophagus were normal. | | | The Z-line was regular and was found 39 cm from the incisors. | | | Diffuse mildly erythematous mucosa without bleeding was found in | | | the entire examined stomach. Biopsies were taken with a cold | | | forceps for histology. The cardia and gastric fundus were | | | normal on retroflexion. The exam of the stomach was otherwise | | | normal. Diffuse mild inflammation characterized by erosions and | | | erythema was found in the duodenal bulb and in the second | | | portion of the duodenum. Biopsies were taken with a cold | | | forceps for histology. The cardia and gastric fundus were normal | | | on retroflexion.Impression: - Normal upper third of esophagus, | | | middle third of esophagus and lower third of esophagus. - | | | Z-line regular, 39 cm from the incisors. - Erythematous mucosa | | | in the stomach. Biopsied. - Duodenitis. Biopsied. Appearance is | | | more suspicious for peptic duodenitis than Celiac | | | disease.Recommendation: - Await pathology results. - | | | Resume previous diet. - Use Prilosec OTC 20 mg PO daily for 6 | | | weeks. - Return to GI office as previously scheduled.CHELE | | | SCOTT LYNN MD04/22/2020 10:23:56 AMThis report has been signed | | | electronically.Note Initiated On: 04/22/2020 9:47 AMNumber of Addenda: 0 | | | [facility] | | | - Duodenitis. Biopsied. Appearance is more suspicious for peptic | | | duodenitis than Celiac disease. | | |Recommendation: | | | - Await pathology results. | | | - Resume previous diet. | | | - Use Prilosec OTC 20 mg PO daily for 6 weeks. | | | - Return to GI office as previously scheduled. | | |CHELE LYNN MD | | |04/22/2020 10:23:56 AM | | |This report has been signed electronically. | | |Note Initiated On: 04/22/2020 9:47 AM | | |Number of Addenda: 0 | | | [facility] | | + + + + +---------+ + + | Performing | Address | City/State/Zipcode | Phone Number | | Organization | | | | + +---------+ + + | [facility] | | | | + +---------+ + + Surgical Pathology Exam (04/22/2020 12:00 AM PDT) + + | Specimen | + + | | + + + + + | Narrative | Performed At | + + + | SPECIMEN(S): A GASTRIC BIOPSY SPECIMEN(S): B DUODENAL BIOPSY | [facility] | | SPECIMEN SOURCE: A. GASTRIC BIOPSY B. DUODENAL BIOPSY CLINICAL | [facility] | | HISTORY: Rule out H. pylori, rule out celiac. LFT elevation. R19.7 | | | (diarrhea, unspecified), R79.89 (other specified abnormal findings of | | | blood chemistry) MICROSCOPIC DESCRIPTION: Histologic sections of | | | all submitted blocks are examined by light microscopy. These | | | findings, together with the gross examination, support the pathologic | | | diagnosis. Block A1: An immunostain for Helicobacter pylori is | | | performed with appropriate controls to evaluate for the presence of | | | microorganisms. The stain is positive for organisms. JVR:cml | | | FINAL PATHOLOGIC DIAGNOSIS: A. Gastric biopsy: - Diffuse | | | superficial acute and chronic gastritis. - A Helicobacter | | | immunostain is positive for organisms. B. Duodenal biopsy: - | | | Benign duodenal mucosa, negative for specific diagnostic abnormality. | | | JVR:cml:C2NR GROSS DESCRIPTION: Two specimens are received in | | | two containers, labeled "KM." A. The specimen, labeled "KM," | | | and designated on the requisition "gastric," is received in formalin | | | and consists of four varela soft tissue fragments that measure 0.4 cm in | | | greatest dimension. The specimen is entirely submitted in cassette | | | (A1). B. The specimen, labeled "KM," and designated on the | | | requisition "duodenal," is received in formalin and consists of four | | | varela soft tissue fragments that measure 0.3 cm in greatest dimension. | | | The specimen is entirely submitted in cassette (B1). AT (under the | | | direct supervision of a pathologist) The Gross Description was | | | prepared using a voice recognition system. The report was reviewed | | | for accuracy; however, sound-alike word errors, addition and/or | | | deletions may occur. If there is any question about this report, | | | please contact Client Services. ADDITIONAL NOTES: | | | Immunohistochemical and/or in situ hybridization studies were | | | performed on this case with the appropriate positive controls that | | | react as expected. This test was developed and its performance | | | characteristics determined by [facility]. It has not been | | | cleared or approved by the U.S. Food and Drug Administration. The | | | FDA has determined that such clearance or approval is not necessary. | | | This test is used for clinical purposes. It should not be regarded | | | as investigational or for research. [facility] is certified | | | under the Clinical Laboratory Improvement Amendments of 1988 (CLIA) | | | as qualified to perform high complexity clinical laboratory testing. | | | PERFORMING LABORATORY: The technical component was performed by | | | [facility], [address] [place] [id number] (Medical | | | Director: Jennie Roberts MD; CLIA# [id number]). Professional | | | [facility] | | | [address] | | | [address] (Observatory Director: Antoni Prince M.D.). Diagnostician: | | | Antoni Prince MD Pathologist Electronically Signed 04/23/2020 | | | | | + + + + +---------+ + + | Performing | Address | City/State/Zipcode | Phone Number | | Organization | | | | + +---------+ + + | [facility] | | | | | [facility] | | | | + +---------+ + + Coronavirus (COVID-19) NAAT (04/19/2020 8:50 AM PDT) + + + + + + | Component | Value | Ref Range | Performed | Pathologist | | | | | At | Signature | + + + + + + | SARS-CoV-2, | Not DetectedComment: | Not Detected | REFERENCE | | | NAAT | Testing was performed | | LAB [facility] | | | (COVID-19) | using the [employer] | | - [facility] | | | | SARS-CoV-2 assay.This | | | | | | nucleic acid | | | | | | amplification test was | | | | | | developed and its | | | | | | perfomancecharacteristic | | | | | | s determined by [facility] | | | | | | Laboratories. Nucleic | | | | | | acidamplification tests | | | | | | include PCR and TMA. | | | | | | This test has not been | | | | | | FDAcleared or approved. | | | | | | This test has been | | | | | | authorized by FDA under | | | | | | anEmergency Use | | | | | | Authorization (EUA). | | | | | | This test is only | | | | | | authorized forthe | | | | | | duration of time the | | | | | | declaration that | | | | | | circumstances | | | | | | existjustifying the | | | | | | authorization of the | | | | | | emergency use of in | | | | | | vitrodiagnostic tests | | | | | | for detection of | | | | | | SARS-CoV-2 virus and/or | | | | | | diagnosisof COVID-19 | | | | | | infection under section | | | | | | 564(b)(1) of the Act, 21 | | | | | | U.S.C.360bbb-3(b) (1), | | | | | | unless the authorization | | | | | | is terminated or | | | | | | revokedsooner.When | | | | | | diagnostic testing is | | | | | | negative, the | | | | | | possibility of a | | | | | | falsenegative result | | | | | | should be considered in | | | | | | the context of a | | | | | | patient'srecent | | | | | | exposures and the | | | | | | presence of clinical | | | | | | signs and | | | | | | symptomsconsistent with | | | | | | COVID-19. An individual | | | | | | without symptoms of | | | | | | COVID-19and who is not | | | | | | shedding SARS-CoV-2 | | | | | | virus would expect to | | | | | | have anegative (not | | | | | | detected) result in this | | | | | | assay. | | | | + + + + + + + + | Specimen | + + | Tissue - Specimen | | from throat | | (specimen) | + + + + + | Narrative | Performed At | + + + | Performed at: [facility] [address], | REFERENCE LAB | | [place], [place] [id number] Axle Turner: Isra Spears MD, Phone: | [facility] - PED[facility] | | [phone] | | + + + + + + + + | Performing | Address | City/State/Zipcode | Phone Number | | Organization | | | | + + + + + | REFERENCE LAB | [address] | [place], [place] | [phone] | | [facility] | [place] | [address] | | + + + + + PATHOLOGY - EXTERNAL SCAN (03/10/2020 12:00 AM PDT) + + + | Narrative | Performed At | + + + | Ordered by an | | | unspecified provider. | | + + + DIAGNOSTIC REPORT - EXTERNAL SCAN (03/09/2020 12:00 AM PDT) + + + | Narrative | Performed At | + + + | Ordered by an | | | unspecified provider. | | + + + DIAGNOSTIC REPORT - EXTERNAL SCAN (03/09/2020 12:00 AM PDT) + + + | Narrative | Performed At | + + + | Ordered by an | | | unspecified provider. | | + + + from Last 3 Months Insurance + +--------+ +--------+ +---------+--------+ | Payer | Benefi | Subscriber | Effect | Phone | Address | Type | | | t Plan | ID | vangie | | | | | | / | | Dates | | | | | | Group | | | | | | + +--------+ +--------+ +---------+--------+ | MEDICARE | MEDICA | [id number] | 02/18/20 | [phone] | | Medica | | | RE | | 20-Pre | 5 | | re | | | PART A | | sent | | | | + +--------+ +--------+ +---------+--------+ | GEHA | GEHA | [id number] | | [phone] | | PPO | | | AETNA | | 020-Pr | 6 | | | | | PPO | | esent | | | | + +--------+ +--------+ +---------+--------+ + +--------+ +--------+ + + | Guarantor Name | Accoun | Relation to | Date | Phone | Billing Address | | | t Type | Patient | of | | | | | | | | | | + +--------+ +--------+ + + | Magi Gómez | Person | Self | [birth year] | [address] | | | al/Fam | | 1955 | [phone] | [place] [address] | | | vince | | | 1 (Home) | | | | | | | [phone] | | | | | | | 5 (Work) | | + +--------+ +--------+ + + Advance Directives + + + + + | Type | Date Recorded | Patient | Explanation | | | | Stock Sorter | | + + + + + | Power of | | | | | Mortgage Consultant | | | | + + + + + | Advance | 04/22/2020 8:22 | | | | Directive | AM | | | + + + + +
--- OUTSIDE RECORDS SUMMARY | ~2020-05-26 | XMS | Encounter Summary ---
Demographics + + + | Address | [address] | | | [place] [address] | + + + | Home Phone | | + + + | Preferred Language | Unknown | + + + | Marital Status | Single | + + + | Yazdanism Affiliation | Unknown | + + + | Race | White | + + + | Ethnic Group | Not or | + + + Author + + + | Author | [facility] | + + + | Organization | [facility] | + + + | Address | Unknown | + + + | Phone | Unavailable | + + + Support + + + + + | Name | Relationship | Address | Phone | + + + + + | Kaila Ascencio | JOEY | [place] | | | | | [address] | | + + + + + Care Team Providers + +------+ + | Care It Support Specialist Name | Role | Phone | [...] | Only | [address] | [phone] | | | | | [place], [place] | | | | | | [address] | | | | | | [phone] | | | +--------+ + + + [...] Pino, | | | | | | Ph.D., MSandraD. I have | | | | | [...] | + + + + + | [facility] | [address] | [place] [address] | | | PATHOLOGY | [address] | | | + + + + + documented in this encounter Visit Diagnoses Not on filedocumented in this encounter"
--- OUTSIDE RECORDS SUMMARY | ~2020-05-26 | XMS | Encounter Summary ---
Demographics + + + | Address | [address] | | | [place] [address] | + + + | Home Phone | | + + + | Preferred Language | Unknown | + + + | Marital Status | | + + + | Hoahaoism Affiliation | 1013 | + + + | Race | White | + + + | Ethnic Group | Not or | + + + Author + + + | Author | [facility] | | | and [place] | + + + | Organization | [facility] | | | [...] Team Providers + +------+ + | Care Site Auditor Name | Role | Phone | + +------+ + | Karla Payan PA-C | PCP | | + +------+ + Reason for Visit + + + | Reason | Comments | + + + | New Patient | bowel incontinence | + + + [...] | | not due to a | [place] | [address] | | | | | substance | [place], | [address] | | | | | or known | [place] [address] | [address] [place] | | | | | physiologica | | [place], [place] | | | | | l condition | | [address] | | | | | Procedures | | Phone: | | | | | WELFARE MANAGER OFFICE | | [phone] | | | | | VISIT | | Fax: | | | | | | | [phone] | + +--------+ + + + + Encounter Details +--------+---------+ + + + | Date | Type | Department | Care Team | Description | +--------+---------+ + + + | 04/01/ | Office | [facility] | Galo Majano, | Diarrhea, | | 2020 | Visit | GASTROENTEROLOGY | MARKETING PRODUCTION COORDINATOR [address] | unspecified type | | | | [address] | [address] [place] | (Primary Dx); LFT | | | | [address] [place], [place] | [place] [address] | elevation; | | | | [address] | [phone] | Hypokalemia | | | | [phone] | | | +--------+---------+ + + + Social History [...] + + + | Blood Pressure | 120/82 | 04/01/2020 12:53 PM | | | | | PDT | | + + + + + | Pulse | 70 | 04/01/2020 12:53 PM | | | | | PDT | | + + + + + | Temperature | 36.7 C (98 F) | 04/01/2020 12:53 PM | | | | | PDT | | + + + + + | Respiratory Rate | 8 | 04/01/2020 12:53 PM | | | | | PDT | | + + + + + | Oxygen Saturation | 98% | 04/01/2020 12:53 PM | | | | | PDT | | + + + + + | Inhaled Oxygen | - | - | | | Concentration | | | | + + + + + | Weight | 74.8 kg (164 lb 14.5 | 04/01/2020 12:53 PM | | | | oz) | PDT | | + + + + + | Height | 161.3 cm (5' 3.5") | 04/01/2020 12:53 PM | | | | | PDT | | + + + + + | Body Mass Index | 28.75 | 04/01/2020 12:53 PM | | | | | PDT | | + + + + + documented in this encounter Progress Notes Soha Topete Hydraulic Blocker - 04/01/2020 1:00 PM PDTScheduled pt for EGD/IVCS with Michael Wilson on 04/22/20 at 0900; Medications (hold PPI meds 2 weeks prior to procedure), surg/me d hx, and allergies were reviewed; gave instructions for EGD (light supper night before; po ar liquids okay up to 4 hours prior to procedure just no red/purple, dairy/creamer or pulp; advised pt COVID-19 testing required 5 days prior to procedure, Patient will report to [facility] clinic on 04/17/20; order created; info given to patient in the office. El ectronically signed by Juan Antonio Lopez Assistant at 04/01/2020 2:46 PM Brian Heredia ARNP - 04/01/2020 1:00 PM PDTFormatting of this note might be different from the mirza ginal. Gastroenterology Consult Note Date of Office Visit: 04/01/20 Referring Provider: Karla Payan No address on file Consulting Provider: Galo Majano APRN. Chief Complaint: New Patient (bowel incontinence) and Diarrhea History of Present Illness Magi Gómez is a 65 y.o. female who has a past medical history of Abnormal levels of oth er serum enzymes, Encopresis, Internal hemorrhoids and as listed below who presents for jessie luation and treatment of diarrhea and fecal incontinency. Onset of fecal incontinency, and mucous diarrhea December 11 when she was hospitalized in [facility] in which was diagnosed with COVID-19 based on "Covid toe". 2 weeks after dischar she had a colonoscopy with unremarkable findings other than internal hemorrhoids. She wa s also tested for COVID-19 with a negative results. She has been started on colestipol whic h has significantly improved her symptoms. Currently she is having 6 formed stools per day. She has been taking Imodium as needed to avoid fecal incontinency. She reports in the las t 3 weeks her symptoms are well managed. During hospitalization her liver enzymes were note d to be elevated. Taking doxycycline for approximately 5 years for dermatologic reasons. She currently denie s denies fever, abdominal pain, bloating, belching, excessive gas, nausea, vomiting, constip ation, diarrhea, rectal bleeding, hematemesis, hematochezia, melena,or unintentional weight loss. Endoscopic History 02/2020 colonoscopy with findings of diverticulosis, internal hemorrhoids and negative patho logy on biopsy. Review of Systems A 10 point review of systems was conducted with the patient. 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 History of blood transfusion 1955 Hyperlipidemia Hypokalemia Impaired fasting glucose Internal hemorrhoids [...] diverticulosis, minimal internal hemorrhoids. ~Александр Chavez M.D. [facility] ELBOW SURGERY Left FINGER TRIGGER RELEASE 2011 Dr. Martell HYSTERECTOMY Bilateral Hysterectomy with bladder sling, bowel reconstruction about 11 years ago, bilateral ovarie s removed. INCONTINENCE SURGERY KIDNEY SURGERY 1998 Removal of 3rd kidney SHOULDER SURGERY Right 05/2016 Dr. Pantoja SKIN EXCISION 2018 TONSILLECTOMY AND ADENOIDECTOMY 1963 TUBAL LIGATION Family History Family History Problem Relation Age of Onset Hypertension Mother Cataracts Mother Heart disease Father Stroke Father Cancer Father Bladder cancer Crohn's disease Son 17 Social History Social History Socioeconomic History Marital status: Spouse name: Not on file Number of children: Not on file Years of education: Not on file Highest education level: Not on file Tobacco Use Smoking status: Current Every Day Smoker Packs/day: 0.50 Smokeless tobacco: Never Used Tobacco comment: 1 10/d x 40+ yrs, now 2 cigarettes daily Substance and Sexual Activity Alcohol use: Yes Comment: Alcohol beer, whiskey 3/mo Drug use: Yes Types: Marijuana Comment: marijuana, smoke or oil. Has not given self street drugs with a needle. Allergies Allergies Allergen Reactions Sulfa Antibiotics Hives,Rash Intolerance Allergen Reactions Glucophage (Metformin) Diarrhea,Nausea And Vomiting,Other (See Comments) Reaction: Nausea, vomiting, diarrhea , urinary retention, edema Lipitor (Atorvastatin) Nausea And Vomiting,Other (See Comments) Reaction: Unknown Lisinopril Diarrhea,Nausea And Vomiting Uncoded Nonscreenable Allergen Other (See Comments) ALLEGEN: CPAP DEVICE PORTABLE Reaction: Water and urinary retention Medications Current Outpatient Medications on File Prior to Visit Medication Sig Dispense Refill aspirin 81 mg EC tablet Take 81 mg by mouth Daily. atenolol (TENORMIN) 100 MG tablet Take 100 mg by mouth Daily. baclofen (LIORESAL) 10 mg tablet Take 10 mg by mouth 3 times daily. buPROPion (WELLBUTRIN SR) 150 mg 12 hr tablet Take 150 mg by mouth 2 times daily. calcium citrate-vitamin D (CITRACAL MAXIMUM) 315-250 MG-UNIT TABS Take 1 tablet by mout h Daily. HDFGZYG-XOWLHQHCUN-HEUU 333-133-8.3 MG TABS Take by mouth. cholecalciferol (VITAMIN D-3) 25 mcg (1,000 units) tablet Take 25 mcg by mouth Daily. clindamycin (CLEOCIN T) 1% external solution apply topically to affected area twice a d ay colestipol (COLESTID) 1 g tablet Take 1 g by mouth 2 times daily. doxycycline (MONODOX) 100 mg capsule Take 100 mg by mouth 2 times daily. fluticasone (FLONASE) 50 mcg/nasal spray 1 spray by Nasal route Daily. hydroCHLOROthiazide 25 mg tablet Take 25 mg by mouth Daily. loratadine (CLARITIN) 10 mg tablet Take 10 mg by mouth Daily. losartan (COZAAR) 100 MG tablet Take 100 mg by mouth Daily. nicotine (NICODERM) 7 mg/24 hr apply 1 patch topically once daily as directed omeprazole (PRILOSEC) 20 mg capsule Take 20 mg by mouth every morning (before breakfast ). potassium chloride (KLOR-CON) 10 MEQ ER tablet Take 10 mEq by mouth 2 times daily. pravastatin (PRAVACHOL) 40 MG tablet Take 40 mg by mouth nightly. VIT W/NO-XNZGEQOVF-DK PO Take 1 tablet by mouth Daily. Probiotic Product (TRIPLE PROBIOTIC PO) Take 1 tablet by mouth Daily. RA LAXATIVE 5 MG EC tablet take 2 tablets by mouth AT 3:00PM AND 2 TABLETS AT 7:00PM NI GHT PRIOR TO PROCEDURE TGT PSYLLIUM FIBER PO Take 3 tablets by mouth Daily. No current facility-administered medications on file prior to visit. Physical Exam Vitals:BP 120/82 | Pulse 70 | Temp 36.7 C (98 F) (Temporal) | Resp 8 | Ht 1.613 m ( 5' 3.5") | Wt 74.8 kg (164 lb 14.5 oz) | SpO2 98% | BMI 28.75 kg/m General: This is a well-developed,well-nurished female in no apparent distress, alert and o riented x 3. Head: Reveals normocephalic, atraumatic Eyes: Sclera anicteric, normal conjunctiva. Lungs: Clear to auscultation without rales or wheezes. Cardiac: RRR with normal S1 and S2 Abdomen: Soft and nontender without masses or organmegaly. No guarding or rebound pain. No rmoactive bowel sounds. Extremities: Without cyanosis, clubbing or edema. Neuro: Awake, alert, oriented x3. Skin: Warm and dry, no erythematous rash. Labs Lab Results Component Value Date MCH 31.0 12/12/2019 MCHC 34.0 12/12/2019 Lab Results Component Value Date ALKPHOS 166 (A) 12/22/2019 No results found for: CHOL No results found for: HDL No components found for: LDLCALC No results found for: TRIG No results found for: CHOLHDL No results found for: IRON, TIBC, FERRITIN No results found for: LIPASE No results found for: AMYLASE Imaging None with this encounter. Assessment and Plan ? This is a 65-year-old female who presents for evaluation and treatment for diarrhea. She has been hospitalized in the month of November in which COVID 19 was suspected. Since then merline joel had a colonoscopy with unremarkable finding and stool studies from primary care were unrem arkable. Currently she is on colestipol and she is having formed stools 10 to 6/day. Occas ionally uses loperamide to avoid accidents. During hospitalization she was hypokalemic and LFTs were noted to be elevated. o Esophagogastroduodenoscopy to rule out celiac disease, whipple sprue, CMV and Crohn's dis ease o Complete CMP before next visit o Celiac panel o Continue with colestipol 2 tablets in the morning, 1 tablet at noon, 2 tablets at bedtime . And she can use loperamide 2 mg once a day in the morning to avoid fecal incontinency. I f she noticed being constipated she will discontinue loperamide and continue with colestipol . If she still continues being constipated she will decrease the dosage for colestipol as i nstructed. o Anorectal manometry recommended if the symptom does not resolve in the next 4 weeks. o Follow-up after EGD. I reviewed the test results with the patient. The results were explained in detail as well as the plan of care, diagnosis and management options. The patient was given the opportunity to ask questions and voice concerns. Any questions asked appear to have been answered to th e patient's satisfaction. Spent 30 minutes with over half of the time spent in discussion with the patient regarding diagnostics and possible treatment options Documented by STEPHON Ramirez Date:04/01/2020 Patient Name: Magi Gómez : 1955 Portions of this chart may have been created with nothingGrinder voice recognition software. Occasi onal wrong-word or [...] | | 2019 | Visit | | MARKETING PRODUCTION COORDINATOR [address] | | | | | | [place] | | | | | | [place] [address] | | | | | | [phone] | | | | | | | | +--------+---------+ + + + + + +--------+ + + | Name | Type | Priori | Associated Diagnoses | Order Schedule | | | | ty | | | + + +--------+ + + | Comprehensive | Lab | Routin | Diarrhea, | Expected: | | Metabolic Panel | | e | unspecified type | 04/01/2020, Expires: | | | | | LFT elevation | 07/30/2020 | + + +--------+ + + | Celiac Panel, | Lab | Routin | Diarrhea, | 1 Occurrences | | Serology | | e | unspecified type | starting 04/01/2020 | | | | | LFT elevation | until 04/01/2021 | + + +--------+ + + | Coronavirus | Microbiolog | Routin | Diarrhea, | Expected: | | (COVID-19) NAAT | y | e | unspecified type | 04/17/2020, Expires: | | | | | LFT elevation | 06/01/2020 | | | | | Hypokalemia | | + + +--------+ + + [...] + + documented in this encounter Results PATHOLOGY - EXTERNAL SCAN (03/10/2020 12:00 AM [...] unspecified provider. | | + + + documented in this encounter Visit Diagnoses + + | Diagnosis | + + | Diarrhea, unspecified type - Primary | + + | LFT elevation Other abnormal blood chemistry | + + | Hypokalemia Hypopotassemia | + + documented in this encounter
--- OUTSIDE RECORDS SUMMARY | ~2020-05-26 | XMS | Encounter Summary ---
Demographics + + + | Address | [address] | | | [place] [address] | + + + | Home Phone | | + + + | Preferred Language | Unknown | + + + | Marital Status | | + + + | Yarsani Affiliation | 1013 | + + + | Race | White | + + + | Ethnic Group | Not or | + + + Author + + + | Author | [facility] | | | and [place] | + + + | Organization | [facility] | | | [...] Team Providers + +------+ + | Care Vehicle Body Sander Name | Role | Phone | + +------+ + | Karla Payan PA-C | PCP | | + +------+ + Encounter Details +--------+ + + + + | Date | Type | Department | Care Team | Description | +--------+ + + + + | 03/30/ | Abstract | [facility] | Provider, | | | 2020 | | GASTROENTEROLOGY | MD [address] | | | | | [address] | [place] | | | | | [address] [place] [address] | [place] [address] | | | | | [address] | | | | | | [phone] | | | +--------+ + + + + Social History + +-------+ +--------+------+ | Tobacco Use | Types | Packs/Day | Years | Date | | | | | Used | | + +-------+ +--------+------+ | Current Every Day | | 0.5 | | | | Smoker | | | | | + +-------+ +--------+------+ + + | Comments: 1 10/d x [...] | | 2019 | Visit | | [facility] [address] | | | | | | [address] [place] | | | | | | [place] [address] | | | | | | [phone] | | | | | | | | +--------+---------+ + + + documented as of this encounter Procedures + +--------+ + + + | Procedure Name | Priori | Date/Time | Associated Diagnosis | Comments | | | ty | | | | + +--------+ + + + | EXTERNAL LAB: BUN | Routin | 01/05/2020 | | Results for this | | | e | | | procedure are in the | | | | | | results section. | + +--------+ + + + | EXTERNAL LAB: | Routin | 01/05/2020 | | Results for this | | GLUCOSE | e | | | procedure are in the | | | | | | results section. | + +--------+ + + + | EXTERNAL LAB: ALT | Routin | 01/05/2020 | | Results for this | | | e | | | procedure are in the | | | | | | results section. | + +--------+ + + + | EXTERNAL LAB: AST | Routin | 01/05/2020 | | Results for this | | | e | | | procedure are in the | | | | | | results section. | + +--------+ + + + | EXTERNAL LAB: | Routin | 01/05/2020 | | Results for this | | ALKALINE PHOSPHATASE | e | | | procedure are in the | | | | | | results section. | + +--------+ + + + | EXTERNAL LAB: | Routin | 01/05/2020 | | Results for this | | BILIRUBIN, TOTAL | e | | | procedure are in the | | | | | | results section. | + +--------+ + + + | EXTERNAL LAB: | Routin | 01/05/2020 | | Results for this | | ALBUMIN | e | | | procedure are in the | | | | | | results section. | + +--------+ + + + | EXTERNAL LAB: | Routin | 01/05/2020 | | Results for this | | PROTEIN, TOTAL | e | | | procedure are in the | | | | | | results section. | + +--------+ + + + | EXTERNAL LAB: | Routin | 01/05/2020 | | Results for this | | CALCIUM | e | | | procedure are in the | | | | | | results section. | + +--------+ + + + | EXTERNAL LAB: CARBON | Routin | 01/05/2020 | | Results for this | | DIOXIDE | e | | | procedure are in the | | | | | | results section. | + +--------+ + + + | EXTERNAL LAB: | Routin | 01/05/2020 | | Results for this | | CHLORIDE | e | | | procedure are in the | | | | | | results section. | + +--------+ + + + | EXTERNAL LAB: | Routin | 01/05/2020 | | Results for this | | POTASSIUM | e | | | procedure are in the | | | | | | results section. | + +--------+ + + + | EXTERNAL LAB: SODIUM | Routin | 01/05/2020 | | Results for this | | | e | | | procedure are in the | | | | | | results section. | + +--------+ + + + | EXTERNAL LAB: EGFR | Routin | 01/05/2020 | | Results for this | | | e | | | procedure are in the | | | | | | results section. | + +--------+ + + + | EXTERNAL LAB: | Routin | 01/05/2020 | | Results for this | | CREATININE | e | | | procedure are in the | | | | | | results section. | + +--------+ + + + | COMPREHENSIVE | Routin | 01/05/2020 | | Results for this | | METABOLIC PANEL | e | | | procedure are in the | | | | | | results section. | + +--------+ + + + | HEPATITIS A, B, C | Routin | 12/22/2019 | | Results for this | | PANEL, REFLEX | e | | | procedure are in the | | | | | | results section. | + +--------+ + + + | CYTOMEGALOVIRUS AB, | Routin | 12/22/2019 | | Results for this | | IGG AND IGM | e | | | procedure are in the | | | | | | results section. | + +--------+ + + + | MEHREEN-DINH VIRUS | Routin | 12/22/2019 | | Results for this | | PANEL | e | | | procedure are in the | | | | | | results section. | + +--------+ + + + | ALKALINE | Routin | 12/22/2019 | | Results for this | | PHOSPHATASE, | e | | | procedure are in the | | ISOENZYMES | | | | results section. | + +--------+ + + + | EXTERNAL LAB: CBC | Routin | 12/12/2019 | | Results for this | | | e | | | procedure are in the | | | | | | results section. | + +--------+ + + + | CBC WITH | Routin | 12/12/2019 | | Results for this | | DIFFERENTIAL | e | | | procedure are in the | | | | | | results section. | + +--------+ + + + documented in this encounter Results Comprehensive Metabolic Panel (01/05/2020) + +---------+ + + + | Component | Value | Ref Range | Performed | Pathologist | | | | | At | Signature | + +---------+ + + + | Anion Gap | 17 | 7 - 21 mmol/L | | | + +---------+ + + + | Bun/Creatin | 15.0 | 6.0 - 28.6 | | | | ine | | Ratio | | | + +---------+ + + + | Globulin | 2.8 (A) | 1.1 - 2.4 g/dL | | | + +---------+ + + + | Albumin/Lisa | 1.2 | Ratio | | | | bulin Ratio | | | | | + +---------+ + + + + + | Specimen | + + | Blood | + + External Lab: RENA (01/05/2020) + +-------+ + + + | Component | Value | Ref Range | Performed | Pathologist | | | | | At | Signature | + +-------+ + + + | BUN, | 17 | 6 - 23 | EXTERNAL | | | External | | | LAB | | + +-------+ + + + + +---------+ + + | Performing | Address | City/State/Zipcode | Phone Number | | Organization | | | | + +---------+ + + | EXTERNAL LAB | | | | + +---------+ + + External Lab: Glucose (01/05/2020) + +---------+ + + + | Component | Value | Ref Range | Performed | Pathologist | | | | | At | Signature | + +---------+ + + + | Glucose, | 133 (A) | 70 - 100 | EXTERNAL | | | External | | | LAB | | + +---------+ + + + + +---------+ + + | Performing | Address | City/State/Zipcode | Phone Number | | Organization | | | | + +---------+ + + | EXTERNAL LAB | | | | + +---------+ + + External Lab: ALT (01/05/2020) + +--------+ + + + | Component | Value | Ref Range | Performed | Pathologist | | | | | At | Signature | + +--------+ + + + | ALT, | 53 (A) | 7 - 52 | EXTERNAL | | | External | | | LAB | | + +--------+ + + + + +---------+ + + | Performing | Address | City/State/Zipcode | Phone Number | | Organization | | | | + +---------+ + + | EXTERNAL LAB | | | | + +---------+ + + External Lab: AST (01/05/2020) + +-------+ + + + | Component | Value | Ref Range | Performed | Pathologist | | | | | At | Signature | + +-------+ + + + | AST, | 35 | 13 - 39 | EXTERNAL | | | External | | | LAB | | + +-------+ + + + + +---------+ + + | Performing | Address | City/State/Zipcode | Phone Number | | Organization | | | | + +---------+ + + | EXTERNAL LAB | | | | + +---------+ + + External Lab: Alkaline Phosphatase (01/05/2020) + +-------+ + + + | Component | Value | Ref Range | Performed | Pathologist | | | | | At | Signature | + +-------+ + + + | ALP, | 105 | 31 - 130 | EXTERNAL | | | External | | | LAB | | + +-------+ + + + + +---------+ + + | Performing | Address | City/State/Zipcode | Phone Number | | Organization | | | | + +---------+ + + | EXTERNAL LAB | | | | + +---------+ + + External Lab: Bilirubin, Total (01/05/2020) + +-------+ + + + | Component | Value | Ref Range | Performed | Pathologist | | | | | At | Signature | + +-------+ + + + | Bilirubin, | 0.4 | 0 - 1.2 | EXTERNAL | | | Total, | | | LAB | | | External | | | | | + +-------+ + + + + +---------+ + + | Performing | Address | City/State/Zipcode | Phone Number | | Organization | | | | + +---------+ + + | EXTERNAL LAB | | | | + +---------+ + + External Lab: Albumin (01/05/2020) + +---------+ + + + | Component | Value | Ref Range | Performed | Pathologist | | | | | At | Signature | + +---------+ + + + | Albumin, | 3.4 (A) | 3.5 - 5 | EXTERNAL | | | External | | | LAB | | + +---------+ + + + + +---------+ + + | Performing | Address | City/State/Zipcode | Phone Number | | Organization | | | | + +---------+ + + | EXTERNAL LAB | | | | + +---------+ + + External Lab: Protein, Total (01/05/2020) + +-------+ + + + | Component | Value | Ref Range | Performed | Pathologist | | | | | At | Signature | + +-------+ + + + | Protein, | 6.2 | 6 - 8.3 | EXTERNAL | | | Total, | | | LAB | | | External | | | | | + +-------+ + + + + +---------+ + + | Performing | Address | City/State/Zipcode | Phone Number | | Organization | | | | + +---------+ + + | EXTERNAL LAB | | | | + +---------+ + + External Lab: Calcium (01/05/2020) + +-------+ + + + | Component | Value | Ref Range | Performed | Pathologist | | | | | At | Signature | + +-------+ + + + | Calcium, | 9.2 | 8.5 - 10.3 | EXTERNAL | | | External | | | LAB | | + +-------+ + + + + +---------+ + + | Performing | Address | City/State/Zipcode | Phone Number | | Organization | | | | + +---------+ + + | EXTERNAL LAB | | | | + +---------+ + + External Lab: Carbon Dioxide (01/05/2020) + +-------+ + + + | Component | Value | Ref Range | Performed | Pathologist | | | | | At | Signature | + +-------+ + + + | Carbon | 25 | 19 - 31 | EXTERNAL | | | Dioxide, | | | LAB | | | External | | | | | + +-------+ + + + + +---------+ + + | Performing | Address | City/State/Zipcode | Phone Number | | Organization | | | | + +---------+ + + | EXTERNAL LAB | | | | + +---------+ + + External Lab: Chloride (01/05/2020) + +-------+ + + + | Component | Value | Ref Range | Performed | Pathologist | | | | | At | Signature | + +-------+ + + + | Chloride, | 104 | 95 - 112 | EXTERNAL | | | External | | | LAB | | + +-------+ + + + + +---------+ + + | Performing | Address | City/State/Zipcode | Phone Number | | Organization | | | | + +---------+ + + | EXTERNAL LAB | | | | + +---------+ + + External Lab: Potassium (01/05/2020) + +---------+ + + + | Component | Value | Ref Range | Performed | Pathologist | | | | | At | Signature | + +---------+ + + + | Potassium, | 3.3 (A) | 3.6 - 5.1 | EXTERNAL | | | External | | | LAB | | + +---------+ + + + + +---------+ + + | Performing | Address | City/State/Zipcode | Phone Number | | Organization | | | | + +---------+ + + | EXTERNAL LAB | | | | + +---------+ + + External Lab: Sodium (01/05/2020) + +-------+ + + + | Component | Value | Ref Range | Performed | Pathologist | | | | | At | Signature | + +-------+ + + + | Sodium, | 143 | 132 - 143 | EXTERNAL | | | External | | | LAB | | + +-------+ + + + + +---------+ + + | Performing | Address | City/State/Zipcode | Phone Number | | Organization | | | | + +---------+ + + | EXTERNAL LAB | | | | + +---------+ + + External Lab: eGFR (01/05/2020) + +--------+ + + + | Component | Value | Ref Range | Performed | Pathologist | | | | | At | Signature | + +--------+ + + + | eGFR, | 48 (A) | 60 - 99,999 | EXTERNAL | | | External | | | LAB | | + +--------+ + + + + + | Specimen | + + | Blood | + + + +---------+ + + | Performing | Address | City/State/Zipcode | Phone Number | | Organization | | | | + +---------+ + + | EXTERNAL LAB | | | | + +---------+ + + External Lab: Creatinine (01/05/2020) + +-------+ + + + | Component | Value | Ref Range | Performed | Pathologist | | | | | At | Signature | + +-------+ + + + | Creatinine, | 1.13 | 0.7 - 1.25 | EXTERNAL | | | External | | | LAB | | + +-------+ + + + + + | Specimen | + + | Blood | + + + +---------+ + + | Performing | Address | City/State/Zipcode | Phone Number | | Organization | | | | + +---------+ + + | EXTERNAL LAB | | | | + +---------+ + + Alkaline Phosphatase, Isoenzymes (12/22/2019) + +---------+ + + + | Component | Value | Ref Range | Performed | Pathologist | | | | | At | Signature | + +---------+ + + + | Alk Phos | 51 | U/L | | | | Bone | | | | | | Specific | | | | | + +---------+ + + + | Alkaline | 166 (A) | 40 - 120 U/L | | | | Phosphatase | | | | | + +---------+ + + + | Alk Phos | 115 (A) | 0 - 94 U/L | | | | Liver Fract | | | | | + +---------+ + + + | ALKALINE | 0 | | | | | PHOSPHATASE | | | | | | OTHER | | | | | | CALCULATION | | | | | + +---------+ + + + + + | Specimen | + + | Blood | + + Mehreen-Dinh Virus Panel (12/22/2019) + + + + + + | Component | Value | Ref Range | Performed | Pathologist | | | | | At | Signature | + + + + + + | EBV IgG | 201 (A) | 0 - 18 | | | + + + + + + | EBV IgM | <10.0 | 0 - 36.0 | | | + + + + + + | EBV AB IGG, | 11.0 (A) | 0 - 9.0 | | | | EARLY | | | | | + + + + + + | EBV Ab IgG | >600 | 0 - 18.0 | | | | to Nuclear | | | | | | Antigen | | | | | + + + + + + + + | Specimen | + + | Blood | + + Cytomegalovirus Ab, IgG and IgM (12/22/2019) + + + + + + | Component | Value | Ref Range | Performed | Pathologist | | | | | At | Signature | + + + + + + | CMV IGG | Positive | Negative | | | + + + + + + | CMV IGM | Negative | Negative | | | + + + + + + + + | Specimen | + + | Blood | + + Hepatitis A, B, C Panel, Reflex (12/22/2019) + + + + + + | Component | Value | Ref Range | Performed | Pathologist | | | | | At | Signature | + + + + + + | HAV AB IGM | Negative | Negative | | | + + + + + + | HBsAg, | Non-Reactive | Non-Reactive | | | | External | | | | | + + + + + + | HEP B | Positive | | | | | SURFACE | | | | | | ANTIBODY | | | | | + + + + + + | Hepatitis B | Non Reactive | Non Reactive | | | | Core Ab, | | | | | | Total | | | | | + + + + + + | HCV Ab | Negative | | | | + + + + + + + + | Specimen | + + | Blood | + + CBC with Differential (12/12/2019) + +-------+ + + + | Component | Value | Ref Range | Performed | Pathologist | | | | | At | Signature | + +-------+ + + + | MCH | 31.0 | 27.0 - 33.0 pg | | | + +-------+ + + + | MCHC | 34.0 | 30.0 - 36.0 | | | | | | g/dL | | | + +-------+ + + + | % Basophils | 1.7 | 0.0 - 2.0 % | | | + +-------+ + + + + + | Specimen | + + | Blood | + + External Lab: CBC (12/12/2019) + + + + + + | Component | Value | Ref Range | Performed | Pathologist | | | | | At | Signature | + + + + + + | WBC, | 9.8 | 4.5 - 11 | EXTERNAL | | | External | | | LAB | | + + + + + + | HGB, | 13.7 | 12 - 16 | EXTERNAL | | | External | | | LAB | | + + + + + + | HCT, | 40.5 | 35 - 45 | EXTERNAL | | | External | | | LAB | | + + + + + + | PLT, | 357 | 140 - 440 | EXTERNAL | | | External | | | LAB | | + + + + + + | Neutrophils | 65.6 | 39 - 80 | EXTERNAL | | | %, | | | LAB | | | External | | | | | + + + + + + | Lymphocytes | 23.4 (A) | 24 - 44 | EXTERNAL | | | %, | | | LAB | | | External | | | | | + + + + + + | Monocytes | 8.5 | 0 - 12 | EXTERNAL | | | %, External | | | LAB | | + + + + + + | Eosinophils | 0.8 | 0 - 6 | EXTERNAL | | | %, | | | LAB | | | External | | | | | + + + + + + | RBC, | 4.39 | 3.8 - 5.1 | EXTERNAL | | | External | | | LAB | | + + + + + + | MCV, | 92 | 81 - 99 | EXTERNAL | | | External | | | LAB | | + + + + + + | RDW, | 13.8 | 10.5 - 15 | EXTERNAL | | | External | | | LAB | | + + + + + + + + | Specimen | + + | | + + + +---------+ + + | Performing | Address | City/State/Zipcode | Phone Number | | Organization | | | | + +---------+ + + | EXTERNAL LAB | | | | + +---------+ + + documented in this encounter Visit Diagnoses Not on filedocumented in this encounter"
--- OUTSIDE RECORDS SUMMARY | ~2020-05-26 | XMS | Encounter Summary ---
Demographics + + + | Address | [address] | | | [place] [address] | + + + | Home Phone | | + + + | Preferred Language | Unknown | + + + | Marital Status | | + + + | Christianity Affiliation | 1013 | + + + | Race | White | + + + | Ethnic Group | Not or | + + + Author + + + | Author | [facility] | | | and [place] | + + + | Organization | [facility] | | | [...] Team Providers + +------+ + | Care Pipe Fitter Helper Name | Role | Phone | [...] + + | 04/19/ | Telephone | [facility] | Galo Majano, | Diarrhea (extremely | | 2019 | | 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 elephone Encounter - Malgorzata Fnuk RN - 2019 10:49 AM PDTPatient called [...] 07/01/ | Office | Gastroenterology | Galo Majnao, | | | 2019 | Visit | | COMMUNITY [employer]S WORKER [address] | | | | | | [facility] [address] | | | | | | [place] [address] | | | | | | [phone] | | | | | | | | +--------+---------+ + + + documented as of this encounter Visit Diagnoses Not on filedocumented in this encounter"
--- OUTSIDE RECORDS SUMMARY | ~2020-05-26 | XMS | Clinical Summary ---
Demographics + + + | Address | [address] | | | [place] [address] | + + + | Home Phone | | + + + | Preferred Language | Unknown | + + + | Marital Status | Single | + + + | Gnosticist Affiliation | Unknown | + + + [...] [place] | | | | | [address] | | + + + + + Care Team Providers + +------+ + | Care Financial Aid Director Name | Role | Phone | + +------+ + PCP | Unavailable | + +------+ + Source Comments KEENAN is fully live on both [facility] and [facility] In[facility] Allergies Not on File Medications [...] + + + Last Filed Vital Signs Not on file Plan of Treatment + + +-------+ + | Health Maintenance | Due Date | Last | Comments | | | | Done | | + + +-------+ + | Pneumococcal | | | | | vaccination (1 of 1 | 0 | | | | - PPSV23) | | | | + + +-------+ + | Influenza (Flu) | | | | | vaccination (#1) | 0 | | | + + +-------+ + Results Not on filefrom Last 3 Months"
--- OUTSIDE RECORDS SUMMARY | ~2020-05-26 | XMS | Encounter Summary ---
Demographics + + + | Address | [address] | | | [place] [address] | + + + | Home Phone | | + + + | Preferred Language | Unknown | + + + | Marital Status | | + + + | Voodoo Affiliation | 1013 | + + + | Race | White | + + + | Ethnic Group | Not or | + + + Author + + + | Author | [facility] | | | and [place] | + + + | Organization | [facility] | | | [...] Team Providers + +------+ + | Care Pickling Machine Operator Name | Role | Phone [...] | | not due to a | [employer] | [address] | | | | | substance | [place], | [address] | | | | | or known | [place] [address] | [address] [place] | | | | | physiologica | | [place], [place] | | | | | l condition | | [address] | | | | | Procedures | | Phone: | | | | | STORE PLANNER OFFICE | | [phone] | | | | | VISIT | | Fax: | | | | | | | [phone] | + +--------+ + + + + Encounter Details +--------+---------+ + + + | Date | Type | Department | Care Team | Description | +--------+---------+ + + + | 04/28/ | Office | [facility] | Galo Majano, | Helicobacter pylori | | 2020 | Visit | 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 ~Александр Chavez M.D. [facility] ELBOW SURGERY Left FINGER TRIGGER RELEASE 2011 Dr. Martell HYSTERECTOMY Bilateral Hysterectomy with bladder sling, bowel reconstruction about 11 years ago, bilateral ovarie s removed. INCONTINENCE SURGERY KIDNEY SURGERY 1998 Removal of 3rd kidney SHOULDER SURGERY Right 05/2016 Dr. Pantoja SKIN EXCISION 2018 TONSILLECTOMY AND ADENOIDECTOMY 1963 TUBAL LIGATION UPPER GASTROINTESTINAL ENDOSCOPY N/A 04/22/2020 Procedure: EGD; Surgeon: Chele Wilson MD; Location: [facility] Allergies Allergies Allergen Reactions [...] 150 mg by mouth 2 times daily. [id number] 333-133-8.3 MG TABS Take by mouth. cholecalciferol [...] 1 patch topically once daily as directed [place]-3 Fatty Acids (FISH OIL PO) Take 1 [...] this chart may have been created with SP3H voice recognition software. Occasi onal wrong-word or [...] | | 2019 | Visit | | KETTLE FRY COOK OPERATOR [address] | | | | | | [place] | | | | | | [place] [address] | | | | | | [phone] | | | | | | | [...]
--- OUTSIDE RECORDS SUMMARY | ~2020-05-26 | XMS | Encounter Summary ---
Demographics + + + | Address | [address] | | | [place] [address] | + + + | Home Phone | | + + + | Preferred Language | Unknown | + + + | Marital Status | | + + + | Yazidism Affiliation | 1013 | + + + | Race | White | + + + | Ethnic Group | Not or | + + + Author + + + | Author | [facility] | | | and [place] | + + + | Organization | [facility] | | | and [...] Team Providers + +------+ + | Care Buckle Sewer Machine Name | Role | Phone | + +------+ + PCP | Unavailable | + +------+ + Encounter Details +--------+ + + + + | Date | Type | Department | Care Team | Description | +--------+ + + + + | 02/18/ | Hospital | [facility] | Unknown, | | | 2000 | Encounter | MED CTR XRAY [address] | MD [place] . | | | | | [place] | | | | | | [place] [address] | (Fax) | | | | | [phone] | | | +--------+ + + + [...] | | 2019 | Visit | | [facility] [address] | | | | | | [address] [place] | | | | | | [place] [address] | | | | | | [phone] | | | | | | | | +--------+---------+ + + + documented as of this encounter Visit Diagnoses Not on filedocumented in this encounter"
--- OUTSIDE RECORDS SUMMARY | ~2020-05-26 | XMS | Encounter Summary ---
Demographics + + + | Address | [address] | | | [place] [address] | + + + | Home Phone | | + + + | Preferred Language | Unknown | + + + | Marital Status | Single | + + + | Protestant Affiliation | Unknown | + + + | Race | White | + + + | Ethnic Group | Not or | + + + Author + + + | Author | [facility] | + + + | Organization | [facility] | + + + | Address | Unknown | + + + | Phone | Unavailable | + + + Support + + + + + | Name | Relationship | Address | Phone | + + + + + | Kaila Ascencio | [address] | [place] | | | | | [address] | | + + + + + Care Team Providers + +------+ + | Care Talent Acquisition Relationship Manager Name | Role | Phone | [...] [id number] | | | | | | [place], [place] | | | | | | [address] | | | | | | [phone] | | | +--------+ + + + [...] | + + + + + | [facility] | [address] | [place] [address] | | | PATHOLOGY | [address] [...] | + + + + + | [facility] | [address] | [place] [address] | | | PATHOLOGY | [address] [...] | + + + + + | [facility] | [address] | [place] [address] | | | PATHOLOGY | [address] | | | + + + + + documented in this encounter Visit Diagnoses Not on filedocumented in this encounter"
--- OUTSIDE RECORDS SUMMARY | ~2020-05-26 | XMS | Encounter Summary ---
Demographics + + + | Address | [address] | | | [place] [address] | + + + | Home Phone [...] Author + + + | Author | [facility] | + + + | Organization | [facility] | + + + | Address | Unknown | + + + | Phone | Unavailable | + + + Support + + + + + | Name | Relationship | Address | Phone | + + + + + | Kaila Ascencio | OJEY | [place] | | | | | [address] | | + + + + + Care Team Providers + +------+ + | Care Sweeper Driver Name | Role | Phone | [...] as of this encounter Progress Notes Interface, Wood Coater In - 08/13/2006 3:11 AM PSTCLINIC DATE: 11/25/1998 ADULT UROLOGY CLINIC HISTORY OF PRESENT ILLNESS: The patient is a 45-year-old female who is referred from her family practitioner, Dany Orozco M.D., in [facility] for chronic pyelonephritis. The patient notes that [...] pain, she contacts her family practitioner in [place], who then treats her with a 10-day course of antibiotics. The symptoms always resolve after the course of antibiotics, but then recur. The patient had a hysterectomy three years ago, and since the hysterectomy, the left-sided kidney infections have increased in frequency to three to four times per year. In July of 1998, the patient presented to an emergency room in [place] with excruciating left-sided flank pain and was found to have a white blood cell count of 23,000 and a temperature of 101F. She was hospitalized and treated for pyelonephritis for five days. After discharge from this hospital in [place], the patient received a Urology consult. A [...] night. SOCIAL HISTORY: The patient lives in [facility]. She is a single mother with four children, ranging in age from 10 to 18. 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 FAMILY HISTORY: There [...]
--- OUTSIDE RECORDS SUMMARY | ~2020-05-26 | XMS | Encounter Summary ---
Demographics + + + | Address | [address] | | | [place] [address] | + + + | Home Phone | | + + + | Preferred Language | Unknown | + + + | Marital Status | Single | + + + | Bahai Affiliation | Unknown | + + + [...] [place] | | | | | [address] | | + + + + + Care Team Providers + +------+ + | Care Salvationist Name | Role | Phone | + [...] as of this encounter Progress Notes Interface, Chemicals Fermentation Operator In - 08/13/2006 3:11 AM [facility] [place] [address] [address] or November 25, 1998 DON SOLITARIO DO [address] [place] [address] RE: Magi Gómez MR#: [id number] [...] hesitate to give me a call. Sincerely, Kesahv Prado M.D. EF:xt4 cc: ARLENE WEST MD [address], [address] [place] [email or web address] signed by Interface, Chemicals Fermentation Operator In at 08/13/2006 3:11 AM PSTdocumented in this encounter Plan of Treatment Not on filedocumented as of this encounter Visit Diagnoses Not on filedocumented in this encounter"
--- OUTSIDE RECORDS SUMMARY | ~2020-05-26 | XMS | Encounter Summary ---
Demographics + + + | Address | [address] | | | [place] [address] | + + + | Home Phone | | + + + | Preferred Language | Unknown | + + + | Marital Status | Single | + + + | Alevism Affiliation | Unknown | + + + [...] [place] | | | | | [address] | | + + + + + Care Team Providers + +------+ + | Care Products Mechanical Design Engineer Name | Role | Phone | + +------+ + PCP | Unavailable | + +------+ + Encounter Details +--------+ + + + + | Date | Type | Department | Care Team | Description | +--------+ + + + + | /30/ | Discharge | | Summary, Discharge | D/C Summary ODDS | | 1999 | Summary-Tra | | | | | | nscribed | | | | +--------+ + + [...] + + documented as of this encounter Discharge Summaries Interface, Device Test Engineer In - 08/10/2006 5:[address] [address] [facility] MEDICAL SUMMARY OF HOSPITALIZATION Med Rec No: [id number] Admission Date: 01/10/1999 Name: Magi Gómez Discharge Date: 01/16/1999 STAFF PHYSICIAN: Keshav Prado M.D. 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 PRINCIPAL PROCEDURE: Left upper pole nephrectomy. REASON FOR ADMISSION: The patient is a 43-year-old woman with a history of left flank pain and chronic left pyelonephritis. 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 Prado for management. After reviewing her films and history, Dr. Prado recommended a left upper pole nephrectomy. The patient agreed and presented to [facility] for management. HOSPITAL COURSE: The patient was admitted and underwent the above-noted procedure on the day of admission. The patient tolerated the procedure well and it was carried out without complication. Postoperatively, she had a stable and uneventful recovery. Her pain was controlled with an epidural catheter. This was removed on postoperative day #4, when she started a clear liquid diet. Her transition to oral pain medications was smooth. Her diet was advanced as tolerated and, by postoperative day #7, she was stable and ready for discharge to home. On the day of discharge, she was ambulating without difficulty. Her pain was well controlled with oral pain medications, and she was tolerating a general diet. CONDITION ON DISCHARGE: Stable. DISCHARGE MEDICATION(S): 1. Vicodin 1 to 2 tablets p.o. q. 4-6 hr p.r.n. pain. 2. Colace 100 mg p.o. b.i.d. DISCHARGE INSTRUCTION(S): Discharge Diet: General diet. Discharge Activity: Ad maria teresa. The patient was instructed not to lift greater than 10 lb for five weeks. Discharge Follow-up: The patient will follow up with her referring physician in [place]. Should she have any complications or problems related to her surgery, we will be happy to see her again in [place]. Bridger Gonzalez M.D. Keshav Prado M.D. DORIS/juan A cc: DON DOHERTY DO [address] [place] [address] ARLENE WEST DO [address] [place] [id number] signed by Interface, Device Test Engineer In at 08/10/2006 5:08 AM PSTdocumented in this encounter Plan of Treatment Not on filedocumented as of this encounter Visit Diagnoses Not on filedocumented in this encounter"
--- OUTSIDE RECORDS SUMMARY | ~2020-05-26 | XMS | Encounter Summary ---
Demographics + + + | Address | [address] | | | [place] [address] | + + + | Home Phone | | + + + | Preferred Language | Unknown | + + + | Marital Status | Single | + + + | Spiritism Affiliation | Unknown | + + + | Race | White | + + + | Ethnic Group | Not or | + + + Author + + + | Author | [facility] | + + + | Organization | [facility] | + + + | Address | Unknown | + + + | Phone | Unavailable | + + + Support + + + + + | Name | Relationship | Address | Phone | + + + + + | Kaila Ascencio | JOEY | [place] | | | | | [address] | | + + + + + Care Team Providers + +------+ + | Care Private Wealth Advisor Name | Role | Phone | + [...] [address] | | | | | | [place], [place] | | | | | | [address] | | | | | | [phone] | | | +--------+ + + + [...] + | CHEST, 1 | Radiologist 1: MARIOLA | | | | | TANNER, | Yasmine ALEJANDRO-Radiologist | | | | | PORTABLE | 2: FLAVIA GARNETT, | | | | | | YasminePORTABLE AP VIEW OF | | | | [...] | | + +---------+ + + | [facility] DEPARTMENT OF | | | | | RADIOLOGY | | | | + +---------+ + + documented in this encounter Visit Diagnoses Not on filedocumented in this encounter"
--- OUTSIDE RECORDS SUMMARY | ~2020-05-26 | XMS | Encounter Summary ---
Demographics + + + | Address | [address] | | | [place] [address] | + + + | Home Phone | | + + + | Preferred Language | Unknown | + + + | Marital Status | | + + + | Synagogue Affiliation | 1013 | + + + | Race | White | + + + | Ethnic Group | Not or | + + + Author + + + | Author | [facility] | | | and [place] | + + + | Organization | [facility] | | | and [...] Team Providers + +------+ + | Care Broom Machine Operator Name | Role | Phone | + +------+ + | Karla Payan PA-C | PCP | | + +------+ + Encounter Details +--------+ + + + + | Date | Type | Department | Care Team | Description | +--------+ + + + + | 03/24/ | Abstract | [facility] | Provider, | | | 2019 | | GASTROENTEROLOGY | MD [address] | | | | | [address] [place] | [place] | | | | | [address] [place] | [place] [address] | | | | | [address] | | | | | | [phone] | | | +--------+ + + + [...] | | 2019 | Visit | | PARTS FACILITATOR [address] | | | | | | [address] [place] | | | | | | [place] [address] | | | | | | [phone] | | | | | | | | +--------+---------+ + + + documented as of this encounter Procedures + +--------+ + + + | Procedure Name | Priori | Date/Time | Associated Diagnosis | Comments | | | ty | | | | + +--------+ + + + | EXTERNAL: | Routin | 09/26/2011 | | Results for this | | COLONOSCOPY | e | | | procedure are in the | | | | | | results section. | + +--------+ + + + | SPECIMEN TO | Routin | 09/26/2011 | | Results for this | | PATHOLOGY | e | | | procedure are in the | | | | | | results section. | + +--------+ + + + documented in this encounter Results EXTERNAL: COLONOSCOPY (09/26/2011) + + + + + + | Component | Value | Ref Range | Performed | Pathologist | | | | | At | Signature | + + + + + + | Colonoscopy | PROCEDURE PO DX: Mild | | EXTERNAL | | | | Distal gastritis, 3 | | LAB | | | Impression, | superficial antral | | | | | External | gastric ulcers, minimal | | | | | | sigmoid diverticulosis, | | | | | | minimal internal | | | | | | hemorrhoids. ~Александр | | | | | | Yasmine Chavez [facility] | | | | + + + + + + + +---------+ + + | Performing | Address | City/State/Zipcode | Phone Number | | Organization | | | | + +---------+ + + | EXTERNAL LAB | | | | + +---------+ + + Specimen to Pathology (09/26/2011) + + + + + + | Component | Value | Ref Range | Performed | Pathologist | | | | | At | Signature | + + + + + + | Path Final | MUCOSA, DUODENUM,BIOPSY: | | | | | Diagnosis A | Minimal chronic | | | | | | duodenitis. | | | | + + + + + + | Path Final | MUCOSA, ANTRUM,BIOPSY: | | | | | Diagnosis B | Moderate to severe | | | | | | chronic gastritis, | | | | | | disease activity mild; | | | | | | Glemsa stain positive | | | | | | for the presence of | | | | | | bacteria morphologically | | | | | | consistent with | | | | | | Helicobacter. | | | | + + + + + + + + | Specimen | + + | Tissue | + + documented in this encounter Visit Diagnoses Not on filedocumented in this encounter"
--- OUTSIDE RECORDS SUMMARY | ~2020-05-26 | XMS | Encounter Summary ---
Demographics + + + | Address | [address] | | | [place] [address] | + + + | Home Phone | | + + + | Preferred Language | Unknown | + + + | Marital Status | | + + + | Spiritism Affiliation | 1013 | + + + | Race | White | + + + | Ethnic Group | Not or | + + + Author + + + | Author | [facility] | | | and [place] | + + + | Organization | [facility] | | | [...] Team Providers + +------+ + | Care Riprap Man Name | Role | Phone | + +------+ + | Karla Payan PA-C | PCP | | + +------+ + Reason for Visit +--------+--------+ + | Reason | Onset | Comments | | | Date | | +--------+--------+ + | Other | 04/12/ | medication | | | 2020 | | +--------+--------+ + Encounter Details +--------+ + + + + | Date | Type | Department | Care Team | Description | +--------+ + + + + | 04/12/ | Telephone | [facility] | Tressaire, Galo M, | Other (medication ) | | 2020 | | GASTROENTEROLOGY | FERRY OPERATOR [address] | | | | | [address] | [address] [place] | | | | | [address] [place], [place] | [place] [address] | | | | | [address] | [phone] | | | | | [phone] | | | +--------+ + + + [...] Encounter - Soha Topete Medical Assistant - 04/12/2020 10:42 AM PDTPer Galo Garcia Notified patient that [place] ordered Cholestyramine 4g by mouth 3 times daily for 30 days. Will need to take 2-3 hours after morning medications. Will need to d/c Colestipol. [facility] Patient verbalized understanding. elephone Encounter - Pearl Medical Assistant - 04/12/2020 9:06 AM PDTReceived a call from patient stating that sh e still continues with extremely loose stools. Patient was taking Colestipol 2 tab in the mo rning, 1 tab at noon, and 2 tablet at bedtime. From 04/01-04/06. Patient started taking 2 tab 3 x daily, from 04/07-04/11. That did not seem to help either w ith her loose stools. Routing to [place] to advice. documented in this encounter Plan of Treatment +--------+---------+ + + + | Date | Type | Specialty | Care Team | Description | +--------+---------+ + + + | 07/01/ | Office | Gastroenterology | Galo Majano, | | | 2019 | Visit | | [place] [address] | | | | | | [place] | | | | | | [place] [address] | | | | | | [phone] | | | | | | | | +--------+---------+ + + + documented as of this encounter Visit Diagnoses Not on filedocumented in this encounter"
--- OUTSIDE RECORDS SUMMARY | ~2020-05-26 | XMS | Encounter Summary ---
Demographics + + + | Address | [address] | | | [place] [address] | + + + | Home Phone [...] [place] | | | | | [address] | | + + + + + Care Team Providers + +------+ + | Care Health And Safety Director Name | Role | Phone | [...] as of this encounter Progress Notes Interface, Naval Gunfire Liaison Officer In - 08/13/2006 3:[address] [facility] [place] [address] [address] or December 03, 1998 ARLENE WEST MD [address] [place] [address] [place] [address] RE:MAGI GÓMEZ MR#:[id number] West: Mrs. Gómez was seen in the Urology Clinic last week for her problem of chronic and recurring right flank pain and pyelonephritis. As you know, she was worked up by Dr. 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 Sincerely, Keshav Prado M.D. DILIP/cornelia [id number] signed by Interface, Naval Gunfire Liaison Officer In at 08/13/2006 3:11 AM PSTdocume nted in this encounter Plan of Treatment Not on filedocumented as of this encounter Visit Diagnoses Not on filedocumented in this encounter"
--- OUTSIDE RECORDS SUMMARY | ~2020-05-26 | XMS | Encounter Summary ---
Demographics + + + | Address | [address] | | | [place] [address] | + + + | Home Phone | | + + + | Preferred Language | Unknown | + + + | Marital Status | | + + + | Hindu Affiliation | 1013 | + + + | Race | White | + + + | Ethnic Group | Not or | + + + Author + + + | Author | [facility] | | | and [place] | + + + | Organization | [facility] | | | and [place] | + + + | Address | Unknown | + + + | Phone | Unavailable | + + + Support + + +---------+ + | Name | Relationship | Address | Phone | + + +---------+ + | Aure Ascenico | ECON | Unknown | | + + +---------+ + Care Team Providers + +------+ + | Care Language Teacher Name | Role | Phone | + [...] [place] | | | | | | [address] | (Fax) | | | | | [phone] | | | +--------+ + + + [...] | | 2019 | Visit | | ESCALATION ENGINEER [address] | | | | | | [address] [place] | | | | | | [place] [address] | | | | | | [phone] | | | | | | | [...]
--- OUTSIDE RECORDS SUMMARY | ~2020-05-26 | XMS | Encounter Summary ---
Demographics + + + | Address | [address] | | | [place] [address] | + + + | Home Phone | | + + + | Preferred Language | Unknown | + + + | Marital Status | | + + + | Muslim Affiliation | 1013 | + + + [...] Team Providers + +------+ + | Care Keysmith Name | Role | Phone | + +------+ + | aKrla Payan PA-C | PCP | | + +------+ + Reason for Visit + + + | Reason | Comments | + + + | Screening For | | | Communicable Disease | | + + + Encounter Details +--------+ + + + + | Date | Type | Department | Care Team | Description | +--------+ + + + + | 04/19/ | Hospital | [facility] | | Preop testing | | 2020 | Encounter | [facility] | | (Primary Dx) | | | | CARE [address] | | | | | | [place] | | | | | | [address] | | | | | | [phone] | | | +--------+ + + + [...] + + documented as of this encounter Medications at Time of Discharge + + + +---------+ + + | Medication | Sig | Dispensed | Refills | Start | End Date | | | | | | Date | | + + + +---------+ + + | atenolol | Take 100 mg by mouth | | 0 | | | | (TENORMIN) 100 MG | Daily. | | | | | | tablet | | | | | | + + + +---------+ + + | B Complex Vitamins | Take 1 tablet by | | 0 | | | | (B COMPLEX PO) | mouth Daily. | | | | | + + + +---------+ + + | baclofen | Take 10 mg by mouth | | 0 | | | | (LIORESAL) 10 mg | nightly . | | | | | | tablet | | | | | | + + + +---------+ + + | buPROPion | Take 150 mg by mouth | | 0 | | | | (WELLBUTRIN SR) 150 | 2 times daily. | | | | | | mg 12 hr tablet | | | | | | + + + +---------+ + + | | Take by mouth. | | 0 | | | | [id number] | | | | | | | INC [phone] MG | | | | | | | TABS | | | | | | + + + +---------+ + + | cholecalciferol | Take 25 mcg by mouth | | 0 | | | | (VITAMIN D-3) 25 mcg | Daily. | | | | | | (1,000 units) | | | | | | | tablet | | | | | | + + + +---------+ + + | clindamycin | apply topically to | | 0 | 02/10/20 | | | (CLEOCIN T) 1% | affected area twice | | | 20 | | | external solution | a day | | | | | + + + +---------+ + + | doxycycline | Take 100 mg by mouth | | 0 | | | | (MONODOX) 100 mg | 2 times daily. | | | | | | capsule | | | | | | + + + +---------+ + + | Ferrous Sulfate | Take 1 tablet by | | 0 | | | | (IRON PO) | mouth Daily. | | | | | + + + +---------+ + + | fluticasone | 1 spray by Nasal | | 0 | | | | (FLONASE) 50 | route Daily. | | | | | | mcg/nasal spray | | | | | | + + + +---------+ + + | | Take 25 mg by mouth | | 0 | | | | hydroCHLOROthiazide | Daily. | | | | | | 25 mg tablet | | | | | | + + + +---------+ + + | Loperamide HCl | Take by mouth. | | 0 | | | | (IMODIUM PO) | | | | | | + + + +---------+ + + | loratadine | Take 10 mg by mouth | | 0 | | | | (CLARITIN) 10 mg | Daily. | | | | | | tablet | | | | | | + + + +---------+ + + | losartan (COZAAR) | Take 100 mg by mouth | | 0 | | | | 100 MG tablet | Daily. | | | | | + + + +---------+ + + | nicotine | apply 1 patch | | 0 | 01/18/ | | | (NICODERM) 7 mg/24 | topically once daily | | | 20 | | | hr | as directed | | | | | + + + +---------+ + + | [place]-3 Fatty | Take 1 tablet by | | 0 | | | | Acids (FISH OIL PO) | mouth Daily. | | | | | + + + +---------+ + + | pravastatin | Take 40 mg by mouth | | 0 | | | | (PRAVACHOL) 40 MG | nightly. | | | | | | tablet | | | | | | + + + +---------+ + + | Probiotic Product | Take 1 tablet by | | 0 | | | | (TRIPLE PROBIOTIC | mouth Daily. | | | | | | PO) | | | | | | + + + +---------+ + + | TGT PSYLLIUM FIBER | Take 3 tablets by | | 0 | | | | PO | mouth Daily. | | | | | + + + +---------+ + + | aspirin 81 mg EC | Take 81 mg by mouth | | 0 | | | | tablet | Daily. | | | | 0 | + + + +---------+ + + | calcium | Take 1 tablet by | | 0 | | | | citrate-vitamin D | mouth Daily. | | | | 0 | | (CITRACAL MAXIMUM) | | | | | | | 315-250 MG-UNIT TABS | | | | | | + + + +---------+ + + | cholestyramine | Take 4 g by mouth 3 | 90 | 0 | 04/12/20 | | | (QUESTRAN) 4 GM/DOSE | times daily for 30 | packet | | 20 | 0 | | powder | days 4 g = 1 scoop. | | | | | + + + +---------+ + + | omeprazole | Take 20 mg by mouth | | 0 | | | | (PRILOSEC) 20 mg | every morning | | | | 0 | | capsule | (before breakfast). | | | | | + + + +---------+ + + | potassium chloride | Take 10 mEq by mouth | | 0 | | | | (KLOR-CON) 10 MEQ | 2 times daily. | | | | 0 | | ER tablet | | | | | | + + + +---------+ + + | VIT | Take 1 tablet by | | 0 | | | | [id number] PO | mouth Daily. | | | | 0 | + + + +---------+ + + documented as of this encounter Miscellaneous Notes [facility] Triage Notes - Emily Sparks, Resource Management Specialist - 04/19/2020 8:47 AM PDTPRE-PROCED URE COVID TEST (Asymptomatic Testing Only) Affix Patient Label [] Photo ID Verified Patient Name:Magi Gómez Provider:No name on file. :1955 Date:04/19/20 MyChart: Activated Symptom Screen: [] Patient identified as having at least one of the symptoms below: ? Cough, Shortness of Breath, Fever >100.4, Chills, Sore Throat, Body Aches or Muscle Pain, Headache, nausea, vomiting, diarrhea, change in smell and/or taste [] Patient is not symptomatic of symptoms consistent with COVID-19 Testing Protocol: MA/RN Proceed to testing if ANY of the following conditions are present: DRIVE THRU SWAB SCREENING [x] Asymptomatic, regardless of age, pre-procedure screening only [] Asymptomatic - testing requested by authorized [facility] personnel, [facility] Infection Prevention Nurse or Caregiver Health [] Asymptomatic, regardless of age, pre-travel screening only [] Asymptomatic, regardless of age, housing screening PROVIDER EVALUATION REQUIRED [] Patient identified as having symptoms associated with COVID-19, patient encouraged to notify their PCP or procedure ordering physician of symptoms. Discharge: [x] Social Distancing/Quarantine Guidelines documented in this encounter Plan of Treatment +--------+---------+ + + + | Date | Type | Specialty | Care Team | Description | +--------+---------+ + + + | 07/01/ | Office | Gastroenterology | Sherinestephanie Galo Berto, | | | 2019 | Visit | | MEDICAL ANTHROPOLOGY DIRECTOR [address] | | | | | | [address] [place] | | | | | | [place] [address] | | | | | | [phone] | | | | | | | [...] + + documented in this encounter Results Coronavirus (COVID-19) NAAT (04/19/2020 8:50 AM PDT) [...] + + | Performed at: 01 - [place] [address], | REFERENCE LAB | | [place], [place] [id number] Alligator Shear Operator: Isra Spears MD, Phone: | [facility] | | [phone] | | + + + + + + + + | Performing | Address | City/State/Zipcode | Phone Number | | Organization | | | | + + + + + | REFERENCE LAB | [address] | [place], [place] | [phone] | | [facility] | [facility] | [address] | | + + + + + documented in this encounter Visit Diagnoses + + | Diagnosis | + + | Preop testing - Primary Preoperative examination, unspecified | + + documented in this encounter"
--- OUTSIDE RECORDS SUMMARY | ~2020-05-26 | XMS | Encounter Summary ---
Demographics + + + | Address | [address] | | | [place] [address] | + + + | Home Phone | | + + + | Preferred Language | Unknown | + + + | Marital Status | | + + + | Temple Affiliation | 1013 | + + + | Race | White | + + + | Ethnic Group | Not or | + + + Author + + + | Author | [facility] | | | and [place] | + + + | Organization | [facility] | | | [...] Team Providers + +------+ + | Care Transfusion Aide Name | Role | Phone | + +------+ + | Karla Payan PA-C | PCP | | + +------+ + Reason for Visit Auth/Cert +--------+--------+ + + + + | Status | Reason | Specialty | Diagnoses / | Referred By | Referred To | | | | | Procedures | Contact | Contact | +--------+--------+ + + + + | | | | Diagnoses | | Steve, | | | | | Diarrhea, | | Chele Sunshine, | | | | | unspecified | | MD [address] | | | | | type LFT | | [address] | | | | | elevation | | [place], | | | | | Procedures | | [place] [address] | | | | | [place] | | Phone: | | | | | ESOPHAGOGAST | | [phone] | | | | | RODUODENOSCO | | Fax: | | | | | PY TRANSORAL | | [phone] | | | | | DIAGNOSTIC | | | | | | | [place] EGD | | | | | | | TRANSORAL | | | | | | | BIOPSY | | | | | | | SINGLE/MULTI | | | | | | | PLE EGD | | | +--------+--------+ + + + + Encounter Details +--------+---------+ + + + | Date | Type | Department | Care Team | Description | +--------+---------+ + + + | 04/22/ | Surgery | [facility] | Chele Lynn | EGD | | 2019 | | [facility] | MD Scott [address] | | | | | [address] | [address] | | | | | [place] | [place] [address] | | | | | [address] | [phone] | | | | | [phone] | | | +--------+---------+ + + + [...] + + + | Blood Pressure | 152/71 | 04/22/2020 10:20 AM | | | | | PDT | | + + + + + | Pulse | 74 | 04/22/2020 10:20 AM | | | | | PDT | | + + + + + | Temperature | 36.6 C (97.9 F) | 04/22/2020 9:16 AM | | | | | PDT | | + + + + + | Respiratory Rate | 18 | 04/22/2020 10:20 AM | | | | | PDT | | + + + + + | Oxygen Saturation | 100% | 04/22/2020 10:20 AM | | | | | PDT | | + + + + + | Inhaled Oxygen | - | - | | | Concentration | | | | + + + + + | Weight | 72.8 kg (160 lb 7.9 | 04/22/2020 9:16 AM | | | | oz) | PDT | | + + + + + | Height | 160 cm (5' 3") | 04/22/2020 9:16 AM | | | | | PDT | | + + + + + | Body Mass Index | 28.43 | 04/22/2020 9:16 AM | | | | | PDT | | + + + + + documented in this encounter Discharge Instructions Emilee Carter RN - 04/22/2020 Recovery After Procedural Sedation (Adult) You have been given medicine by vein to make you sleep during your surgery. This may have i ncluded both a pain medicine and sleeping medicine. Most of the effects have worn off. But y ou may still have some drowsiness for the next 6 to 8 hours. Home care Follow these guidelines when you get home: For the next 8 hours, you should be watched by a responsible adult. This person should m robin sure your condition is not getting worse. Don't drink any alcoholfor the next [address], operate dangerous machinery, or make important business or personal decisio nsduring the next 24 hours. Note: Your healthcare provider may tell you not to take any medicine by mouth for pain or s leep in the next 4 hours. These medicines may react with the medicines you were given in the hospital. This could cause a much stronger response than usual. Follow-up care Follow up with your healthcare provider if you are not alert and back to your usual level o f activity within 12 hours. When to seek medical advice Call your healthcare provider right away if any of these occur: Drowsiness gets worse Weakness or dizziness gets worse Repeated vomiting You can't be awakened Fever New rash Allyssa last reviewed this educational content on 04/20/201919992665-3717 [employer]. [address] [place] [address]. All righ ts reserved. This information is not intended as a substitute for professional medical care. Always follow your healthcare professional's instructions. documented in this encounter Medications at Time of Discharge [...] | | 0 | | | | [id number] | | | | | | | [...] apply 1 patch | | 0 | 01/19/20 | | | (NICODERM) 7 mg/24 | topically once daily | | | 20 | | | hr | as directed | | | | | + + + +---------+ + + | [place]-3 Fatty | Take 1 tablet by | [...] + + documented as of this encounter H&P Notes Chele Lynn MD - 04/22/2020 9:59 AM PDT PRE-ENDOSCOPY HISTORY AND PRE-SEDATION ASSESSMENT PATIENT NAME: Magi Gómez : 1955 TODAY'S DATE: 04/22/2020 PLANNED PROCEDURE: egd PERTINENT HISTORY/INDICATION FOR PROCEDURE: Magi Gómez is a 65 y.o. female who is under going endoscopy for diarrhea, assess for celiac disease. 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 ~Александр Chavez M.D. [facility] ELBOW SURGERY Left FINGER TRIGGER RELEASE 2011 Dr. Martell HYSTERECTOMY Bilateral Hysterectomy with bladder sling, bowel reconstruction about 11 years ago, bilateral ovarie s removed. INCONTINENCE SURGERY KIDNEY SURGERY 1998 Removal of 3rd kidney SHOULDER SURGERY Right 05/2016 Dr. Pantoja SKIN EXCISION 2018 TONSILLECTOMY AND ADENOIDECTOMY 1963 TUBAL LIGATION HOME MEDS: No current facility-administered medications on file prior to encounter. Current Outpatient Medications on File Prior to Encounter Medication Sig Dispense Refill atenolol (TENORMIN) 100 MG tablet Take 100 mg by mouth Daily. B Complex Vitamins (B COMPLEX PO) Take 1 tablet by mouth Daily. baclofen (LIORESAL) 10 mg tablet Take 10 mg by mouth 3 times daily. buPROPion (WELLBUTRIN SR) 150 mg 12 hr tablet Take 150 mg by mouth 2 times daily. EMREONM-SMIROMTELI-FQUY 333-133-8.3 MG TABS Take by mouth. cholecalciferol [...] 1 patch topically once daily as directed [place]-3 Fatty Acids (FISH OIL PO) Take 1 tablet by mouth Daily. omeprazole (PRILOSEC) 20 mg capsule Take 20 mg by mouth every morning (before breakfast ). pravastatin (PRAVACHOL) 40 MG tablet Take 40 mg by mouth nightly. Probiotic Product (TRIPLE PROBIOTIC PO) Take 1 tablet by mouth Daily. TGT PSYLLIUM FIBER PO Take 3 tablets by mouth Daily. ALLERGIES Allergies Allergen Reactions Sulfa Antibiotics Hives and Rash Glucophage [Metformin] Diarrhea, Nausea And Vomiting and Other (See Comments) Reaction: Nausea, vomiting, diarrhea , urinary retention, edema Lipitor [Atorvastatin] Nausea And Vomiting Lisinopril Diarrhea and Nausea And Vomiting Tape [Adhesive & Tape] Other (See Comments) "Skin comes off with the adhesive on band aids" Mallampati Class 2 (upper half of tonsil fossa) [place] Society of Anesthesia Grade:ASA 2 - A patient with mild systemic disease Sedation Plan:Moderate sedation EXAMINATION: BP 143/55 | Pulse 72 | Temp 36.6 C (97.9 F) (Temporal) | Resp 16 | Ht 1.6 m (5' 3") | Wt 72.8 kg (160 lb 7.9 oz) | SpO2 99% | No | BMI 28.43 kg/m General: Alert and oriented Throat: Normal Lungs: Clear Heart: Regular rate and rhythm with out significant murmur Abdomen: flat, normal bowel sounds. Soft, nontender 1. Available medical records have been reviewed. 2. Medication list reviewed. IMPRESSION: Patient appropriate for endoscopy. PLAN: 1. Proceed with procedure as stated above with moderate sedation/analgesia 2. Procedure, indications, risks and alternatives explained to patient/family and they agre ed to proceed and consent was signed. 3. Patient will be reevaluated immediately (1-2 minutes) before sedation administration and approved for the plan as stated above. Electronically Signed by: Chele Lynn MD 04/22/2020 [facility] VERIFICATION OF CONSENT (PARQ) The patient was counseled regarding the procedure, its indications, risks, potential compli cations and alternatives. Any questions were answered. Consent was obtained. Chele Lynn MD, 04/22/2020 9:59 AM [facility] Portions of this chart may have been created with [employer] voice recognition software. Occasi onal wrong-word or sound-alike substitutions may have occurred due to the inherent sears itations of voice recognition software. Please read the chart carefully and recognize, using context, where these substitutions have occurred documented in thi s encounter Miscellaneous Notes D-C Instructions Provation - Chele Lynn MD - 04/22/2020 9:47 AM PDTDischarge Ins tructions for Upper Endoscopy Patient: Magi Gómez : 1955 Acct: [id number] Exam Date: April Doctor: CHELE LYNN MD The chances of difficulty following this procedure are minimal. The following instructions will assist you in your recovery. 1. Do Not eat or drink anything for 1 hour. Try sips of water first. If tolerated, resume your regular diet or one recommended by your physician. 2. Do not drive, operate machinery, make critical decisions, or do activities that require coordination or balance for 24 hours. 3. You may experience a sore throat for 24 - 48 hours. You may use throat lozenges or gargle with warm salt water to relieve the discomfort. 4. Because air was put into your stomach druing the procedure, you may experience some belching. 5. Do not use any medication containing aspirin for 10 days, unless otherwise directed by your physician. 6. Sometimes the medications given to you druing the exam can aggravate the veins. The chemical irritation can cause inflammation or pain along the arm with redness, swelling and warmth. This does not mean there is an infection. You can treat the affected area by applying warm, wet compresses (towels) 4 times a day for 20 minutes at a time until inflammation is resolved 7. Report to your doctor: Chills and/or fever over 100 Persistent vomiting or vomiting with blood/nasal regurgitation Severe abdominal pain, other than gas cramps Severe chest pain Black, tarry stools You may reach your physician at . If unable to reach your physician, call [facility] Emergency Department at Ext. 2500 Your doctor recommends these additional instructions: We are waiting for your pathology results. Resume your previous diet. Take Prilosec OTC 20 mg by mouth once a day for six weeks. Return to your GI office as previously scheduled. These instructions have been explained to the patient and/or escort. A copy has been given to the patient/escort. Nurse Signature Patient Signature Escort Signature Date CHELE LYNN MD 04/22/2020 10:23:56 AM This report has been signed electronically. documented in this encounter Plan of Treatment +--------+---------+ + + + | Date | Type | Specialty | Care Team | Description | +--------+---------+ + + + | 07/01/ | Office | Gastroenterology | Galo Majano, | | 2019 | Visit | | GEOCHEMISTRY TEACHER [address] | | | | | | [place] | | | | | | [place] [address] | | | | | | [phone] | | | | | | | [...] + +--------+ + + + | *TERMED* GA UPPER GI | Routin | 04/22/2020 | [...] + + documented in this encounter Results LABS - EXTERNAL SCAN (04/30/2020 12:00 AM PDT) + + + | Narrative | Performed At | + + + | Ordered by an | | | unspecified provider. | | + + + LABS - EXTERNAL SCAN (04/30/2020 12:00 AM PDT) + + + | Narrative | Performed At | + + + | Ordered by an | | | unspecified provider. | | + + + EGD (04/22/2020 9:47 AM PDT) + + | Specimen | + + | | + + + + + | Narrative | Performed At | + + + | [facility] | [facility] | | [facility]ologyPatient Name: Magi Gómez | PROVATION | | S.Procedure Date: 04/22/2020 9:47 AMMRN: [id number] Number: | | | [id number] of : 1955Note Status: FinalizedAttending MD: | | | CHELE LYNN , MDProcedure Type: Upper GI | | | [...] AMNumber of Addenda: 0 | | | [facility] | | | - Duodenitis. [...] |Number of Addenda: 0 | | | [facility] | | + + + [...] performance | | | characteristics determined by [facility]. It has not been | | | cleared or approved by the U.S. Food and Drug Administration. The | | | FDA has determined that such clearance or approval is not necessary. | | | This test is used for clinical purposes. It should not be regarded | | | as investigational or for research. [facility] is certified | | | under the Clinical Laboratory Improvement Amendments of 1988 (CLIA) | | | as qualified to perform high complexity clinical laboratory testing. | | | PERFORMING LABORATORY: The technical component was performed by | | | [facility], [address] [facility] [address] (Medical | | | Director: Jennie Roberts MD; IA# [id number]). Professional | | | interpretation was performed by [facility] | | | [facility], [address] [place], [place] | | | [address] (Ux Architect: Antoni Prince M.D.). Diagnostician: | | | Antoni Prince MD Pathologist Electronically Signed 04/23/2020 | | | | | + + + + +---------+ + + | Performing | Address | City/State/Zipcode | Phone Number | | Organization | | | | + +---------+ + + | [place] [facility] | | | | | [facility] | | | | + +---------+ + + LABS - EXTERNAL SCAN (04/20/2020 12:00 AM PDT) + + + | Narrative | Performed At | + + + | Ordered by an | | | unspecified provider. | | + + + LABS - EXTERNAL SCAN (04/20/2020 12:00 AM PDT) + + + | Narrative | Performed At | + + + | Ordered by an | | | unspecified provider. | | + + + documented in this encounter Visit Diagnoses + + | Diagnosis | + + | Diarrhea, unspecified type | + + | LFT elevation Other abnormal blood chemistry | + + documented in this encounter Admitting Diagnoses + + | Diagnosis | + + | Diarrhea, unspecified type | + + | LFT elevation Other abnormal blood chemistry | + + documented in this encounter Administered Medications + +--------+ +---------+------+------+ | Medication Order | MAR | Action | Dose | Rate | Site | | | Action | Date | | | | + +--------+ +---------+------+------+ | benzocaine (HURRICAINE) 20% | Given | 04/22/20 | 1 spray | | | | non-aerosol spray PRN, Starting | | 20 10:04 | | | | | Marissa 04/22/20 at 1004 | | AM PDT | | | | + +--------+ +---------+------+------+ +---+---+ | | | +---+---+ + +-------+ +--------+---+---+ | fentaNYL (PF) injection PRN, | Given | 04/22/20 | 25 mcg | | | | Starting Marissa 04/22/20 at 1008 | | 20 10:17 | | | | | | | AM PDT | | | | + +-------+ +--------+---+---+ +-------+ +--------+---+---+ | Given | 04/22/20 | 50 mcg | | | | | 20 10:09 | | | | | | AM PDT | | | | +-------+ +--------+---+---+ | Given | 04/22/20 | 50 mcg | | | | | 20 10:08 | | | | | | AM PDT | | | | +-------+ +--------+---+---+ +---+---+ | | | +---+---+ + +---------+ +--------+-------+---+ | lactated ringers (LR) infusion | New Bag | 04/22/20 | 1,000 | 100 | | | at 100 mL/hr, Intravenous, | | 20 9:49 | mLs | mL/hr | | | CONTINUOUS, Starting Marissa 04/22/20 | | AM PDT | | | | | at 0945, Pre-op | | | | | | + +---------+ +--------+-------+---+ +---+---+ | | | +---+---+ + +-------+ +------+---+---+ | midazolam (VERSED) 5 mg/mL | Given | 04/22/20 | 1 mg | | | | injection PRN, Starting Marissa | | 20 10:17 | | | | | 04/22/20 at 1006 | | AM PDT | | | | + +-------+ +------+---+---+ +-------+ +------+---+---+ | Given | 04/22/20 | 2 mg | | | | | 20 10:11 | | | | | | AM PDT | | | | +-------+ +------+---+---+ | Given | 04/22/20 | 1 mg | | | | | 20 10:10 | | | | | | AM PDT | | | | +-------+ +------+---+---+ +---+---+ | | | +---+---+ documented in this encounter
--- OUTSIDE RECORDS SUMMARY | ~2020-05-26 | XMS | Encounter Summary ---
Demographics + + + | Address | [address] | | | [place] [address] | + + + | Home Phone | | + + + | Preferred Language | Unknown | + + + | Marital Status | | + + + | Temple Affiliation | 1013 | + + + | Race | White | + + + | Ethnic Group | Not or | + + + Author + + + | Author | [facility] | | | and [place] | + + + | Organization | [facility] | | | [...] Team Providers + +------+ + | Care Spring Machine Operator Name | Role | Phone [...] | | 2020 | | GASTROENTEROLOGY | INDUSTRIAL GREEN SYSTEMS DESIGNER [address] | | | | | [address] | [address] [place] | | | | | [address] [place], [place] | [place] [address] | | | | | [address] | [phone] | | | | | [phone] | | | +--------+ + + + [...] Miscellaneous Notes Telephone Encounter - Soha Topete Associate Spa Director - 05/03/2020 4:22 PM PDTCyrus okay for [...] that. Her PCP is Karla Payan at [phone] signed by Mildred Perez at 05/03/2020 2:20 PM PDTdocumented in this encounter Plan of Treatment +--------+---------+ + + + | Date | Type | Specialty | Care Team | Description | +--------+---------+ + + + | 07/01/ | Office | Gastroenterology | Galo Majano, | | 2019 | Visit | | INDUSTRIAL GREEN SYSTEMS DESIGNER [address] | | | | | | [place] | | | | | | [place] [address] | | | | | | [phone] | | | | | | | | +--------+---------+ + + + documented as of this encounter Visit Diagnoses Not on filedocumented in this encounter"
--- OUTSIDE RECORDS SUMMARY | ~2020-05-26 | XMS | Encounter Summary ---
Demographics + + + | Address | [address] | | | [place] [address] | + + + | Home Phone | | + + + | Preferred Language | Unknown | + + + | Marital Status | | + + + | Confucianism Affiliation | 1013 | + + + | Race | White | + + + | Ethnic Group | Not or | + + + Author + + + | Author | [facility] | | | and [place] | + + + | Organization | [facility] | | [...] Team Providers + +------+ + | Care Principal Technical Architect Name | Role | Phone | + [...] + + | 04/14/ | Telephone | [facility] | Chele Wilson | Testing (COVID) | | 2019 | | GASTROENTEROLOGY | MD Jong [address] | | | | | [address] | [address] [place] | | | | | [address] [place], [place] | [place] [address] | | | | | [address] | [phone] | | | | | [phone] | | | +--------+ + + + [...] | | | | | [address] [facility] | | | | | | [place] [address] | | | | | | [phone] | | | | | | | | +--------+---------+ + + + documented as of this encounter Visit Diagnoses Not on filedocumented in this encounter"
--- OUTSIDE RECORDS SUMMARY | ~2020-05-26 | XMS | Encounter Summary ---
Demographics + + + | Address | [address] | | | [place] [address] | + + + | Home Phone | | + + + | Preferred Language | Unknown | + + + | Marital Status | | + + + | Latter Day Affiliation | 1013 | + + + [...] Team Providers + +------+ + | Care Special Order Jeweler Name | Role | Phone | + +------+ + | Karla Payan PA-C | PCP | | + +------+ + Reason for Visit + +--------+ + | Reason | Onset | Comments | | | Date | | + +--------+ + | Appointment Question | 05/25/ | | | | 2020 | | + +--------+ + Encounter Details +--------+ + + + + | Date | Type | Department | Care Team | Description | +--------+ + + + + | 05/25/ | Telephone | [facility] | Chele Wilson | Appointment Question | | 2019 | | GASTROENTEROLOGY | MD Jong [address] | | | | | [address] | [address] [place] | | | | | [address] [place], [place] | [facility] [place] [address] | | | | | [address] | [phone] | | | | | [phone] | | | +--------+ + + + [...] this encounter Miscellaneous Notes Telephone Encounter - Javi Hebert - 05/25/2020 3:37 PM PDTPatient LVM at 11 :15 AM to day in regards to questions regarding her GI care. Noted that she sent a note on mychart to Galo. Routing to clinical staff. Pt phone number: [phone] documented in this encounter Plan of Treatment +--------+---------+ + + + | Date | Type | Specialty | Care Team | Description | +--------+---------+ + + + | 07/01/ | Office | Gastroenterology | Galo Majano, | | 2019 | Visit | | SECURITY SITE SUPERVISOR [address] | | | | | | [address] [place] | | | | | | [place] [address] | | | | | | [phone] | | | | | | | | +--------+---------+ + + + documented as of this encounter Visit Diagnoses Not on filedocumented in this encounter"
--- OUTSIDE RECORDS SUMMARY | ~2020-05-26 | XMS | Encounter Summary ---
Demographics + + + | Address | [address] | | | [place] [address] | + + + | Home Phone [...] [place] | | | | | [address] | | + + + + + Care Team Providers + +------+ + | Care Wastewater Project Manager Name | Role | Phone | [...] as of this encounter Procedure Notes Interface, Distillation Operator Helper In - 08/10/2006 5:[address] [address] [facility] OPERATION RECORD Med Rec No.: [id number] Date: [...] Next, the anterior fascia was closed with lckpbv-hm-bzysp 0-Maxon. Prior to starting the closure, we placed a #20 Slovak red Macias catheter into the pleural cavity [...] Prado M.D. Resident, Urology Professor, Surgery/Urology [id number]:[id number] #[id number] CC: documente d in this encounter Plan [...] | Transcriptions | + + | Interface, Distillation Operator Helper In - 08/10/2006 5:08 AM PST | | [address] | | [place], [place] [address] | | [facility] Rec No.: | | [id number] Date: [...] a running 3-0 Chromic. Next, the 10th res67qh ribs were | | approximated with a single 0-Biosyn and the posterior fasciawas approximated using a | | running 0-Biosyn. Next, the anterior fascia wasclosed with ijvrqd-bp-ckhhs 0-Maxon. | | Prior to starting the closure, weplaced a #20 Slovak red Macias catheter into | | the [...] | Urology Professor, Surgery/UrologyCK:x11D: 01/10/1999T: | | 01/11/1999#[id number]: | |incision was made over the 11th [...] the anterior fascia was | |closed with yfdkia-pf-suyfz 0-Maxon. Prior to starting the closure, we | |placed a #20 Slovak red Macias catheter into the pleural cavity [...] | | | | | | | |#[id number] | | | | | |[id number] | |CC: | + + documented in this encounter Visit Diagnoses Not on filedocumented in this encounter"
--- OUTSIDE RECORDS SUMMARY | ~2020-05-26 | XMS | Encounter Summary ---
Demographics + + + | Address | [address] | | | [place] [address] | + + + | Home Phone [...] + + + | Author | [facility] | | | and [place] | + + + | Organization | [facility] | | | [...] Team Providers + +------+ + | Care Basket Mender Name | Role | Phone | + [...] + | 05/14/ | Telephone | [facility] | Galo Majano, | Medication Question | | 2019 | | GASTROENTEROLOGY | PELT GRADER [address] | | | | | [address] | [address] [place] | | | | | [address] [place], [place] | [place] [address] | | | | | [address] | [phone] | | | | | [phone] | | | +--------+ + + + [...] Miscellaneous Notes Telephone Encounter - Soha Topete Health And Wellness Instructor - 05/14/2020 12:09 PM PDTContinue wi th Imodium as discussed during visit. Notified patient that she can continue with Imodium as discussed during the office visit. Patient verbalized understanding. She stated that she is heading to the ER due to a kidney i nfection and her blood pressure dropping, also that she has been feeling very nauseous. Elec tronically signed by Soha Topete Health And Wellness Instructor at 05/14/2020 12:11 PM PDTTelephone Enc Soha Martinez Health And Wellness Instructor - 05/14/2020 10:10 AM PDTRouting to [place] to [facility]. eleph one Encounter - Javi Hebert - 05/14/2020 8:44 AM PDTName of Caller: Magi Darcy Gómez Name of Patient: Magi Gómez Reason for call: Patient called and stated that she completed her 6 weeks regime and is now taking chewy pepto bismol, can she continue with imodium medication. Routing to clinical aff. Provider/Nurse: Galo Majano Call back number: [phone] documented in this encou nter Plan of Treatment +--------+---------+ + + + | Date | Type | Specialty | Care Team | Description | +--------+---------+ + + + | 07/01/ | Office | Gastroenterology | Galo Majano, | | | 2019 | Visit | | PELT GRADER [address] | | | | | | [facility] [address] [place] | | | | | | [place] [address] | | | | | | [phone] | | | | | | | | +--------+---------+ + + + documented as of this encounter Visit Diagnoses Not on filedocumented in this encounter"
--- OUTSIDE RECORDS SUMMARY | ~2020-05-26 | XMS | Encounter Summary ---
Demographics + + + | Address | [address] | | | [place] [address] | + + + | Home Phone | | + + + | Preferred Language | Unknown | + + + | Marital Status | | + + + | Rastafari Affiliation | 1013 | + + + | Race | White | + + + | Ethnic Group | Not or | + + + Author + + + | Author | [facility] | | | and [place] | + + + | Organization | [facility] | | | and [...] Team Providers + +------+ + | Care Data Entry Manager Name | Role | Phone | [...] | | | Procedures | | [place] [address] | | | | | [place] | | Phone: | | | | | ESOPHAGOGAST | | [phone] | | | | | RODUODENOSCO | | Fax: | | | | | PY TRANSORAL | | [phone] | | | | | DIAGNOSTIC | | | | | | | [place] EGD | | | | | | [...] + + | 04/22/ | Hospital | [facility] | Chele Lynn | Diarrhea, | | 2020 | Encounter | MED CTR MP INTRA OP | MD Scott [address] | unspecified type; | | | | [address] | [address] [place] | LFT elevation | | | | [place], [place] | [place] [address] | | | | | [address] | [phone] | | | | | [phone] | | | +--------+ + + + [...] You can't be awakened Fever New rash [facility] last reviewed this educational content on 04/20/201919991923-8092 [employer]. [address] [place] [address]. All righ ts reserved. This information is [...] | | 0 | | | | [id number]-[id number]-X | | | | | | | [...] + + + +---------+ + + | Willard-3 Fatty | Take 1 tablet by | [...] diverticulosis, minimal internal hemorrhoids. ~Александр Chavez M.D. [facility] ELBOW SURGERY Left FINGER TRIGGER [...] 150 mg by mouth 2 times daily. AJFOZNY-[id number]-YPVE [id number] MG TABS Take by mouth. cholecalciferol [...] 1 patch topically once daily as directed Willard-3 Fatty Acids (FISH OIL PO) Take 1 [...] Class 2 (upper half of tonsil fossa) [place] Society of Anesthesia Grade:ASA 2 - A [...] Electronically Signed by: Chele Lynn MD 04/22/2020 [facility] VERIFICATION OF CONSENT (PARQ) The patient was counseled regarding the procedure, its indications, risks, potential compli cations and alternatives. Any questions were answered. Consent was obtained. Chele Lynn MD, 04/22/2020 9:59 AM [facility] Portions of this chart may have been created with [employer] voice recognition software. Occasi onal wrong-word or [...] Endoscopy Patient: Magi Gómez : 1955 Acct: [id number] Exam Date: April Doctor: CHELE LYNN MD [...] If unable to reach your physician, call [facility] Emergency Department at Ext. 2500 Your doctor [...] Nurse Signature Patient Signature Escort Signature Date HCELE LYNN MD 04/22/2020 10:23:56 AM This report has been signed electronically. documented in this encounter Plan of Treatment +--------+---------+ + + + | Date | Type | Specialty | Care Team | Description | +--------+---------+ + + + | 07/01/ | Office | Gastroenterology | Galo Majano, | | | 2019 | Visit | | CLIENT DELIVERY MANAGER [address] | | | | | | [place] | | | | | | [place] [address] | | | | | | [phone] | | | | | | | [...] + +--------+ + + + | *TERMED* PA UPPER GI | Routin | 04/22/2020 | [...] + + + | [facility] Name: [facility]i G[facility]mez | [place] | | Darcy.Procedure Date: 04/22/2020 9:47 AMMRN: [id number] Number: | | | [id number] of : [id number] Status: FinalizedAttending MD: | | | CHELE LYNN , [facility]cedure Type: Upper GI | | | endoscopyIndications: [...] AMNumber of Addenda: 0 | | | [facility] | | | - Duodenitis. Biopsied. Appearance [...] |Number of Addenda: 0 | | | [facility] | | + + + + +---------+ [...] performance | | | characteristics determined by [facility]. It has not been | | | cleared or approved by the U.S. Food and Drug Administration. The | | | FDA has determined that such clearance or approval is not necessary. | | | This test is used for clinical purposes. It should not be regarded | | | as investigational or for research. [facility] is certified | | | under the Clinical Laboratory Improvement Amendments of 1988 (CLIA) | | | as qualified to perform high complexity clinical laboratory testing. | | | PERFORMING LABORATORY: The technical component was performed by | | | [facility], [address] [place] [id number] (Medical | | | Director: Jennie Roberts MD; CLIA# [id number]). Professional | | | interpretation was performed by [facility] | | | [facility], [address] [place] [address] | | | [id number] (Dental Assisting Instructor: Antoni Prince M.D.). Diagnostician: | | | Antoni Prince MD Pathologist Electronically Signed 04/23/2020 | | | | | + + + + +---------+ + + | Performing | Address | City/State/Unm Hospitalcode | Phone Number | | Organization | | | | + +---------+ + + | [facility] | | | | | [employer] | | | | + +---------+ + [...]
--- OUTSIDE RECORDS SUMMARY | 2020-05-26 08:26 | XMS ---
PreManage Notification: BRIDGER MENA Security Elevator Service Technician Events No recent Security Events currently on file CRITERIA MET - [facility] - 2 Visits in 30 Days CARE PROVIDERS REVA YOUNG Physician Telescope Operator 12/15/2019-Current PHONE: Unknown Ernst has no Care Guidelines for this patient. Ebonie VISIT COUNT (12 MO.) 3 [facility] TOTAL 3 NOTE: Visits indicate total known visits. ED/UCC VISIT TRACKING (12 MO.) 05/26/2020 08:24 [facility] [place] TYPE: Emergency COMPLAINT: - BLOOD PRESSURE PROBLEM 05/14/2020 13:26 [facility] [place] TYPE: Emergency COMPLAINT: - DIZZINESS, NAUSEA/VOMITING DIAGNOSES: - Dehydration - Other terminal worker (current) drug therapy - Anxiety disorder, unspecified - Pure hypercholesterolemia, unspecified - Nicotine dependence, unspecified, uncomplicated - Diarrhea, unspecified - Major depressive disorder, single episode, unspecified - Allergy status to sulfonamides status - Allergy status to other drugs, medicaments and biological sub - Nausea with vomiting, unspecified - Essential (primary) hypertension 12/12/2019 20:11 [facility] [place] TYPE: Emergency COMPLAINT: - FLU SYMPTOMS DIAGNOSES: - Nicotine dependence, unspecified, uncomplicated - Pure hypercholesterolemia, unspecified - Essential (primary) hypertension - Other terminal worker (current) drug therapy - Major depressive disorder, single episode, unspecified - Allergy status to sulfonamides status - Allergy status to other drugs, medicaments and biological sub - Viral infection, unspecified - Anxiety disorder, unspecified - Unspecified abdominal pain INPATIENT VISIT TRACKING (12 MO.) No inpatient visits to display in this time frame [email or web address]
[2020-05-26] MEDS ORDERED: FLUOXETINE HCL20 MG PO (08:41)
[2020-05-26] MEDS ORDERED: PRAVASTATIN SOD40 MG PO (08:41)
[2020-05-26] MEDS ORDERED: BACLOFEN10 MG PO (08:46)
[2020-05-26] MEDS ORDERED: PREDNISONE20 MG PO (10:01)
--- NOTE | 2020-05-27 09:14 | EKG ---
[facility] [address] [place] [address] Signed Poor data quality, interpretation may be adversely affected Normal sinus rhythm Anterior infarct , age undetermined Abnormal ECG When compared with ECG of 03-OCT-2018 11:30, Junctional rhythm has replaced Sinus rhythm Anterior infarct is now present T wave inversion now evident in Inferior leads Nonspecific T wave abnormality no longer evident in Lateral leads Confirmed by PRICILA TEE MD ([id number]) on 05/27/2020 9:14:07 AM Electronically Signed By: PRICILA TEE MD 05/27/20 0914 PATIENT NAME: BRIDGER MENA Electrocardiogram DATE OF : 55 PHYSICIAN: PRICILA TEE MD REPORT #: [id number] REPORT IS CONFIDENTIAL AND NOT TO BE RELEASED WITHOUT AUTHORIZATION
== END 2020-05-26 12:26 | disposition home or self-care (01) ==
LOC: ED 08:23
DX: I10 Essential (primary) hypertension (principal); R07.89 Other chest pain; M54.12 Radiculopathy, cervical region; F32.9 Major depressive disorder, single episode, unspecified; F41.9 Anxiety disorder, unspecified; F17.200 Nicotine dependence, unspecified, uncomplicated; Z88.8 Allergy status to other drugs, medicaments and biological substances; Z88.2 Allergy status to sulfonamides; Z79.899 Other long term (current) drug therapy
CPT/HCPCS: 71045; 80053; 83735; 84484; 85025; 93005; 93010; 96374; 99285-25; J1100; J1885